=== PATIENT | female | born 1935 | race Caucasian/White ===

== ENCOUNTER → 2016-09-25 | Outpatient (CLI) | payer BC ==
[~2016-09-25] MED LIST: ACET-1256 PO; ACIDOPHILUS PO; ACP20 PO; ARM1 PO; ARTIDRO2 OPB; ASCO500T16 PO; ASPI-428 PO; ASPI81TA28 PO; ATEN-173 PO; B-CO1CAP3 PO; CALC600T9 PO; CEFU1TAB36 PO; CLON1TAB3 PO; CLRD24 PO; COEN100C11 PO; CRFL PO; CRS/10 PO; CRS10 PO; DYZC25/50 PO; FEXO1TAB49 PO; GABA-113 PO; GARLTAB3 PO; GLUCPOW41 PO; HYDR25SU20 PR; LACT10CA3 PO; LISI5TAB PO; MISCCAP80 PO; MULT-190 PO; MULT-506 PO; NXM/40 PO; OMEG10007 PO; OSCAL ULTRA PO; REFRESH EYE DROPS; REGADENOSON 0.4 MG/5 ML SYR ONE; RIVA1TAB4 PO; TRAM37.52 PO; TRAMTAB5 PO; TRIA1SPR4 NAE; TRIATAB3 PO; [UNRECOGNIZED DRUG - CODE] VAGRING; [UNRECOGNIZED DRUG - OTHER] PO; [UNRECOGNIZED DRUG - OTHER] PV
--- NOTE | 2016-09-25 18:17 | MYOCARDIAL PERFUSION SCAN ---
[facility] CARDIOLITE STRESS TEST IMAGING TECHNIQUE: For the rest portion of the study 32.4 mCi of technetium- 99m Cardiolite IV was injected at 1:10 p.m. on 09/25/2016. Thirty minutes following the injection, imaging of the heart as performed in multiple projections. For the rest portion of the study, 10.8 mCi of technetium-99m Cardiolite was injected IV at 11:15 a.m. One hour following the injection, imaging of the heart was performed in the same projections. FINDINGS: The short axis, vertical long axis, and horizontal long axis images were reviewed in detail. There was a small to moderate size reversible defect noted on the stress images which may represent a small to moderate area of ischemia or breast attenuation. Review of gated images suggested the defect was primarily due to breast attenuation, however, a small area of ischemia could not be definitively excluded. Gated images showed normal left ventricular systolic function with estimated ejection fraction of 84%. No definite wall motion abnormality is seen. IMPRESSION: 1. No definite scintigraphic evidence of myocardial ischemia. A small to moderate apical defect was felt to be predominantly breast attenuation but a small area of anterior myocardial ischemia could not be excluded. 2. Normal left ventricular systolic function with no wall motion abnormalities ( EF=84%). 3. No ECG changes during pharmacologic stress. 4. No symptoms. [facility]
== END | disposition home or self-care (01) ==
LOC: C.NUCL 10:51
PROVIDERS: ATTEND Family Medicine
DX: I65.29 Occlusion and stenosis of unspecified carotid artery (principal); R94.31 Abnormal electrocardiogram [ECG] [EKG]; Z01.810 Encounter for preprocedural cardiovascular examination

== ENCOUNTER → 2016-10-30 | Outpatient (CLI) | payer BC ==
[~2016-10-30] MED LIST changes: -REGADENOSON 0.4 MG/5 ML SYR ONE
[2016-10-30 18:27] LABS: HEMATOCRIT 40.3 % (37-47); MEAN CELL VOLUME 95.7 fL (80-100); MEAN CORPUSCULAR HEMOGLOBIN 32.1 pg (25-34); MEAN CORPUSCULAR HGB CONC 33.5 g/dl (32-36); MEAN PLATELET VOLUME 11.3 fL (7.4-10.4); PLATELET COUNT 210 K/uL (130-400); RED BLOOD COUNT 4.21 M/uL (4.2-5.4)
[2016-10-30 18:31] LABS: INR 1.1 (0.9-1.1); PROTHROMBIN TIME (PATIENT) 11.6 SECONDS (9.0-12.0)
[2016-10-30 18:52] LABS: BLOOD UREA NITROGEN 23 mg/dl (7-18); BUN/CREATININE RATIO 20.7 (10-20); CALCIUM 9.5 mg/dl (8.5-10.1); CARBON DIOXIDE 31 mmol/L (21-32); CHLORIDE 104 mmol/L (98-107); GLUCOSE 90 mg/dl (70-99); POTASSIUM 4.2 mmol/L (3.5-5.1); SODIUM 144 mmol/L (136-145)
== END | disposition home or self-care (01) ==
LOC: C.LABMFLN 13:52
PROVIDERS: ATTEND Internal Medicine Cardiovascular Disease
DX: I10 Essential (primary) hypertension (principal); E78.00 Pure hypercholesterolemia, unspecified; R06.09 Other forms of dyspnea; I35.0 Nonrheumatic aortic (valve) stenosis; R94.39 Abnormal result of other cardiovascular function study

== ENCOUNTER → 2016-11-11 | Day surgery (SDC) | payer BC ==
[~2016-11-11] VITALS: Ht 162.6 cm; Wt 77.0 kg
[~2016-11-11] MED LIST changes: +ACETAMINOPHEN 325 MG TAB PO PRN; +ASPIRIN 81 MG CHEW ONE; +FENTANYL CITRATE INJ 50 MCG/1 ML 2 ML VIAL ONE; +HEPARIN SOD (PORCINE) 1000 UNIT/ML 10 ML VIAL ONE; +MIDAZOLAM HCL 1 MG/ML 2ML VIAL ONE; +NITROGLYCERIN/D5W 100MCG/ML 20ML SYR ONE; +NiCARDipine HCL INJ 2.5 MG/ML 10 ML AMP ONE; +ONDANSETRON INJ 2 MG/ML 2 ML VIAL IV PRN; +SODIUM CHLORIDE 0.9% 1000ML 1,000 ML IV SCH; +SODIUM CHLORIDE 0.9% 1000ML 250 ML IV PRN
[2016-11-11 07:05] VITALS: BP 151/97; PULSE 63; TEMP 36.6; O2SAT 99; Ht 162.6 cm; Wt 77.0 kg
--- NOTE | 2016-11-11 08:06 | Procedure Note ---
Pre-Mod Sedation Assessment General Date of Moderate Sedation: Nov 11, 2016. Vital Signs: Vital Signs Past 12 Hours Date Time Temp Pulse Resp B/P Pulse Ox O2 Delivery O2 Flow Rate FiO2 11/11/16 07:05 36.6 63 18 151/97 99 Room Air Review Cardiovascular: regular rate, rhythm, + systolic murmur Abdomen: non tender, soft Lungs: lungs clear Pre-Sedation Airway Assessment Oral Cavity: Dentures Short Thick Neck: No Hx of Sleep Apnea: No Smoking Status: Never Smoker Procedure Planning Contraindications-for Mod Sed: None Yes Notes The planned sedation has been discussed with the patient and consent obtained. I have identified the patient, determined the appropriateness of sedation and have assessed the patient immediately prior to the procedure. All medicine(s) and interventions are by my order.
--- NOTE | 2016-11-11 08:06 | History & Physical Bridge Note ---
H&P Re-Evaluation Bridge Note: I have examined the patient, reviewed the History & Physical and in the interval since the performance of the History & Physical I have noted the following changes of clinical significance: No changes noted
--- NOTE | 2016-11-11 09:08 | Procedure Note ---
Post-Mod Sedation Assessment General Date of Moderate Sedation Nov 11, 2016. Vital Signs: Vital Signs Past 12 Hours Date Time Temp Pulse Resp B/P Pulse Ox O2 Delivery O2 Flow Rate FiO2 11/11/16 07:05 36.6 63 18 151/97 99 Room Air Review - Discharge Criteria Vital Signs Stable: Yes Alert/Oriented/Conversant: Yes Returned to Baseline Mental St: Yes Nausea Absent/Minimal: Yes Pain/Discomfort/Absent/Minimal: Yes Normal/Baseline Respirations: Yes Active Bleeding?: No
--- NOTE | 2016-11-11 09:16 | Cardiac Catheterization ---
Procedure Note Procedure Date Nov 11, 2016. Pre-Procedure Diagnosis Positive Stress Test AUC Score 9 Post-Procedure Diagnosis Mild CAD Procedure(s) Performed Coronary Angiography Payroll Accounting Clerk Dr. Foley Insulation Supervisor(s) Mckenna Estimated Blood Loss < 20 ml Medication(s) Fentanyl, Heparin, Nicardipine, Versed, Lidocaine 1% Summary of Findings Coronary angiography: 1. Left main coronary artery: No significant CAD noted within the LM CA. 2. Left anterior descending: The LAD is a medium caliber vessel that extends toward the apex. Proximal LAD 10%. Small D1, without angiographic evidence of CAD. Remainder of LAD without significant CAD. 3. Circumflex: The circumflex is a large caliber vessel. It gives rise to a small caliber high OM 1, very small OM2, and then tapers to a small caliber AV groove circumflex. There is a large OM3 with proximal 40% and mid 30% stenosis. 4. Right coronary artery: The RCA is dominant. Proximal RCA 20%. Small posterior lateral vessel and medium caliber PDA. No angiographic evidence of CAD within the PL or PDA. Procedural notes: 1. There were no attempt to cross the aortic valve as she has documented moderate aortic stenosis on echocardiogram. Impression: 1. 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 2. Dominant RCA. 3. Previously documented moderate aortic stenosis. Plan: 1. Medical therapy for nonobstructive CAD. Hemodynamics Rest Ao: 159/62 Final Ao: 144/55 LV: n/a Recommendations Medical therapy and/or Counseling Specimens None Radiation Exposure (mGy) 950 mGy. Fluoro time 3.3 min. Contrast (mls) 50 ml Procedural Complication(s) None Disposition Tomographic Tech Holding/Recovery [facility] Data Cardiac Status Clinical evaluation leading to the procedure CAD Presntation: Positive Stress Test Anginal Classification: No symptoms Heart Failure: No Cardiogenic Shock w/in 24Hrs: No Cardiac Arrest w/in 24Hrs: No Imaging studies past 6 months: Yes (echo - moderate aortic stenosis) Stress studies past 6 months: No Standard Exercise Stress Test: No Stress Echocardiogram: No Stress Testing w/SPECT MPI: Yes - Positive, Risk/Extent of Ischemia (High) Cardiac CTA: No Coronary Anatomy Dominant: Right Left Main (% Stenosis): Normal LAD (% Stenosis): Proximal (10%) D1 (% Stenosis): Normal Circumflex (% Stenosis): Normal OM1 (% Stenosis): Normal OM2 (% Stenosis): Normal OM3 (% Stenosis): Proximal (40%), Mid (30%) RCA (% Stenosis): Proximal (20%) R PDA (% Stenosis): Normal R PL1 (% Stenosis): Normal Left Ventricular Angiography EF (%): n/a Diagnostic Physician's Name: Collin Foley MD Status: Elective Closure Device Percutaneous Entry Location: Radial Closure Device: Radial Band Recommendations: Medical therapy and/or Counseling
--- NOTE | 2016-11-11 09:20 | Discharge Instructions ---
Discharge Instructions Visit Reason for Visit: Cardiac catheterization for abnormal nuclear stress test. Discharge Discharge Diagnosis / Problem: Mild non-obstructive coronary artery disease. Discharge Goals Goal(s): Diagnostic testing Medications Restart Stopped Medication(s): Resume your usual medications. No changes were made today. Activity Recommendations Activity Limitations: per Instructions/Follow-up section Anesthesia . Post Anesthesia Instructions: If you have had General Anesthesia or IV Sedation: * Do not drive today. * Resume driving when surgeon permits. * Do not make important decisions or sign legal documents today. * Call surgeon for: 1. Temperature elevations greater than 101 degrees F. 2. Uncontrollable pain. 3. Excessive bleeding. 4. Persistent nausea and vomiting. 5. Medication intolerance (nausea, vomiting or rash). * For nausea and vomiting use only clear liquids such as: tea, soda, bouillon until nausea subsides, then gradually increase diet as tolerated. * If you have any concerns or questions, call your surgeon's office. If physician is unavailable and it is an emergency, call 911 or go to the nearest emergency room. . Instructions / Follow-Up Instructions / Follow-Up Follow up with Dr. Foley as scheduled. ACTIVITY RECOMMENDATIONS: Excess manipulation of the wrist should be avoided for the next 24-48 hours. * No lifting over 2 pounds (approximately a 1/2 gallon of milk) with the utilized arm for 24 hours. * No strenuous activity such as bowling or tennis for 3 days. * Keep the site of the procedure covered with a bandage for 24 hours. *You may shower the day after the procedure. Do not take a tub bath or submerge the puncture site in water for the next 3 days. *Do not operate any motorized equipment for 3 days. SPECIAL CARE INSTRUCTIONS: The site may be slightly bruised and sore following your procedure. Should any of the following occur, contact the Dr. who performed your procedure. 1. Redness/inflammation, swelling, chills, or fever, or colored drainage at procedure site within 3-7 days after your procedure. 2. Coldness, discoloration, ongoing numbness, severe pain, or swelling. Expect mild tingling of hand and tenderness at the puncture site for up to three days. If this persists beyond three days, or other symptoms develop, notify the DrHarini who performed your procedure. BLEEDING: If the procedure site on your wrist begins to bleed, do not panic 1. Place 1 or 2 fingers firmly just slightly above the insertion site to stop the bleeding. You may be able to feel your pulse as you hold pressure. 2. Lift your finger after 5 minutes to see if the bleeding has stopped. 3. Once the bleeding has stopped, gently wipe the wrist area clean with a bandage. * If the bleeding from your wrist does not stop after 10 minutes, or if there is a large amount of bleeding or spurting, call 911 (do not drive yourself to the hospital). SKIN IRRITATION: * You may experience some redness and/or swelling in the area where radiation was administered. If any skin irritation occurs, please contact your family physician. FOLLOW UP VISIT: Keep any scheduled doctor appointments. Diet Recommendations Recommended Home Diet: low cholesterol Procedures Procedures Performed: 1. Cardiac catheterization (coronary angiography) Pending Studies Studies pending at discharge: yes List of pending studies: Lab/blood work to be done as instructed by research laboratory manager staff. Medical Emergencies . Who to Call and When: Medical Emergencies: If at any time you feel your situation is an emergency, please call 911 immediately. . Non-Emergent Contact Non-Emergency issues call your: Primary Care Provider, Rural Mail Contractor . . "Provider Documentation" section prepared by Collin Gonzáles.
[2016-11-11 11:54] VITALS: BP 164/72; PULSE 78; O2SAT 98
== END | disposition home or self-care (01) ==
LOC: C.CATH 06:28
PROVIDERS: ATTEND Internal Medicine Cardiovascular Disease
DX: I25.10 Atherosclerotic heart disease of native coronary artery without angina pectoris (principal)

== ENCOUNTER → 2016-11-25 | Outpatient (CLI) | payer BC, OTHER ==
[~2016-11-25] VITALS: Ht 162.6 cm; Wt 81.2 kg
[~2016-11-25] MED LIST changes: +ACET-24 PO; -ACETAMINOPHEN 325 MG TAB PO PRN; -ACIDOPHILUS PO; -ACP20 PO; -ARM1 PO; -ASPIRIN 81 MG CHEW ONE; -CLON1TAB3 PO; -CLRD24 PO; -CRS10 PO; -DYZC25/50 PO; -FENTANYL CITRATE INJ 50 MCG/1 ML 2 ML VIAL ONE; +FRRG PO; -GARLTAB3 PO; -HEPARIN SOD (PORCINE) 1000 UNIT/ML 10 ML VIAL ONE; -MIDAZOLAM HCL 1 MG/ML 2ML VIAL ONE; -NITROGLYCERIN/D5W 100MCG/ML 20ML SYR ONE; -NiCARDipine HCL INJ 2.5 MG/ML 10 ML AMP ONE; -ONDANSETRON INJ 2 MG/ML 2 ML VIAL IV PRN; -OSCAL ULTRA PO; -REFRESH EYE DROPS; -SODIUM CHLORIDE 0.9% 1000ML 1,000 ML IV SCH; -SODIUM CHLORIDE 0.9% 1000ML 250 ML IV PRN; +ULT50X PO; -[UNRECOGNIZED DRUG - OTHER] PO; -[UNRECOGNIZED DRUG - OTHER] PV
[2016-11-25 12:59] VITALS: Ht 162.6 cm; Wt 81.2 kg
--- NOTE | 2016-11-25 13:43 | PAT Medication Instructions ---
Service Date Nov 25, 2016. Current Home Medication List Acetaminophen (Tylenol), 1,000 MG PO BID Ascorbic Acid (Ascorbic Acid), 500 MG PO QAM Aspirin (Aspirin Ec), 81 MG PO QAM Atenolol (Tenormin), 25 MG PO QAM B-Complex Vitamins (B Complex), 1 TAB PO QAM Calcium Carbonate-Vitamin D (Calcium + D), 1 TAB PO BID Coenzyme Q10 (Ubidecarenone) (Coq-10), 100 MG PO QAM Esomeprazole Magnesium (Nexium), 40 MG PO QAM Fexofenadine Hcl (Roberta Allergy), 180 MG PO QAM Fish Oil (Asher-3), 1 CAP PO QPM Gabapentin (Neurontin), 300 MG PO TID Itthlheirdy-Kwcdazcjsgp-Rkvutc (Glucosamine & Chrondroiti), 1 TAB PO BID Hydrocortisone Acetate (Rectal (Anusol-Hc), 25 MG PA BID Multivitamin (Multivitamin), 1 TAB PO QAM Ocuvite Preservision (Ocuvite Preservision), 1 TAB PO BID Probiotic Product (Probiotic), 1 CAP PO QPM Rosuvastatin Calcium (Crestor), 10 MG PO QPM Sucralfate (Carafate), 10 ML PO QID PRN for prn Tramadol-Acetaminophen (Ultracet), 1 TAB PO Q4H PRN for Pain Triamcinolone Acetonide (Nasal (Nasacort Allergy 24Hr), 2 SPRAYS MANASA QAM Triamterene/Hctz (Triamterene/Hctz 37.5-25MG), 1 TAB PO QAM Medication Instructions For Your Scheduled Surgery - Hold the following medications 2 weeks prior to surgery: Zizmztgddij-Ytejpfkagwj-Hetcsi (Glucosamine & Chrondroiti), 1 TAB PO BID Fish Oil (Asher-3), 1 CAP PO QPM Coenzyme Q10 (Ubidecarenone) (Coq-10), 100 MG PO QAM - Hold the following medications the morning of surgery: Triamterene/Hctz (Triamterene/Hctz 37.5-25MG), 1 TAB PO QAM Sucralfate (Carafate), 10 ML PO QID PRN for prn Ocuvite Preservision (Ocuvite Preservision), 1 TAB PO BID Multivitamin (Multivitamin), 1 TAB PO QAM Hydrocortisone Acetate (Rectal (Anusol-Hc), 25 MG PA BID Fexofenadine Hcl (Roberta Allergy), 180 MG PO QAM Calcium Carbonate-Vitamin D (Calcium + D), 1 TAB PO BID B-Complex Vitamins (B Complex), 1 TAB PO QAM Ascorbic Acid (Ascorbic Acid), 500 MG PO QAM - Take the following medications the morning of surgery with a sip of water: Triamcinolone Acetonide (Nasal (Nasacort Allergy 24Hr), 2 SPRAYS MANASA QAM Tramadol-Acetaminophen (Ultracet), 1 TAB PO Q4H PRN for Pain (okay to take up to 4 hours prior to surgery if needed) Gabapentin (Neurontin), 300 MG PO TID Esomeprazole Magnesium (Nexium), 40 MG PO QAM Atenolol (Tenormin), 25 MG PO QAM Acetaminophen (Tylenol), 1,000 MG PO BID Aspirin (Aspirin Ec), 81 MG PO QAM (okay to continue per surgeon) - Take the following medications as scheduled the night before surgery: Tramadol-Acetaminophen (Ultracet), 1 TAB PO Q4H PRN for Pain Sucralfate (Carafate), 10 ML PO QID PRN for prn Rosuvastatin Calcium (Crestor), 10 MG PO QPM Probiotic Product (Probiotic), 1 CAP PO QPM Ocuvite Preservision (Ocuvite Preservision), 1 TAB PO BID Hydrocortisone Acetate (Rectal (Anusol-Hc), 25 MG PA BID Gabapentin (Neurontin), 300 MG PO TID Calcium Carbonate-Vitamin D (Calcium + D), 1 TAB PO BID Acetaminophen (Tylenol), 1,000 MG PO BID If you have any questions please call us at [phone] (Izzy Saenz PA-C) or [phone] or [phone]
[2016-11-25 14:40] LABS: BASO % 0.8 %; BASO ABS # 0.05 K/uL (0-0.2); COMPLETE YES; EOS % 1.3 %; HEMATOCRIT 39.7 % (37-47); IG% 0.2 %; LYMPH % 24.3 %; LYMPH ABS # 1.47 K/uL (1.2-3.4); MEAN CELL VOLUME 93.9 fL (80-100); MEAN PLATELET VOLUME 11.1 fL (7.4-10.4); MONO % 11.4 %; PLATELET COUNT 236 K/uL (130-400); RED BLOOD COUNT 4.23 M/uL (4.2-5.4); WHITE BLOOD COUNT 6.06 K/uL (4.8-10.8)
[2016-11-25 14:47] LABS: PARTIAL THROMBOPLASTIN RATIO 1.1; PROTHROMBIN TIME (PATIENT) 11.1 SECONDS (9.0-12.0)
== END | disposition home or self-care (01) ==
LOC: C.LAB 08:00 → EDSTATUS 12-22 12:15
PROVIDERS: ATTEND Orthopaedic Surgery Sports Medicine
DX: Z01.818 Encounter for other preprocedural examination (principal); M17.9 Osteoarthritis of knee, unspecified

== ENCOUNTER 2016-12-11 14:13 | Inpatient (IN) | payer BC ==
[~2016-12-11] VITALS: Ht 162.6 cm; Wt 79.0 kg
[~2016-12-11 14:13] MED LIST changes: -ACET-24 PO; -ARTIDRO2 OPB; -ASPI-428 PO; -CEFU1TAB36 PO; -FRRG PO; -LACT10CA3 PO; -LISI5TAB PO; -RIVA1TAB4 PO; -TRAMTAB5 PO; -ULT50X PO; -[UNRECOGNIZED DRUG - CODE] VAGRING
[2016-12-11] MEDS ORDERED: SODIUM CHLORIDE 0.9% 1000ML 1,000 ML IV STA (14:51)
[2016-12-11] MEDS ORDERED: DILTIAZEM HCL 5 MG/ML 5 ML VIAL IV STA (14:51)
--- NOTE | 2016-12-11 14:53 | DIAGNOSTIC IMAGING REPORT ---
CHEST ONE VIEW PORTABLE CLINICAL HISTORY: Palpitations COMPARISON STUDY: No previous studies for comparison. FINDINGS: The heart is at the upper limits of normal in size. There is no failure. There is no focal pulmonary consolidation. There are no pleural effusions. There is minimal left basilar atelectasis.[ IMPRESSION: No active disease in the chest. Electronically signed by: Wood Geiger M.D. 12/11/2016 2:51 PM Dictated Date/Time: 12/11/2016 2:51 PM
[2016-12-11 15:08] LABS: BASO % 0.6 %; BASO ABS # 0.04 K/uL (0-0.2); COMPLETE YES; HEMATOCRIT 44.8 % (37-47); IG% 0.1 %; LYMPH % 27.1 %; LYMPH ABS # 1.89 K/uL (1.2-3.4); MEAN CELL VOLUME 92.9 fL (80-100); MEAN CORPUSCULAR HEMOGLOBIN 31.3 pg (25-34); MEAN CORPUSCULAR HGB CONC 33.7 g/dl (32-36); MEAN PLATELET VOLUME 10.5 fL (7.4-10.4); NEUT % 64.2 %; PLATELET COUNT 267 K/uL (130-400); RED BLOOD COUNT 4.82 M/uL (4.2-5.4); WHITE BLOOD COUNT 6.98 K/uL (4.8-10.8)
[2016-12-11 15:25] LABS: INR 1.1 (0.9-1.1); PARTIAL THROMBOPLASTIN RATIO 1.1; PROTHROMBIN TIME (PATIENT) 11.6 SECONDS (9.0-12.0)
[2016-12-11 15:28] LABS: CALCIUM 10.2 mg/dl (8.5-10.1); CREATININE 1.1 mg/dl (0.60-1.20); MAGNESIUM 2.2 mg/dl (1.8-2.4); POTASSIUM 4.2 mmol/L (3.5-5.1)
[2016-12-11 15:51] LABS: CKMB/CK RATIO 1.5 (0-3.0); THYROID STIMULATING HORMONE 3.24 uIu/ml (0.300-4.500)
[2016-12-11] MEDS ORDERED: CEFU1TAB36 PO (15:59)
--- NOTE | 2016-12-11 16:24 | DIAGNOSTIC IMAGING REPORT ---
CT SCAN OF THE BRAIN WITHOUT IV CONTRAST CLINICAL HISTORY: Headache. COMPARISON STUDY: MRI of the brain dated 04/23/2016. TECHNIQUE: Unenhanced axial CT scan of the brain is performed from the vertex to the skull base. FINDINGS: Brain parenchyma: There are age-related involutional changes noting mild subcortical and periventricular microangiopathic change. There is no hemorrhage, mass effect, or evidence of acute territorial ischemia by CT criteria. Amaya-white matter is preserved. No extra-axial fluid collection is seen. Ventricles, sulci, cisterns: Prominent secondary to involutional change. Intracranial vasculature: There is atherosclerotic calcification of the cavernous carotid and vertebral arteries. Calvarium: Unremarkable. Sinuses and mastoids: The visualized paranasal sinuses are clear. The mastoid air cells are well pneumatized. Orbits: The bony orbits are grossly intact. IMPRESSION: There is no hemorrhage, mass effect, or evidence of acute territorial ischemia by CT criteria. Electronically signed by: Francisco Cervantes M.D. 12/11/2016 4:22 PM Dictated Date/Time: 12/11/2016 4:21 PM
[2016-12-11 16:36] LABS: URINE APPEARANCE CLEAR (CLEAR); URINE BILIRUBIN NEG (NEG); URINE COLOR YELLOW; URINE NITRITE NEG (NEG); URINE SPECIFIC GRAVITY 1.007 (1.000-1.030); UROBILINOGEN NEG (NEG)
--- NOTE | 2016-12-11 16:38 | DIAGNOSTIC IMAGING REPORT ---
MAXILLOFACIAL CT CT DOSE: 850.01 mGy.cm HISTORY: Pain. Sinusitis. RIVERO and sinus pain, requested by PCP TECHNIQUE: Multiaxial CT images of the maxillofacial region were performed and reformatted in the coronal plane without the use of contrast. COMPARISON: None. FINDINGS: All major sinuses are clear. Ostiomeatal units are patent bilaterally. Moderate hypertrophic change nasal turbinates. Osseous structures are intact. Prior partial ethmoidectomy. IMPRESSION: All major sinuses are clear. 2. Ostiomeatal units are patent. 3. Hypertrophic change nasal turbinates. Electronically signed by: Darien Posada M.D. 12/11/2016 4:36 PM Dictated Date/Time: 12/11/2016 4:35 PM
[2016-12-11 16:44] LABS: MANUAL MICROSCOPIC REQUIRED? NO; REVIEW REQ? NO
[2016-12-11] MEDS ORDERED: TRAMADOL/ACETAMINOPHEN 37.5/325MG TAB PO PRN (17:45)
[2016-12-11] MEDS ORDERED: MAGNESIUM HYDROXIDE SUSP 30 ML UDC PO PRN (17:45)
[2016-12-11] MEDS ORDERED: SUCRALFATE 1 GM/10 ML UDC PO PRN (17:45)
[2016-12-11] MEDS ORDERED: ACETAMINOPHEN 325 MG TAB PO PRN (17:45)
[2016-12-11] MEDS ORDERED: ALUMINUM/MAGNESIUM/SIMETH (MAALOX MAX) 30 ML UDC PO PRN (17:45)
[2016-12-11] MEDS ORDERED: POLYETHYLENE (MIRALAX) 17 GM PACK PO PRN (17:45)
[2016-12-11] MEDS ORDERED: ONDANSETRON INJ 2 MG/ML 2 ML VIAL IV PRN (17:45)
[2016-12-11 19:22] VITALS: BP 160/82; PULSE 68; TEMP 37; O2SAT 96; Ht 162.6 cm; Wt 79.0 kg
--- NOTE | 2016-12-11 19:25 | History and Physical ---
History & Physical Date & Time of Service: Dec 11, 2016 at 19:02 Chief Complaint: New On Set A-Fib Primary Care Physician: Cassidy Hernandez M.D. History of Present Illness Source: patient, clinic records, hospital records This is an 81 y/o female with a history of breast cancer s/p lumpectomy and radiation, carotid stenosis s/p carotid endarterectomy, hypertension, hyperlipidemia, h/o TIA in April 2016, lumbar stenosis, and GERD who presented to the ED on 12/11 with palpitations, dizziness, nausea and new onset A. fib. The patient presented to her PCP office following up on sinusitis. She had been complaining of palpitations and dizziness for the last week. An EKG was done in the office and she was found to have new onset of A. fib. She was then sent to the ED for further evaluation. The patient states that her palpitations are intermittent and are accompanied by dizziness and nausea. She denies any chest pain or shortness of breath. The patient has a history of a TIA in April 2016 and was then found to have carotid stenosis, which was followed by carotid endarterectomy. The patient recently had an echocardiogram in September 2016 which showed moderate aortic stenosis. She also had a nuclear stress test at that time that showed an apical defect that was possibly due to anterior myocardial ischemia. The patient therefore had a cardiac catheterization in October 2016, but this only showed mild, nonobstructive CAD. The patient denies fevers, chills, sweats, chest pain, claudication, cough , wheezing, shortness of breath, vomiting, abdominal pain, dysuria, hematuria, urinary retention, paralysis, weakness, numbness and tingling. Past Medical/Surgical History Medical Problems: (1) TIA (transient ischemic attack) April 2016 Status: Resolved H/o breast cancer status post lumpectomy and radiation Carotid stenosis Hypertension Hyperlipidemia GERD Surgical Problems: (1) S/P carotid endarterectomy April 2016 at [facility] Status: Resolved Family History Diabetes mellitus Hypertension Pancreatic cancer Stroke Social History Smoking Status: Never Smoker Smokeless Tobacco Use: No Alcohol Use: none Drug Use: none Marital Status: Housing status: lives alone Occupational Status: retired Immunizations History of Influenza Vaccine: Yes History of Tetanus Vaccine?: Yes History of Pneumococcal: Yes History of Hepatitis B Vaccine: Yes Allergies Coded Allergies: Levofloxacin (Unverified Allergy, Unknown, muscle and joint pain, 11/25/16) Tetanus Toxoid (Verified Allergy, Unknown, CHEST PAIN, RESTLESSNESS, ) Atorvastatin (Verified Adverse Reaction, Intermediate, ELEVATED OPK LEVEL PER FAMILY PRACTICE NOTES ON CHART, 11/25/16) Tetracycline (Verified Adverse Reaction, Unknown, ESOPHAGEAL EROSION, ) Home Medications Scheduled Acetaminophen (Tylenol), 1,000 MG PO BID Ascorbic Acid (Ascorbic Acid), 500 MG PO QAM Aspirin (Aspirin Ec), 81 MG PO QAM Atenolol (Tenormin), 25 MG PO QPM B-Complex Vitamins (B Complex), 1 TAB PO QAM Calcium Carbonate-Vitamin D (Calcium + D), 1 TAB PO BID Cefuroxime Axetil (Cefuroxime Axetil), 1 TAB PO Q12 Coenzyme Q10 (Ubidecarenone) (Coq-10), 100 MG PO QAM Esomeprazole Magnesium (Nexium), 40 MG PO QAM Fexofenadine Hcl (Roberta Allergy), 180 MG PO QAM Fish Oil ([place]-3), 1 CAP PO QPM Gabapentin (Neurontin), 300 MG PO TID Mrkyfkycoae-Ohimssssxwi-Qjnmdj (Glucosamine & Chrondroiti), 1 TAB PO BID Multivitamin (Multivitamin), 1 TAB PO QAM Ocuvite Preservision (Ocuvite Preservision), 1 TAB PO BID Probiotic Product (Probiotic), 1 CAP PO QPM Rosuvastatin Calcium (Crestor), 10 MG PO QPM Triamcinolone Acetonide (Nasal (Nasacort Allergy 24Hr), 2 SPRAYS MANASA QAM Triamterene/Hctz (Triamterene/Hctz 37.5-25MG), 1 TAB PO QAM Scheduled PRN Hydrocortisone Acetate (Rectal (Anusol-Hc), 25 MG [place] BID PRN for Hemorrhoids Sucralfate (Carafate), 10 ML PO QID PRN for prn Tramadol-Acetaminophen (Ultracet), 1 TAB PO Q4H PRN for Pain Review of Systems Constitutional: No chills, No fever, No sweats Eyes: No diplopia, No eye pain, No worsening of vision ENT: No hearing loss, No sore throat, No trouble swallowing Respiratory: No cough, No shortness of breath, No wheezing Cardiovascular: + palpitations (associated lightheadedness and nausea), No chest pain, No claudication Abdomen: + nausea, No pain, No vomiting Musculoskeletal: No calf pain, No joint pain, No muscle pain Genitourinary - Female: No dysuria, No hematuria, No urinary retention Neurologic: No numbness/tingling, No paralysis, No weakness Integumentary: No color change, No itch, No rash Physical Exam Vital Signs Date Time Temp Pulse Resp B/P Pulse Ox O2 Delivery O2 Flow Rate FiO2 12/11/16 16:30 98 20 112/68 96 Room Air 12/11/16 15:17 59 16 131/61 94 Room Air 12/11/16 15:10 68 16 124/54 97 Room Air 12/11/16 15:06 67 16 154/89 95 12/11/16 15:00 147 18 139/102 95 Room Air 12/11/16 14:59 133 20 139/102 97 Room Air 12/11/16 14:25 134 12/11/16 14:15 36.7 134 18 138/65 97 Room Air 12/11/16 14:15 97 Room Air 12/11/16 14:15 97 Room Air General Appearance: WD/WN, no apparent distress Head: normocephalic, atraumatic Eyes: normal inspection, PERRL, EOMI ENT: normal ENT inspection, hearing grossly normal, pharynx normal Neck: supple, no JVD, trachea midline Respiratory/Chest: lungs clear, normal breath sounds, no respiratory distress Cardiovascular: regular rate, rhythm (patient normal sinus rhythm during my examination. did have 1 episode afib on monitor briefly, then returned to NSR) , no gallop, no murmur Abdomen/GI: normal bowel sounds, non tender, soft Extremities/Musculoskelatal: normal inspection, no calf tenderness, no pedal edema Neurologic/Psych: alert, normal mood/affect, oriented x 3 Skin: normal color, warm/dry, no rash Diagnostics Laboratory Results Results Past 24 Hours Test 12/11/16 14:58 12/11/16 16:01 Range/Units White Blood Count 6.98 4.8-10.8 K/uL Red Blood Count 4.82 4.2-5.4 M/uL Hemoglobin 15.1 12.0-16.0 g/dL Hematocrit 44.8 37-47 % Mean Corpuscular Volume 92.9 80-100 fL Mean Corpuscular Hemoglobin 31.3 25-34 pg Mean Corpuscular Hemoglobin Concent 33.7 32-36 g/dl Platelet Count 267 130-400 K/uL Mean Platelet Volume 10.5 7.4-10.4 fL Neutrophils (%) (Auto) 64.2 % Lymphocytes (%) (Auto) 27.1 % Monocytes (%) (Auto) 7.0 % Eosinophils (%) (Auto) 1.0 % Basophils (%) (Auto) 0.6 % Neutrophils # (Auto) 4.48 1.4-6.5 K/uL Lymphocytes # (Auto) 1.89 1.2-3.4 K/uL Monocytes # (Auto) 0.49 0.11-0.59 K/uL Eosinophils # (Auto) 0.07 0-0.5 K/uL Basophils # (Auto) 0.04 0-0.2 K/uL RDW Standard Deviation 41.6 36.4-46.3 fL RDW Coefficient of Variation 12.2 11.5-14.5 % Immature Granulocyte % (Auto) 0.1 % Immature Granulocyte # (Auto) 0.01 0.00-0.02 K/uL Prothrombin Time 11.6 9.0-12.0 SECONDS Prothromb Time International Ratio 1.1 0.9-1.1 Activated Partial Thromboplast Time 29.5 21.0-31.0 SECONDS Partial Thromboplastin Ratio 1.1 Sodium Level 142 136-145 mmol/L Potassium Level 4.2 3.5-5.1 mmol/L Chloride Level 103 98-107 mmol/L Carbon Dioxide Level 29 21-32 mmol/L Anion Gap 10.0 3-11 mmol/L Blood Urea Nitrogen 25 7-18 mg/dl Creatinine 1.10 0.60-1.20 mg/dl Est Creatinine Clear Calc Drug Dose 42.1 ml/min Estimated GFR () 54.5 Estimated GFR (Non- 47.0 BUN/Creatinine Ratio 23.0 10-20 Random Glucose 91 70-99 mg/dl Calcium Level 10.2 8.5-10.1 mg/dl Magnesium Level 2.2 1.8-2.4 mg/dl Total Bilirubin 0.4 0.2-1 mg/dl Direct Bilirubin 0.1 0-0.2 mg/dl Aspartate Amino Transf (AST/SGOT) 34 15-37 U/L Alanine Aminotransferase (ALT/SGPT) 20 12-78 U/L Alkaline Phosphatase 81 45-117 U/L Total Creatine Kinase 168 26-192 U/L Creatine Kinase MB 2.5 0.5-3.6 ng/ml Creatine Kinase MB Ratio 1.5 0-3.0 Troponin I 0.097 0-0.045 ng/ml Total Protein 8.8 6.4-8.2 gm/dl Albumin 4.3 3.4-5.0 gm/dl Lipase 160 73-393 U/L Thyroid Stimulating Hormone (TSH) 3.240 0.300-4.500 uIu/ml Free Thyroxine 1.11 0.80-1.60 ng/dl Urine Color YELLOW Urine Appearance CLEAR CLEAR Urine pH 8.0 4.5-7.5 Urine Specific Mason 1.007 1.000-1.030 Urine Protein NEG NEG Urine Glucose (UA) NEG NEG Urine Ketones NEG NEG Urine Occult Blood NEG NEG Urine Nitrite NEG NEG Urine Bilirubin NEG NEG Urine Urobilinogen NEG NEG Urine Leukocyte Esterase NEG NEG Diagnostic Radiology Reviewed the following studies and agree with interpretation as follows: Patient Name: BARBRA GIBBONS Unit Number: [id number] Dictated: 12/11/161450 Transcribed: 12/11/161450 ARG Printed Date/Time: [~ rep prt dt]/[~ rep prt tm] [~ rep ct labl] - [~ rep ct ivnm] [facility] [place] [address] Dictated: 12/11/161450 Transcribed: 12/11/161450 ARG Printed Date/Time: [~ rep prt dt]/[~ rep prt tm] [~ rep ct labl] - [~ rep ct ivnm] Patient: BARBRA GIBBONS Address1: [address] [place] [address] Rec: [id number] Address2: Acct ID: [id number] [facility] Zip: [place] [address] Date: 1935 Sex: F Room/Bed: Ref Phy: No Doctor, Assigned SC: IVELISSE Att Phy: Report #: [id number] Amy Phy: No Doctor, Assigned Test: CXR1P Admit Phy: Ore Trimmer: ADRIENNE Interpreting Phy: Wood Geiger M.D. Diagnosis: NEW ON SET A-FIB Ordering Phy: Ildefonso Jarvis D.O. Service Date: 12/11/16 Admit Date: 12/11/16 MNE: [id number] CONF: DICTATED BY: Wood Geiger M.D.]] CC: Ildefonso Jarvis, DO No Doctor, Assigned Endcc: [~ rep ct add3]] CHEST ONE VIEW PORTABLE CLINICAL HISTORY: Palpitations COMPARISON STUDY: No previous studies for comparison. FINDINGS: The heart is at the upper limits of normal in size. There is no failure. There is no focal pulmonary consolidation. There are no pleural effusions. There is minimal left basilar atelectasis.[ IMPRESSION: No active disease in the chest. Electronically signed by: Wood Geiger M.D. 12/11/2016 2:51 PM Dictated Date/Time: 12/11/2016 2:51 PM The status of this report is Signed. Draft = Not yet reviewed or approved by Radiologist. Signed = Reviewed and approved by Radiologist. <AttendingPhy></AttendingPhy> <FamilyPhy>No Doctor, Assigned</FamilyPhy> < PrimaryPhy>No Doctor, Assigned</PrimaryPhy> <UnitNumber>[id number]</UnitNumber> <VisitNumber>[id number]</VisitNumber> <PatientName>BARBRA GIBBONS</PatientName> <DateOfBirth>1935</DateOfBirth> <Location>C[facility]C</Location> <ServiceDate></ServiceDate> <MNE>ESINDI</MNE> <OrderingPhy>Ildefonso Jarvis D.O.</ OrderingPhy> <OrderingPhyMNE>f rep ord dr abad</OrderingPhyMNE> <DictatingPhyMNE> f rep dict dr abad</DictatingPhyMNE> <CCListMNE>f rep ct mne</CCListMNE> < AdmittingPhyMNE>f pt admit dr abad</AdmittingPhyMNE> <AttendingPhyMNE>f pt attend dr abad</AttendingPhyMNE> <ConsultingPhyMNE>f pt consult dr abad</ConsultingPhyMNE> <FamilyPhyMNE>f pt fam dr abad</FamilyPhyMNE> <OtherPhyMNE>f pt other dr abad</OtherPhyMNE> < PrimaryPhyMNE>f pt prim care dr abad</PrimaryPhyMNE> <ReferringPhyMNE>f pt referring dr abad</ReferringPhyMNE> Patient Name: BARBRA GIBBONS Unit Number: [id number] Dictated: 12/11/161634 Transcribed: 12/11/161634 MS Printed Date/Time: [~ rep prt dt]/[~ rep prt tm] [~ rep ct labl] - [~ rep ct ivnm] [facility] [place] [address] Dictated: 12/11/161634 Transcribed: 12/11/16 163 MS Printed Date/Time: [~ rep prt dt]/[~ rep prt tm] [~ rep ct labl] - [~ rep ct ivnm] Patient: BARBRA GIBBONS Address1: [address] [place] [address] Rec: [id number] Address2: Acct ID: [id number] [facility] Zip: [place] [address] Date: 1935 Sex: F Room/Bed: Ref Phy: Cassidy Hernandez M.D. SC: IVELISSE Att Phy: Report #: [id number] Amy Phy: Cassidy Hernandez M.D. Test: FBWO Admit Phy: Ore Trimmer: CHEPE Interpreting Phy: Darien Posada M.D. Diagnosis: NEW ON SET A-FIB Ordering Phy: Ildefonso Jarvis D.O. Service Date: 12/11/16 Admit Date: 12/11/16 MNE: PWRSCRIBE CONF: DICTATED BY: Darien Posada M.D.]] CC: Ildefonso Jarvis, Cassidy Gan M.D. Endcc: [~ rep ct add3]] MAXILLOFACIAL CT CT DOSE: 850.01 mGy.cm HISTORY: Pain. Sinusitis. RIVERO and sinus pain, requested by PCP TECHNIQUE: Multiaxial CT images of the maxillofacial region were performed and reformatted in the coronal plane without the use of contrast. COMPARISON: None. FINDINGS: All major sinuses are clear. Ostiomeatal units are patent bilaterally. Moderate hypertrophic change nasal turbinates. Osseous structures are intact. Prior partial ethmoidectomy. IMPRESSION: All major sinuses are clear. 2. Ostiomeatal units are patent. 3. Hypertrophic change nasal turbinates. Electronically signed by: Darien Posada M.D. 12/11/2016 4:36 PM Dictated Date/Time: 12/11/2016 4:35 PM The status of this report is Signed. Draft = Not yet reviewed or approved by Radiologist. Signed = Reviewed and approved by Radiologist. <AttendingPhy></AttendingPhy> <FamilyPhy>Cassidy Hernandez M.D.</FamilyPhy> < PrimaryPhy>Cassidy Hernandez M.D.</PrimaryPhy> <UnitNumber>[id number]</ UnitNumber> <VisitNumber>[id number]</VisitNumber> <PatientName>EDWIGEBARBRA Sondra</ PatientName> <DateOfBirth>1935</DateOfBirth> <Location>C.EDC</Location> < ServiceDate>12/11/16</ServiceDate> <MNE>ESINDI</MNE> <OrderingPhy>Ildefonso Jarvis D.O.</OrderingPhy> <OrderingPhyMNE>f rep ord dr abad</OrderingPhyMNE> <DictatingPhyMNE>f rep dict dr abad</DictatingPhyMNE> <CCListMNE>f rep ct pollo</ CCListMNE> <AdmittingPhyMNE>f pt admit dr abad</AdmittingPhyMNE> <AttendingPhyMNE >f pt attend dr abad</AttendingPhyMNE> <ConsultingPhyMNE>f pt consult dr abad</ConsultingPhyMNE> <FamilyPhyMNE>f pt fam dr abad</FamilyPhyMNE> <OtherPhyMNE>f pt other dr abad</OtherPhyMNE> < PrimaryPhyMNE>f pt prim care dr abad</PrimaryPhyMNE> <ReferringPhyMNE>f pt referring dr abad</ReferringPhyMNE> Patient Name: BARBRA GIBBONS Unit Number: [id number] Dictated: 12/11/161620 Transcribed: 12/11/161620 EV Printed Date/Time: [~ rep prt dt]/[~ rep prt tm] [~ rep ct labl] - [~ rep ct ivnm] [facility] Radiology Department [place], [place] [id number] Dictated: 12/11/161620 Transcribed: 12/11/161620 EV Printed Date/Time: [~ rep prt dt]/[~ rep prt tm] [~ rep ct labl] - [~ rep ct ivnm] Patient: BARBRA GIBBONS Address1: [address] [place] [address] Rec: [id number] Address2: Acct ID: [id number] [facility] Zip: [place] [address] Date: 1935 Sex: F Room/Bed: Ref Phy: Cassidy Hernandez M.D. SC: IVELISSE Att Phy: Report #: [id number] Amy Phy: Cassidy Hernandez M.D. Test: HWO Admit Phy: Ore Trimmer: CHEPE Interpreting Phy: Francisco Cervantes M.D. Diagnosis: NEW ON SET A-FIB Ordering Phy: Ildefonso Jarvis D.O. Service Date: 12/11/16 Admit Date: 12/11/16 MNE: PWRSCRIBE CONF: DICTATED BY: Francisco Cervantes M.D.]] CC: Ildefonso Jarvis, Cassidy Gan M.D. Endcc: [~ rep ct add3]] CT SCAN OF THE BRAIN WITHOUT IV CONTRAST CLINICAL HISTORY: Headache. COMPARISON STUDY: MRI of the brain dated 04/23/2016. TECHNIQUE: Unenhanced axial CT scan of the brain is performed from the vertex to the skull base. FINDINGS: Brain parenchyma: There are age-related involutional changes noting mild subcortical and periventricular microangiopathic change. There is no hemorrhage, mass effect, or evidence of acute territorial ischemia by CT criteria. Amaya-white matter is preserved. No extra-axial fluid collection is seen. Ventricles, sulci, cisterns: Prominent secondary to involutional change. Intracranial vasculature: There is atherosclerotic calcification of the cavernous carotid and vertebral arteries. Calvarium: Unremarkable. Sinuses and mastoids: The visualized paranasal sinuses are clear. The mastoid air cells are well pneumatized. Orbits: The bony orbits are grossly intact. IMPRESSION: There is no hemorrhage, mass effect, or evidence of acute territorial ischemia by CT criteria. Electronically signed by: Francisco Cervantes M.D. 12/11/2016 4:22 PM Dictated Date/Time: 12/11/2016 4:21 PM The status of this report is Signed. Draft = Not yet reviewed or approved by Radiologist. Signed = Reviewed and approved by Radiologist. <AttendingPhy></AttendingPhy> <FamilyPhy>Cassidy Hernandez M.D.</FamilyPhy> < PrimaryPhy>Cassidy Hernandez M.D.</PrimaryPhy> <UnitNumber>[id number]</ UnitNumber> <VisitNumber>[id number]</VisitNumber> <PatientName>EDWIGEBARBRA</ PatientName> <DateOfBirth>1935</DateOfBirth> <Location>C.EDC</Location> < ServiceDate>12/11/16</ServiceDate> <MNE>ESINDI</MNE> <OrderingPhy>Ildefonso Jarvis D.O.</OrderingPhy> <OrderingPhyMNE>f rep ord dr abad</OrderingPhyMNE> <DictatingPhyMNE>f rep dict dr abad</DictatingPhyMNE> <CCListMNE>f rep ct pollo</ CCListMNE> <AdmittingPhyMNE>f pt admit dr abad</AdmittingPhyMNE> <AttendingPhyMNE >f pt attend dr abad</AttendingPhyMNE> <ConsultingPhyMNE>f pt consult dr abad</ConsultingPhyMNE> <FamilyPhyMNE>f pt fam dr abad</FamilyPhyMNE> <OtherPhyMNE>f pt other dr abad</OtherPhyMNE> < PrimaryPhyMNE>f pt prim care dr abad</PrimaryPhyMNE> <ReferringPhyMNE>f pt referring dr abad</ReferringPhyMNE> EKG Reviewed EKG and agree with interpretation as follows: 14:39--62 bpm, NSR, incomplete RBBB 14:50--124 bpm, a-fib with RVR, RBBB Impression Assessment and Plan 81 y/o female with a history of breast cancer s/p lumpectomy and radiation, carotid stenosis s/p carotid endarterectomy, hypertension, hyperlipidemia, h/o TIA in April 2016, lumbar stenosis and GERD who presented to the ED on 12/11 with palpitations, dizziness, nausea and new onset A. fib. Patient first started noticing intermittent palpitations about 1 week ago when her sinusitis symptoms first began. She associates her palpitations with lightheadedness and nausea. Patient denies syncope, chest pain, shortness of breath. Patient A. fib with RVR upon arrival with a heart rate of 133, vital signs otherwise stable. Chest x-ray, head CT, and sinus CT showed no acute disease. EKG showed no ischemic changes. Initial labs significant for an elevated troponin of 0.097. New onset A. fib--patient is very labile. She was mostly in normal sinus rhythm with heart rate in the high 60s during my examination. However, when I sat her up to listen to her lungs, she then went into A. fib with heart rate in the high 90s, low 100s. After laying back down for a few minutes, she returned to normal sinus rhythm with heart rate again in the 60s -Admit to telemetry for cardiac monitoring -Consult cardiology. Patient's recent cardiac cath done by Dr. Foley -Start heparin drip. Patient will need long-term anticoagulation due to age, history of hypertension and history of TIA -Trend cardiac enzymes 3. Elevated troponin may be secondary to demand ischemia HTN--stable -Continue atenolol 25 mg PO qd and Maxzide 37.5/25 mg PO qd HLD -Continue rosuvastatin 10 mg PO qd Lumbar spinal stenosis -Continue gabapentin 300 mg PO TID GERD -Continue Nexium 40 mg PO qd DVT prophylaxis -Heparin drip -LINCOLN abrams and SCDs Code Status -Level I, FULL RESUSCITATION STATUS This chart was completed in part utilizing [employer] Speech Voice Recognition software. Attempts were made to minimize the grammatical errors, random word insertions, pronoun errors and incomplete sentences. Any formal questions or concerns about the content, text or information contained within the body of this dictation should be directly addressed to the provider for clarification. I agree with PA assessment and plan and have seen and examined pt myself Pulse very labile New onset afib Likely will need AC Cardiology consulted Trops mildly elevated/NSTEMI likely from elev pulse Cont rate control, heparin and admit to tele Pt asymptomatic at this time Level of Care Telemetry Resuscitation Status FULL RESUSCITATION VTE Prophylaxis VTE Risk Assessment Done? Y/N: Yes Risk Level: High Given or contraindicated: Other Anticoagulation (heparin drip), T.E.D. Stockings, SCD's
[2016-12-11] MEDS: GABAPENTIN 300 MG CAP PO SCH (20:06)
[2016-12-11] MEDS: CEROVITE ADV FORMULA TAB PO SCH (20:06)
[2016-12-11] MEDS: CALCIUM 600MG + VIT D 400 IU TAB PO SCH (20:06)
[2016-12-11] MEDS: HEPARIN 25,000 UNIT/500ML D5W 500 ML IV PRN (20:14)
[2016-12-11] MEDS ORDERED: NON-FORMULARY MEDICATION (Probiotic Product (Probiotic) 1 CAP) PO SCH (21:00)
[2016-12-11] MEDS ORDERED: [UNRECOGNIZED DRUG - OTHER] PO SCH (21:00)
[2016-12-11] MEDS ORDERED: ROSUVASTATIN CALCIUM 10 MG TAB PO SCH (21:00)
[2016-12-11] MEDS ORDERED: HYDROCORTISONE ACETATE 25 MG SUPP PR PRN (21:00)
--- NOTE | 2016-12-11 22:03 | EMERGENCY ROOM VISIT NOTE ---
History Report prepared by Ernesto: Sophia Shipman Under the Supervision of: Dr. Ildefonso Jarvis D.O. First contact with patient: 14:38 Chief Complaint: CARDIAC ASSESSMENT Stated Complaint: NEW ON SET A-FIB Nursing Triage Summary: patient presents to er via bls. patient went to pcp appointment today for a recheck of sinus infection. patient taken antibiotics for infection. for the past 3-5 days "I have felt my heart racing, off and on." patient found to be new onset afib. patient denies chest pains or sob. patient states as soon as I sit down these episodes leave. hx: heart cath nov 11. stroke april 2016, left partial masecotomy. History of Present Illness The patient is a 81 year old female who presents to the Emergency Room with complaints of persistent dizziness starting this morning. She states that the room is spinning and she is experiencing nausea. She has had a sinus infection which is causing a headache and pain in her jaw. She initially thought the dizziness was due to her sinus infection. She has weakness in her legs which is not new and due to her spinal stenosis. She denies any chest pain or heaviness. She has a history of TIA. She had a carotid endarterectomy. She was never found to have A fib before. Source of History: patient Onset: this morning Position: other (global) Quality: other (dizziness) Timing: other (persistent) Associated Symptoms: + headache, + nausea, + weakness (in legs), No chest pain Review of Systems See HPI for pertinent positives & negatives. A total of 10 systems reviewed and were otherwise negative. Past Medical & Surgical Medical Problems: (1) New onset a-fib (2) TIA (transient ischemic attack) Surgical Problems: (1) S/P carotid endarterectomy Family History Non contributory secondary to age. Social History Smoking Status: Never Smoker Marital Status: Occupation Status: retired Current/Historical Medications Scheduled Acetaminophen (Tylenol), 1,000 MG PO BID Ascorbic Acid (Ascorbic Acid), 500 MG PO QAM Aspirin (Aspirin Ec), 81 MG PO QAM Atenolol (Tenormin), 25 MG PO QPM B-Complex Vitamins (B Complex), 1 TAB PO QAM Calcium Carbonate-Vitamin D (Calcium + D), 1 TAB PO BID Cefuroxime Axetil (Cefuroxime Axetil), 1 TAB PO Q12 Coenzyme Q10 (Ubidecarenone) (Coq-10), 100 MG PO QAM Esomeprazole Magnesium (Nexium), 40 MG PO QAM Fexofenadine Hcl (Roberta Allergy), 180 MG PO QAM Fish Oil ([place]-3), 1 CAP PO QPM Gabapentin (Neurontin), 300 MG PO TID Ultchxyxgdi-Xdrhpqisclh-Dwxwha (Glucosamine & Chrondroiti), 1 TAB PO BID Multivitamin (Multivitamin), 1 TAB PO QAM Ocuvite Preservision (Ocuvite Preservision), 1 TAB PO BID Probiotic Product (Probiotic), 1 CAP PO QPM Rosuvastatin Calcium (Crestor), 10 MG PO QPM Triamcinolone Acetonide (Nasal (Nasacort Allergy 24Hr), 2 SPRAYS MANASA QAM Triamterene/Hctz (Triamterene/Hctz 37.5-25MG), 1 TAB PO QAM Scheduled PRN Hydrocortisone Acetate (Rectal (Anusol-Hc), 25 MG NM BID PRN for Hemorrhoids Sucralfate (Carafate), 10 ML PO QID PRN for prn Tramadol-Acetaminophen (Ultracet), 1 TAB PO Q4H PRN for Pain Allergies Coded Allergies: Levofloxacin (Unverified Allergy, Unknown, muscle and joint pain, 11/25/16) Tetanus Toxoid (Verified Allergy, Unknown, CHEST PAIN, RESTLESSNESS, ) Atorvastatin (Verified Adverse Reaction, Intermediate, ELEVATED OPK LEVEL PER FAMILY PRACTICE NOTES ON CHART, 11/25/16) Tetracycline (Verified Adverse Reaction, Unknown, ESOPHAGEAL EROSION, ) Physical Exam Vital Signs Date Time Temp Pulse Resp B/P Pulse Ox O2 Delivery O2 Flow Rate FiO2 12/11/16 16:30 98 20 112/68 96 Room Air 12/11/16 15:17 59 16 131/61 94 Room Air 12/11/16 15:10 68 16 124/54 97 Room Air 12/11/16 15:06 67 16 154/89 95 12/11/16 15:00 147 18 139/102 95 Room Air 12/11/16 14:59 133 20 139/102 97 Room Air 12/11/16 14:25 134 12/11/16 14:15 36.7 134 18 138/65 97 Room Air 12/11/16 14:15 97 Room Air 12/11/16 14:15 97 Room Air Physical Exam GENERAL: Patient is awake, alert, and in no acute distress. Patient is resting comfortably and showing no signs of anxiety EYES: The conjunctivae are clear. The pupils are round and reactive. EARS, NOSE, MOUTH AND THROAT: The nose is without any evidence of any deformity. Mucous membranes are moist tongue is midline NECK: The neck is nontender and supple. RESPIRATORY: Normal respiratory effort is noted there is no evidence of wheezing rhonchi or rales CARDIOVASCULAR: Tachycardic rate and irregular rhythm. No definite murmurs noted to auscultation. GASTROINTESTINAL: The abdomen is soft. Bowel sounds are present in all quadrants. Abdomen is nontender MUSCULOSKELETAL/EXTREMITIES: There is no evidence of gross deformity full range of motion is noted in the hips and shoulders SKIN: There is no obvious evidence of any rash. There are no petechiae, pallor or cyanosis noted. NEUROLOGIC: Patient is awake alert and oriented x3 strength is symmetric patellar reflexes are 2+ bilaterally Medical Decision & Procedures ER Provider Diagnostic Interpretation: X-ray results as stated below per interpretation by me and the radiologist. Radiology results as stated below per my review and radiologist interpretation: CHEST ONE VIEW PORTABLE CLINICAL HISTORY: Palpitations COMPARISON STUDY: No previous studies for comparison. FINDINGS: The heart is at the upper limits of normal in size. There is no failure. There is no focal pulmonary consolidation. There are no pleural effusions. There is minimal left basilar atelectasis.[ IMPRESSION: No active disease in the chest. Electronically signed by: Wood Geiger M.D. 12/11/2016 2:51 PM Dictated Date/Time: 12/11/2016 2:[address] DOSE: 850.01 mGy.cm HISTORY: Pain. Sinusitis. RIVERO and sinus pain, requested by PCP TECHNIQUE: Multiaxial CT images of the maxillofacial region were performed and reformatted in the coronal plane without the use of contrast. COMPARISON: None. FINDINGS: All major sinuses are clear. Ostiomeatal units are patent bilaterally. Moderate hypertrophic change nasal turbinates. Osseous structures are intact. Prior partial ethmoidectomy. IMPRESSION: All major sinuses are clear. 2. Ostiomeatal units are patent. 3. Hypertrophic change nasal turbinates. Electronically signed by: Darien Posada M.D. 12/11/2016 4:[address] SCAN OF THE BRAIN WITHOUT IV CONTRAST CLINICAL HISTORY: Headache. COMPARISON STUDY: MRI of the brain dated 04/23/2016. TECHNIQUE: Unenhanced axial CT scan of the brain is performed from the vertex to the skull base. FINDINGS: Brain parenchyma: There are age-related involutional changes noting mild subcortical and periventricular microangiopathic change. There is no hemorrhage, mass effect, or evidence of acute territorial ischemia by CT criteria. Amaya-white matter is preserved. No extra-axial fluid collection is seen. Ventricles, sulci, cisterns: Prominent secondary to involutional change. Intracranial vasculature: There is atherosclerotic calcification of the cavernous carotid and vertebral arteries. Calvarium: Unremarkable. Sinuses and mastoids: The visualized paranasal sinuses are clear. The mastoid air cells are well pneumatized. Orbits: The bony orbits are grossly intact. IMPRESSION: There is no hemorrhage, mass effect, or evidence of acute territorial ischemia by CT criteria. Electronically signed by: Francisco Cervantes M.D. 12/11/2016 4:22 PM Dictated Date/Time: 12/11/2016 4:21 PM Laboratory Results 12/11/16 14:58 Red Blood Count 4.82, Mean Corpuscular Volume 92.9, Mean Corpuscular Hemoglobin 31.3, Mean Corpuscular Hemoglobin Concent 33.7, Mean Platelet Volume 10.5, Neutrophils (%) (Auto) 64.2, Lymphocytes (%) (Auto) 27.1, Monocytes (%) (Auto) 7.0, Eosinophils (%) (Auto) 1.0, Basophils (%) (Auto) 0.6, Neutrophils # (Auto) 4.48, Lymphocytes # (Auto) 1.89, Monocytes # (Auto) 0.49, Eosinophils # (Auto) 0.07, Basophils # (Auto) 0.04 12/11/16 14:58 Test 12/11/16 14:58 12/11/16 16:01 White Blood Count 6.98 K/uL (4.8-10.8) Red Blood Count 4.82 M/uL (4.2-5.4) Hemoglobin 15.1 g/dL (12.0-16.0) Hematocrit 44.8 % (37-47) Mean Corpuscular Volume 92.9 fL (80-100) Mean Corpuscular Hemoglobin 31.3 pg (25-34) Mean Corpuscular Hemoglobin Concent 33.7 g/dl (32-36) Platelet Count 267 K/uL (130-400) Mean Platelet Volume 10.5 fL (7.4-10.4) Neutrophils (%) (Auto) 64.2 % Lymphocytes (%) (Auto) 27.1 % Monocytes (%) (Auto) 7.0 % Eosinophils (%) (Auto) 1.0 % Basophils (%) (Auto) 0.6 % Neutrophils # (Auto) 4.48 K/uL (1.4-6.5) Lymphocytes # (Auto) 1.89 K/uL (1.2-3.4) Monocytes # (Auto) 0.49 K/uL (0.11-0.59) Eosinophils # (Auto) 0.07 K/uL (0-0.5) Basophils # (Auto) 0.04 K/uL (0-0.2) RDW Standard Deviation 41.6 fL (36.4-46.3) RDW Coefficient of Variation 12.2 % (11.5-14.5) Immature Granulocyte % (Auto) 0.1 % Immature Granulocyte # (Auto) 0.01 K/uL (0.00-0.02) Prothrombin Time 11.6 SECONDS (9.0-12.0) Prothromb Time International Ratio 1.1 (0.9-1.1) Activated Partial Thromboplast Time 29.5 SECONDS (21.0-31.0) Partial Thromboplastin Ratio 1.1 Anion Gap 10.0 mmol/L (3-11) Est Creatinine Clear Calc Drug Dose 42.1 ml/min Estimated GFR () 54.5 Estimated GFR (Non- 47.0 BUN/Creatinine Ratio 23.0 (10-20) Calcium Level 10.2 mg/dl (8.5-10.1) Magnesium Level 2.2 mg/dl (1.8-2.4) Total Bilirubin 0.4 mg/dl (0.2-1) Direct Bilirubin 0.1 mg/dl (0-0.2) Aspartate Amino Transf (AST/SGOT) 34 U/L (15-37) Alanine Aminotransferase (ALT/SGPT) 20 U/L (12-78) Alkaline Phosphatase 81 U/L (45-117) Total Creatine Kinase 168 U/L (26-192) Creatine Kinase MB 2.5 ng/ml (0.5-3.6) Creatine Kinase MB Ratio 1.5 (0-3.0) Troponin I 0.097 ng/ml (0-0.045) Total Protein 8.8 gm/dl (6.4-8.2) Albumin 4.3 gm/dl (3.4-5.0) Lipase 160 U/L (73-393) Thyroid Stimulating Hormone (TSH) 3.240 uIu/ml (0.300-4.500) Free Thyroxine 1.11 ng/dl (0.80-1.60) Urine Color YELLOW Urine Appearance CLEAR (CLEAR) Urine pH 8.0 (4.5-7.5) Urine Specific [place] 1.007 (1.000-1.030) Urine Protein NEG (NEG) Urine Glucose (UA) NEG (NEG) Urine Ketones NEG (NEG) Urine Occult Blood NEG (NEG) Urine Nitrite NEG (NEG) Urine Bilirubin NEG (NEG) Urine Urobilinogen NEG (NEG) Urine Leukocyte Esterase NEG (NEG) Laboratory results per my review. Medications Administered Medications (Trade) Dose Ordered Sig/Tanner Route Start Time Stop Time Status Last Admin Dose Admin Sodium Chloride (Nss 1000ml) 1,000 ml @ 999 mls/hr Q1H1M STAT IV 12/11/16 14:51 12/11/16 15:51 DC 12/11/16 14:51 999 MLS/HR Diltiazem HCl (Cardizem Inj) 20 mg NOW STAT IV 12/11/16 14:51 12/11/16 14:52 DC 12/11/16 15:01 20 MG ECG Indication: palpitations Rate (beats per minute): 62 Rhythm: normal sinus Findings: RBBB (RBBB pattern noted), no ectopy Comparison ECG Date: 09/25/2009 Change: RBBB is new. Repeat EKG - AFib with RVR, inferior and lateral ST depression now noted. New compared to earlier tracing. ED Course 1444: The patient was evaluated in room C8. A complete history and physical examination were performed. 1451: Cardizem Inj 20 mg IV, NSS 1000 ml @ 999 mls/hr IV. 1638: I discussed the patient's case with Dr. Bowman, Kavita - cardiology. The patient will be evaluated for further management. 1654: Upon reevaluation, the patient is resting comfortably. I discussed results and treatment plan with her. She verbalizes agreement and understanding. The patient will be evaluated for further management and care. Medical Decision Prior records/ancillary studies reviewed. Triage Nursing notes reviewed. The patient's history was concerning for palpitations. Differential diagnosis: Etiologies such as premature contractions, electrolyte abnormality, cardiac dysrhythmia, thyroid dysfunction, pulmonary embolism, infection, gastrointestinal, as well as others were entertained. The patient is an 81-year-old female who presented to the emergency department for an evaluation palpitations. The patient had a cryptogenic stroke last fall. She had a follow-up which included cardiovascular monitoring was not found have atrial fibrillation. The patient presented to her primary care physician today because of palpitations and discomfort in her face which she thought was consistent with sinus infection. She was found to be in atrial fibrillation. The patient is treated with Cardizem and IV fluids in the emergency department. On subsequent reevaluation she was significantly improved. I discussed the patient's laboratory and radiographic studies with her. I also discussed her case with the on-call [facility] hospitalist group. They've agreed to evaluate the patient in the emergency department for further management and disposition. Consults Time Called: 1630 Consulting Physician: Dr Aguila Returned Call: 1638 I discussed the patient's case with him. The patient will be evaluated for further management. Impression Primary Impression: Atrial fibrillation with RVR Additional Impressions: Elevated troponin Palpitations Scribe Attestation The scribe's documentation has been prepared under my direction and personally reviewed by me in its entirety. I confirm that the note above accurately reflects all work, treatment, procedures, and medical decision making performed by me. Departure Information Dispostion Being Evaluated By Hospitalist Referrals No Doctor, Assigned (PCP) Patient Instructions My [facility] Health Problem Qualifiers
[2016-12-11 23:44] VITALS: BP 103/53; PULSE 57; TEMP 36.8; O2SAT 95
[2016-12-11 23:50] LABS: CKMB/CK RATIO 1.7 (0-3.0)
[2016-12-12] VITALS (8 sets, daily range): BP systolic 109–123; BP diastolic 47–64; PULSE 52–64; TEMP 36.9–37; O2SAT 94–96
[2016-12-12 03:03] LABS: PARTIAL THROMBOPLASTIN RATIO 2.4
[2016-12-12] MEDS: HEPARIN 25,000 UNIT/500ML D5W 500 ML IV PRN (03:49)
[2016-12-12 07:17] LABS: HEMATOCRIT 39.8 % (37-47); MEAN CELL VOLUME 94.5 fL (80-100); MEAN CORPUSCULAR HEMOGLOBIN 31.6 pg (25-34); MEAN CORPUSCULAR HGB CONC 33.4 g/dl (32-36); MEAN PLATELET VOLUME 10.6 fL (7.4-10.4); PLATELET COUNT 236 K/uL (130-400); RED BLOOD COUNT 4.21 M/uL (4.2-5.4); WHITE BLOOD COUNT 4.62 K/uL (4.8-10.8)
[2016-12-12] MEDS: CALCIUM 600MG + VIT D 400 IU TAB PO SCH (07:44)
[2016-12-12] MEDS: GABAPENTIN 300 MG CAP PO SCH ×2 (07:46→13:44)
[2016-12-12] MEDS: CEROVITE ADV FORMULA TAB PO SCH (07:46)
[2016-12-12 07:51] LABS: BUN/CREATININE RATIO 23.3 (10-20); CALCIUM 9.6 mg/dl (8.5-10.1); CREATININE 0.99 mg/dl (0.60-1.20)
[2016-12-12 07:59] LABS: CKMB/CK RATIO 1.6 (0-3.0)
[2016-12-12 08:51] LABS: PARTIAL THROMBOPLASTIN RATIO 3.6
[2016-12-12] MEDS ORDERED: ASPIRIN 81 MG ECTAB PO SCH (09:00)
[2016-12-12] MEDS ORDERED: VITAMIN B COMPLEX TAB PO SCH (09:00)
[2016-12-12] MEDS ORDERED: ASCORBIC ACID 500 MG TAB PO SCH (09:00)
[2016-12-12] MEDS ORDERED: TRIAMTERENE/HCTZ 37.5/25MG TAB PO SCH (09:00)
[2016-12-12] MEDS ORDERED: FEXOFENADINE HCL 180 MG TAB PO SCH (09:00)
[2016-12-12] MEDS ORDERED: MULTIVITAMIN TAB PO SCH (09:00)
[2016-12-12] MEDS ORDERED: PANTOprazole SOD 40 MG TAB PO SCH (09:00)
[2016-12-12] MEDS ORDERED: NON-FORMULARY MEDICATION (Coenzyme Q10 (Ubidecarenone) (Coq-10) 100 MG) PO SCH (09:00)
[2016-12-12] MEDS ORDERED: TRIAMCINOLONE ACET NASAL SPRAY 10.8ML BTL NAE SCH (09:00)
--- NOTE | 2016-12-12 11:10 | CARDIOLOGY CONSULTATION ---
DATE OF CONSULTATION: 12/12/2016 REQUESTING: Do Cuenca PA-C. TRACK SUPERVISOR: Osorio Small DO, [facility] for Dr. Bharath Foley who is the patient's primary passenger flagman. Dear Ms. Cuenca, Thank you for requesting cardiology consultation on Samira with regard to her symptomatic atrial fibrillation. As you know, she is a very pleasant 81-year-old female who has been sick with a sinus infection over the last week to 10 days. She was placed on antibiotics earlier this past week. She has been using the Neti Pot. She has not used any Sudafed or Afrin nasal spray or other stimulants. She was using antihistamines without the decongestant. On Wednesday, she had palpitations, and with those palpitations, she had some nauseousness and some dizziness. They then abated yesterday. She had additional palpitations and felt her heart racing up into her neck. She had a friend drive her to her family provider where she was found to be in atrial fibrillation with a rapid ventricular response. 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 She feels well now and she feels back to her baseline. I did question her as to whether she has had palpitations in the past or anything like this and she did have a TIA in 04/2016. She denies feeling palpitations or fluttering or feeling her heart racing in the past at all. She notes she has never had anything like she felt on Wednesday and Wednesday. Currently, she denies any chest pain, chest pressure, chest heaviness. She has a fullness in her head and some very mild lightheadedness. She denies any presyncope, syncope, lower extremity edema, PND, orthopnea. Her appetite and weight are stable. She denies any bleeding, bruising, dark stools, black stools. She does have some postnasal drip. The rest of review of systems otherwise negative. PAST MEDICAL HISTORY: 1. TIA 04/2016. 2. History of cardiac catheterization 10/2016 with mild nonobstructive coronary disease involving the LAD, OM3, and the RCA. 3. Moderate aortic stenosis. 4. Preserved left ventricular systolic function. 5. Hypertension. 6. Hyperlipidemia. 7. Carotid stenosis, status post right carotid endarterectomy 04/[address] [facility]. 8. GERD. FAMILY HISTORY: Positive for diabetes, hypertension, pancreatic cancer, and stroke. SOCIAL HISTORY: Lifetime nonsmoker. She is . 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 ALLERGIES: TO LEVOFLOXACIN, TETANUS, ATORVASTATIN, AND TETRACYCLINE. PHYSICAL EXAMINATION: GENERAL: She is awake, alert and oriented x3. She looks younger than her stated age. VITAL SIGNS: Her heart rate is 57, her respirations are 18, her blood pressure 109/56, her pulse ox is 95% on room air. HEENNT: 2+ carotid upstrokes. No evidence of carotid bruits. Her jugular venous pressure appeared normal. Her sclerae are anicteric. Her hearing is normal. LUNGS: Clear to auscultation bilaterally. No rales, rhonchi or wheezing. HEART: Regular rate and rhythm. There is a crescendo-decrescendo murmur at the right sternal border, which is mid peaking. ABDOMEN: Soft, nontender, nondistended. Positive bowel sounds. EXTREMITIES: No clubbing, cyanosis or edema. PSYCHIATRIC: Affect appeared appropriate. NEUROLOGIC: Grossly nonfocal. DIAGNOSTIC STUDIES: Echo 09/25/2016, normal LV size and function, EF 65-70%, mild left ventricular hypertrophy, moderate aortic stenosis, moderate pulmonary hypertension. EKG this morning, sinus bradycardia, biatrial enlargement, incomplete right bundle-branch block, left posterior fascicular block. EKG upon admission, atrial fibrillation with a rapid ventricular response, right bundle-branch block, ST-T changes, consider anterolateral ischemia, the rate is [address] of her head is negative for hemorrhage or mass effect or acute stroke. LABORATORY STUDIES: Hemoglobin of 13.3, platelet count of 236, BUN 23, creatinine 0.99. Troponin is 0.091. Sodium 141, potassium 4.0, chloride 105, CO2 of 28. Her PTT is 93.8 on heparin. IMPRESSION: 1. Symptomatic paroxysmal atrial fibrillation with spontaneous conversion back to sinus rhythm. 2. Relative bradycardia on low-dose beta blockers when in sinus rhythm. 3. Elevated CHADS2-VASc score of 5, that being her age, her gender, hypertension and vascular disease. 4. Moderate aortic stenosis. 5. Mild epicardial coronary artery disease as discussed above based on a catheterization of 10/2016. 6. Preserved left ventricular size and function. 7. TIA 04/2017, status post right carotid endarterectomy with unaware of prior palpitations in the past. The challenge is that in sinus rhythm, her heart rate is relatively slow and only 25 mg of atenolol and there is not a lot of room to increase her AV dm blockers. This may just be related to her acute illness, although given her elevated CHADS2-VASc score, she should be on anticoagulation and I recommended apixaban 5 mg b.i.d. Her heparin can be held now and apixaban can be started in about 3 hours as she will be therapeutic 2 hours after taking it. The long-term question is going to be whether she can maintain sinus rhythm outside of her illness, and if cannot, she may need antiarrhythmic therapy. Given the fact she has coronary artery disease, flecainide is contraindicated. Multaq would be an option, although it is quite expensive, and that combination with apixaban might be too expensive for her. The other option would be amiodarone or sotalol. At this point, I will continue her current medical therapy. She can follow up with Dr. Foley as an outpatient. I did discuss with her that with apixaban, there is a 31% reduction in bleeding, 21% reduction in all caused stroke, and 11% reduction in all caused compared to Coumadin. Thank you for allowing us to participate in her care. Addendum: Xarelto was a lower cost and she was d/c ed on this instead of apixaban. JAYDEN
[2016-12-12] MEDS ORDERED: APIXABAN 2.5 MG TAB PO SCH (13:00)
--- NOTE | 2016-12-12 16:37 | Discharge Instructions ---
Discharge Instructions Date of Service Dec 12, 2016. Admission Reason for Admission: New Onset A-Fib Discharge Discharge Diagnosis / Problem: New on set A-fib ( iregular heart rate) Discharge Goals Goal(s): Improve function Activity Recommendations Activity Limitations: per Instructions/Follow-up section (advance as tolerated) Lifting Limitations: none Exercise/Sports Limitations: as tolerated May Resume Sexual Activity: when tolerated Shower/Bathe: no limitations Driving or Machine Use: resume 1 day after discharge none . Instructions / Follow-Up Instructions / Follow-Up Follow with PCP in 1 week, Pt was started on Xarelto for anticoagulation for non valvular A-fib. Pt need to repeat BMP in 1 week. Current Hospital Diet Patient's current hospital diet: AHA Diet (Heart Healthy) Discharge Diet Recommended Diet: AHA Diet (Heart Healthy), Low Sodium Diet (2gm Na) Fluid Restriction: None Pending Studies Studies pending at discharge: no Laboratory Results Last Resulted CBC 12/12/16 07:00 Last Resulted BMP 12/12/16 07:00 Medical Emergencies . Who to Call and When: Medical Emergencies: If at any time you feel your situation is an emergency, please call 911 immediately. . Non-Emergent Contact Non-Emergency issues call your: Primary Care Provider Call Non-Emergent contact if: you have a fever, temperature is above 100.5, you have any medication questions . . "Provider Documentation" section prepared by Jan Vega. VTE Core Measure Inpt VTE Proph given/why not?: Other Anticoagulation (heparin drip), T.E.D. Stockings, SCD's [place] Drug Monitoring Program Drug Monitoring Findings: did not performed.
--- NOTE | 2016-12-12 20:14 | Discharge Summary ---
Discharge Summary Date of Service Dec 12, 2016. Discharge Summary Admission Date: Dec 11, 2016 at 17:47 Discharge Date: Dec 12, 2016 Discharge Disposition: Home Principal Diagnosis: Non valvular A-fib Problems/Secondary Diagnoses: 1) HTN 2) DLP 3) TIA 4) Lumbar spinal stenosis 5) GERD Immunizations: Have You Had Influenza Vaccine: Yes History of Tetanus Vaccine?: Yes History of Pneumococcal: Yes History of Hepatitis B Vaccine: Yes Procedures: none. Consultations: Cardiology Consult. Medication Reconciliation Continued Medications: Acetaminophen (Tylenol) 500 Mg Tab 1000 MG PO BID, TAB Ascorbic Acid (Ascorbic Acid) 500 Mg Tab 500 MG PO QAM, TAB Aspirin (Aspirin Ec) 81 Mg Tab 81 MG PO QAM Atenolol (Tenormin) 25 Mg Tab 25 MG PO QPM, TAB B-Complex Vitamins (B Complex) 1 Cap Cap 1 TAB PO QAM Calcium Carbonate-Vitamin D (Calcium + D) 1 Tab Tab 1 TAB PO BID Coenzyme Q10 (Ubidecarenone) (Coq-10) 100 Mg Cap 100 MG PO QAM Esomeprazole Magnesium (Nexium) 40 Mg Capcr 40 MG PO QAM, CAP Fexofenadine Hcl (Roberta Allergy) 180 Mg Tab 180 MG PO QAM for 30 Days, #30 TAB 2 Refills Fish Oil ([place]-3) 1 Ea Cap 1 CAP PO QPM, CAP Gabapentin (Neurontin) 300 Mg Cap 300 MG PO TID, CAP Qaxwxhcnpib-Sfpvoytpnam-Qvphch (Glucosamine & Chrondroiti) 1 Pow Pow 1 TAB PO BID Hydrocortisone Acetate (Rectal (Anusol-Hc) 25 Mg Sup 25 MG MT BID PRN for Hemorrhoids, #7 SUP Multivitamin (Multivitamin) Tab 1 TAB PO QAM, TAB Ocuvite Preservision (Ocuvite Preservision) 1 Tab Tab 1 TAB PO BID, TAB Probiotic Product (Probiotic) 1 Cap Cap 1 CAP PO QPM Rosuvastatin Calcium (Crestor) 10 Mg Tab 10 MG PO QPM, TAB Sucralfate (Carafate) 1 Gm/10 Ml Monica 10 ML PO QID PRN for prn for 30 Days, #1200 ML Tramadol-Acetaminophen (Ultracet) 1 Tab Tab 1 TAB PO Q4H PRN for Pain for 10 Days, #60 TAB Triamcinolone Acetonide (Nasal (Nasacort Allergy 24Hr) 55 Mcg/Act Spr 2 SPRAYS MANASA QAM Triamterene/Hctz (Triamterene/Hctz 37.5-25MG) 1 Tab Tab 1 TAB PO QAM, TAB Discontinued Medications: Cefuroxime Axetil (Cefuroxime Axetil) 500 Mg Tab 1 TAB PO Q12 for 7 Days, #14 TAB Discharge Exam Review of Systems: Constitutional: No chills, No fever, No sweats Respiratory: No cough, No dyspnea at rest, No dyspnea on exertion, No shortness of breath, No sputum, No wheezing Cardiovascular: No chest pain, No edema, No palpitations Abdomen: No constipation, No diarrhea, No nausea, No pain, No vomiting Musculoskeletal: No calf pain, No joint pain, No muscle pain, No swelling Genitourinary - Female: No urinary frequency, No urinary incontinence Neurologic: No memory loss, No numbness/tingling Psychiatric: No depression symptoms Endocrine: No fatigue Hematologic / Lymphatic: No abnormal bleeding/bruising Integumentary: No rash Physical Exam: General Appearance: WD/WN, no apparent distress Eyes: normal inspection, EOMI Neck: supple, no adenopathy, thyroid normal, no JVD Respiratory/Chest: chest non-tender, lungs clear, normal breath sounds, no respiratory distress Cardiovascular: regular rate, rhythm, no edema, no JVD, no murmur Abdomen / GI: normal bowel sounds, soft Neurologic/Psychiatric: 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 fib. Patient first started noticing intermittent palpitations about 1 week ago when her sinusitis symptoms first began. She associates her palpitations with lightheadedness and nausea. Patient denies syncope, chest pain, shortness of breath. Patient A. fib with RVR upon arrival with a heart rate of 133, vital signs otherwise stable. Chest x-ray, head CT, and sinus CT showed no acute disease. EKG showed no ischemic changes. Initial labs significant for an elevated troponin of 0.097. 1) New onset A. fib nonvalvular--Patient is stable.She was mostly in normal sinus rhythm with heart rate in the high 60s during hospitalization. Pt was seen by a cardiology and pt ASAEL vasc 2 score of 5, decision was made to start a anticoagulation, pt was prescribed by cardiology reji , however because of no insurance coverage , we switch to Xarelto 15mg po daily, when I sat her up to listen to her lungs, she then went into A. fib with heart rate in the high 90s, low 100s. After laying back down for a few minutes, she returned to normal sinus rhythm with heart rate again in the 60s. Patient's recent cardiac cath done by Dr. Foley. Elevated troponin may be secondary to demand ischemia. However troponin trended down.Pt IV heparin D/C, and sent home on Xarelto to follow up with the PCP with in week as well as written Rx of BMP after a week. Pt has a history of stage 3 kidney disease with a GFR of 53, Pt dose was adjusted based on renal function. HTN--stable -Continue atenolol 25 mg PO qd and Maxzide 37.5/25 mg PO qd HLD -Continue rosuvastatin 10 mg PO qd Lumbar spinal stenosis -Continue gabapentin 300 mg PO TID GERD -Continue Nexium 40 mg PO qd DVT prophylaxis -Heparin drip -LINCOLN hose and SCDs Total Time Spent: Greater than 30 minutes Total of more than 40 min spend in patient discharge. This includes examination of the patient, discharge planning, medication reconciliation, and communication with other providers, case management.along with pharmacy. Discharge Instructions Discharge Instructions Date of Service Dec 12, 2016. Admission Reason for Admission: New Onset A-Fib Discharge Discharge Diagnosis / Problem: New on set A-fib ( iregular heart rate) Discharge Goals Goal(s): Improve function Activity Recommendations Activity Limitations: per Instructions/Follow-up section (advance as tolerated) Lifting Limitations: none Exercise/Sports Limitations: as tolerated May Resume Sexual Activity: when tolerated Shower/Bathe: no limitations Driving or Machine Use: resume 1 day after discharge none . Instructions / Follow-Up Instructions / Follow-Up Follow with PCP in 1 week, Pt was started on Xarelto for anticoagulation for non valvular A-fib. Pt need to repeat BMP in 1 week. Current Hospital Diet Patient's current hospital diet: AHA Diet (Heart Healthy) Discharge Diet Recommended Diet: AHA Diet (Heart Healthy), Low Sodium Diet (2gm Na) Fluid Restriction: None Medical Emergencies . Who to Call and When: Medical Emergencies: If at any time you feel your situation is an emergency, please call 911 immediately. . Non-Emergent Contact Non-Emergency issues call your: Primary Care Provider Call Non-Emergent contact if: you have a fever, temperature is above 100.5, you have any medication questions . . "Provider Documentation" section prepared by Jan Vega. Follow-Up Follow with PCP in 1 week.
[2017-04-21] MEDS ORDERED: RIVA1TAB4 PO (09:06)
[2017-04-21] MEDS ORDERED: LACT10CA3 PO (09:06)
[2017-04-21] MEDS ORDERED: TRAMTAB5 PO (09:06)
[2017-04-21] MEDS ORDERED: LISI5TAB PO (09:06)
[2017-04-21] MEDS ORDERED: ARTIDRO2 OPB (09:21)
[2017-06-09] MEDS ORDERED: ASPI-428 PO (11:56)
[2017-06-09] MEDS ORDERED: [UNRECOGNIZED DRUG - CODE] VAGRING (11:56)
== END 2016-12-12 17:39 | disposition home or self-care (01) | DRG 310 ==
LOC: ENRESERVTM → ENRESERVDT → EDBD 14:13 → C.EDC 14:14 → C.2E 17:47
PROVIDERS: ADMIT Hospitalist; ATTEND Hospitalist
DX: I48.0 Paroxysmal atrial fibrillation (principal); M48.06 Spinal stenosis, lumbar region; I10 Essential (primary) hypertension; K21.9 Gastro-esophageal reflux disease without esophagitis; Z86.73 Personal history of transient ischemic attack (TIA), and cerebral infarction without residual deficits; I25.10 Atherosclerotic heart disease of native coronary artery without angina pectoris; Z85.3 Personal history of malignant neoplasm of breast; Z82.49 Family history of ischemic heart disease and other diseases of the circulatory system; Z82.3 Family history of stroke; Z83.3 Family history of diabetes mellitus; Z80.0 Family history of malignant neoplasm of digestive organs; E78.5 Hyperlipidemia, unspecified; I35.0 Nonrheumatic aortic (valve) stenosis

== ENCOUNTER → 2016-12-15 | Outpatient (CLI) | payer BC ==
[~2016-12-15] MED LIST changes: +ACET-24 PO; +ARTIDRO2 OPB; +ASPI-428 PO; +FRRG PO; +LACT10CA3 PO; +LISI5TAB PO; +RIVA1TAB4 PO; +TRAMTAB5 PO; +ULT50X PO; +[UNRECOGNIZED DRUG - CODE] VAGRING
== END | disposition home or self-care (01) ==
LOC: C.LABSPEC 12:55
PROVIDERS: ATTEND Family Medicine
DX: K92.1 Melena (principal)

== ENCOUNTER → 2016-12-22 | Outpatient (CLI) | payer BC ==
[2016-12-22 18:01] LABS: BASO % 0.8 %; BASO ABS # 0.04 K/uL (0-0.2); BLOOD UREA NITROGEN 22 mg/dl (7-18); BUN/CREATININE RATIO 21.8 (10-20); CALCIUM 9.5 mg/dl (8.5-10.1); CARBON DIOXIDE 32 mmol/L (21-32); CHLORIDE 108 mmol/L (98-107); COMPLETE YES; EOS % 2.1 %; GLUCOSE 96 mg/dl (70-99); HEMATOCRIT 39.4 % (37-47); IG% 0.2 %; LYMPH % 28.6 %; LYMPH ABS # 1.39 K/uL (1.2-3.4); MEAN CELL VOLUME 95.6 fL (80-100); MEAN CORPUSCULAR HEMOGLOBIN 31.8 pg (25-34); MEAN CORPUSCULAR HGB CONC 33.2 g/dl (32-36); MEAN PLATELET VOLUME 11.8 fL (7.4-10.4); MONO % 11.5 %; NEUT % 56.8 %; PLATELET COUNT 185 K/uL (130-400); POTASSIUM 4.2 mmol/L (3.5-5.1); RED BLOOD COUNT 4.12 M/uL (4.2-5.4); SODIUM 145 mmol/L (136-145); WHITE BLOOD COUNT 4.86 K/uL (4.8-10.8)
[2016-12-22 18:02] LABS: PHOSPHORUS 3.5 mg/dl (2.5-4.9)
== END | disposition home or self-care (01) ==
LOC: C.LABMFLN 11:11
PROVIDERS: ATTEND Family Medicine
DX: I48.91 Unspecified atrial fibrillation (principal)

== ENCOUNTER → 2017-02-23 | Outpatient (CLI) | payer BC ==
[2017-02-23 18:09] LABS: BASO % 0.8 %; BASO ABS # 0.04 K/uL (0-0.2); COMPLETE YES; HEMATOCRIT 41.8 % (37-47); IG% 0.2 %; LYMPH % 27.1 %; MEAN CELL VOLUME 97.7 fL (80-100); MEAN CORPUSCULAR HEMOGLOBIN 31.1 pg (25-34); MEAN CORPUSCULAR HGB CONC 31.8 g/dl (32-36); MEAN PLATELET VOLUME 11.2 fL (7.4-10.4); NEUT % 59.9 %; PLATELET COUNT 215 K/uL (130-400); RED BLOOD COUNT 4.28 M/uL (4.2-5.4)
[2017-02-23 18:15] LABS: ALT/SGPT 20 U/L (12-78); AST/SGOT 25 U/L (15-37); BLOOD UREA NITROGEN 21 mg/dl (7-18); BUN/CREATININE RATIO 18.8 (10-20); CALCIUM 9.5 mg/dl (8.5-10.1); CARBON DIOXIDE 32 mmol/L (21-32); CHLORIDE 105 mmol/L (98-107); GLUCOSE 95 mg/dl (70-99); MAGNESIUM 2.3 mg/dl (1.8-2.4); POTASSIUM 4.3 mmol/L (3.5-5.1); SODIUM 143 mmol/L (136-145)
[2017-02-23 18:21] LABS: ALB/GLOB RATIO 1.1 (0.9-2); ALKALINE PHOSPHATASE 67 U/L (45-117); CHOLESTEROL 199 mg/dl (0-200); HDL CHOLESTEROL 66 mg/dl; LDL CHOLESTEROL CALCULATED 106 mg/dl; TRIGLYCERIDES 137 mg/dl (0-150); VERY LOW DENSITY LIPOPROT CALC 27 mg/dl
== END | disposition home or self-care (01) ==
LOC: C.LABMFLN 13:48
PROVIDERS: ATTEND Family Medicine
DX: I10 Essential (primary) hypertension (principal); E78.00 Pure hypercholesterolemia, unspecified; R25.2 Cramp and spasm

== ENCOUNTER → 2017-04-30 | Day surgery (SDC) | payer BC ==
[2017-04-21 09:11] VITALS: Ht 165.1 cm; Wt 77.3 kg
[~2017-04-30] VITALS: Ht 165.1 cm; Wt 77.3 kg
[~2017-04-30] MED LIST changes: -ACET-24 PO; -ASCO500T16 PO; -FRRG PO; +LIDOCAINE HCL 2% 2 ML VIAL (20MG/ML) ONE; -MISCCAP80 PO; +PROPOFOL IV EMULSION 10 MG/ML 20 ML VIAL IV ONE; -TRAM37.52 PO; -ULT50X PO
--- NOTE | 2017-04-30 14:13 | Endo History and Physical ---
History & Physical Date of Service: Apr 30, 2017. Chief Complaint: DYSPHAGIA, DIARRHE/ LEFT QUAD ABD PAIN Referring Physician: DR. WATSON History of Present Illness For EGD and colonoscopy Past Surgical History Hx Cardiac Surgery: Yes (HEART CATH X2, NO STENTS; CARDIOVERSION (MEDICATION)) Hx Internal Defibrillator: No Hx Pacemaker: No Hx Abdominal Surgery: Yes (QUINTIN BSO, APPY, ALFRED) Hx of Implantable Prosthesis: No Hx Post-Op Nausea and Vomiting: No Hx Cancer Surgery: Yes (LT BREAST LUMPECTOMY) Hx Thoracic Surgery: No Hx Orthopedic: Yes (LT TKA) Hx Urinary Tract Surgery: No Family History None Social History Smoking Status: Never Smoker Hx Substance Use: No Hx Alcohol Use: No Allergies Coded Allergies: Levofloxacin (Verified Allergy, Unknown, muscle and joint pain, 04/30/17) Tetanus Toxoid (Verified Allergy, Unknown, CHEST PAIN, RESTLESSNESS, ) Atorvastatin (Verified Adverse Reaction, Intermediate, ELEVATED OPK LEVEL PER FAMILY PRACTICE NOTES ON CHART, 04/30/17) Tetracycline (Verified Adverse Reaction, Unknown, ESOPHAGEAL EROSION, 04/30) Current Medications Reported Home Medications Medications Dose Route/Sig Max Daily Dose Days Date Category Soothe Xp (Artificial Tear Solution) 1 Wily Wily 1 Drop OPB UD PRN 04/21/17 Reported Ultracet (Tramadol/Acetaminophen) 37.5 Mg/325 Mg Tab 1 Tab PO TID PRN 04/21/17 Reported Culturelle (Lactobacillus-Inulin) 1 Cap Cap 1 Cap PO QPM 04/21/17 Reported Xarelto (Rivaroxaban) 20 Mg Tab 20 Mg PO QPM 04/21/17 Reported Prinivil (Lisinopril) 5 Mg Tab 5 Mg PO QAM 04/21/17 Reported Triamterene/Hctz 37.5-25MG (Triamterene/HCTZ) 1 Tab Tab 1 Tab PO QAM 11/25/16 Reported Calcium + D (Calcium Carbonate-Vitamin D) 1 Tab Tab 1 Tab PO QAM 11/25/16 Reported Carafate (Sucralfate) 1 Gm/10 Ml Monica 10 Ml PO QID 11/25/16 Reported Anusol-Hc (Hydrocortisone Acetate (Rectal) 25 Mg Sup 25 Mg MT BID PRN 11/25/16 Reported Neurontin (Gabapentin) 300 Mg Cap 300 Mg PO TID 11/11/16 Reported Tenormin (Atenolol) 25 Mg Tab 25 Mg PO QPM 11/11/16 Reported Crestor (Rosuvastatin Calcium) 10 Mg Tab 10 Mg PO QAM 11/11/16 Reported Nexium (Esomeprazole Magnesium) 40 Mg Capcr 40 Mg PO QAM 11/11/16 Reported Aspirin Ec (Aspirin) 81 Mg Tab 81 Mg PO QAM 11/11/16 Reported Nasacort Allergy 24Hr (Triamcinolone Acetonide (Nasal) 55 Mcg/Act Spr 2 Sprays MANASA QAM PRN 11/11/16 Reported Roberta Allergy (Fexofenadine Hcl) 180 Mg Tab 180 Mg PO QAM 11/11/16 Reported Tylenol (Acetaminophen) 500 Mg Tab 1,000 Mg PO BID PRN 11/11/16 Reported Ocuvite Preservision (Multivitamins/Minerals) 1 Tab Tab 1 Tab PO QAM 11/11/16 Reported Multivitamin (Multivitamins) Tab 1 Tab PO BID 11/11/16 Reported Glucosamine & Chrondroiti (Tcapkxunpkh-Cudvgphmvpg-Roehhg) 1 Pow Pow 1 Tab PO BID 11/11/16 Reported [place]-3 (Fish Oil) 1 Ea Cap 1 Cap PO QPM 11/11/16 Reported Coq-10 (Coenzyme Q10 (Ubidecarenone)) 100 Mg Cap 100 Mg PO QAM 11/11/16 Reported B Complex (B-Complex Vitamins) 1 Cap Cap 1 Tab PO QAM 11/11/16 Reported Vital Signs Weight (Kilograms): 77.27 Height (Feet): 5 Height (Inches): 5 Date Time Temp Pulse Resp B/P (MAP) Pulse Ox O2 Delivery O2 Flow Rate FiO2 04/30/17 13:53 36.7 72 18 151/62 (91) 96 Room Air Physical Exam General Appearance: WD/WN Respiratory/Chest: Respiratory effort: no dyspnea Cardiovascular: Heart Auscultation: RRR Abdomen: Inspection & Palpation: soft (Dysphagia, diarrhea for EGD and colonoscopy) Assessment and Plan Dysphagia, diarrhea for EGD and colonoscopy
--- NOTE | 2017-04-30 14:49 | Discharge Instructions ---
Endoscopy Patient Instructions Date / Procedure(s) Performed Apr 30, 2017. Colonoscopy, EGD Allergy Information Coded Allergies: Levofloxacin (Verified Allergy, Unknown, muscle and joint pain, 04/30/17) Tetanus Toxoid (Verified Allergy, Unknown, CHEST PAIN, RESTLESSNESS, ) Atorvastatin (Verified Adverse Reaction, Intermediate, ELEVATED OPK LEVEL PER FAMILY PRACTICE NOTES ON CHART, 04/30/17) Tetracycline (Verified Adverse Reaction, Unknown, ESOPHAGEAL EROSION, 04/30) Discharge Date / Findings Apr 30, 2017. Esophageal compression, diverticulosis, hemorrhoids Medication Instructions Stopped Medication(s): ASPIRIN LAST DOSE 04/26/17 XARELTO LAST DOSE 04/27/17 Restart Stopped Medication(s): resume meds Reported Home Medications Medications Dose Route/Sig Max Daily Dose Days Date Category Soothe Xp (Artificial Tear Solution) 1 Wily Wily 1 Drop OPB UD PRN 04/21/17 Reported Ultracet (Tramadol/Acetaminophen) 37.5 Mg/325 Mg Tab 1 Tab PO TID PRN 04/21/17 Reported Culturelle (Lactobacillus-Inulin) 1 Cap Cap 1 Cap PO QPM 04/21/17 Reported Xarelto (Rivaroxaban) 20 Mg Tab 20 Mg PO QPM 04/21/17 Reported Prinivil (Lisinopril) 5 Mg Tab 5 Mg PO QAM 04/21/17 Reported Triamterene/Hctz 37.5-25MG (Triamterene/HCTZ) 1 Tab Tab 1 Tab PO QAM 11/25/16 Reported Calcium + D (Calcium Carbonate-Vitamin D) 1 Tab Tab 1 Tab PO QAM 11/25/16 Reported Carafate (Sucralfate) 1 Gm/10 Ml Monica 10 Ml PO QID 11/25/16 Reported Anusol-Hc (Hydrocortisone Acetate (Rectal) 25 Mg Sup 25 Mg ID BID PRN 11/25/16 Reported Neurontin (Gabapentin) 300 Mg Cap 300 Mg PO TID 11/11/16 Reported Tenormin (Atenolol) 25 Mg Tab 25 Mg PO QPM 11/11/16 Reported Crestor (Rosuvastatin Calcium) 10 Mg Tab 10 Mg PO QAM 11/11/16 Reported Nexium (Esomeprazole Magnesium) 40 Mg Capcr 40 Mg PO QAM 11/11/16 Reported Aspirin Ec (Aspirin) 81 Mg Tab 81 Mg PO QAM 11/11/16 Reported Nasacort Allergy 24Hr (Triamcinolone Acetonide (Nasal) 55 Mcg/Act Spr 2 Sprays MANASA QAM PRN 11/11/16 Reported Roberta Allergy (Fexofenadine Hcl) 180 Mg Tab 180 Mg PO QAM 11/11/16 Reported Tylenol (Acetaminophen) 500 Mg Tab 1,000 Mg PO BID PRN 11/11/16 Reported Ocuvite Preservision (Multivitamins/Minerals) 1 Tab Tab 1 Tab PO QAM 11/11/16 Reported Multivitamin (Multivitamins) Tab 1 Tab PO BID 11/11/16 Reported Glucosamine & Chrondroiti (Abixgbbewzv-Hbqeizfloqs-Rdqnpt) 1 Pow Pow 1 Tab PO BID 11/11/16 Reported [place]-3 (Fish Oil) 1 Ea Cap 1 Cap PO QPM 11/11/16 Reported Coq-10 (Coenzyme Q10 (Ubidecarenone)) 100 Mg Cap 100 Mg PO QAM 11/11/16 Reported B Complex (B-Complex Vitamins) 1 Cap Cap 1 Tab PO QAM 11/11/16 Reported Provider Instructions Activity Restrictions - No exercising or heavy lifting for 24 hours. - Do not drink alcohol the day of the procedure. - Do not drive a car or operate machinery until the day after the procedure. - Do not make any important decisions or sign important papers in 24 hours after the procedure. Following Day: - Return to full activity which may include returning to work/school. Diet Start your diet with liquids and light foods (jello, soup, juice, toast). Then eat your usual diet if not nauseated. Treatment For Common After Affects For mild abdominal pain, bloating, or excessive gas: - Rest - Eat lightly - Lie on right side Follow-Up Information Follow-up with DR. WATSON as scheduled Anesthesia Information What You Should Know You have had a procedure that required some medicine to reduce anxiety and discomfort. This treatment is called moderate sedation. After receiving the treatment, you may be sleepy, but you will be able to breathe on your own. The effects of the treatment may last for several hours. Follow these instructions along with Activity/Diet recommendations noted above: * Do NOT do anything where dizziness or clumsiness would be dangerous. * Rest quietly at home today, then you can be up and about tomorrow. * Have a responsible person stay with you the rest of today. * You may have had an I.V. today. If so, you may take the dressing off later today. Recommendations Call your doctor if: * Trouble breathing * Continuous vomiting for more than 24 hours * Temperature above 101 degrees * Severe abdominal pain or bloating * Pain not relieved by pain medicine ordered * There is increased drainage or redness from any incision * A large amount of rectal bleeding greater than 2-3 tablespoons. (If you had a polyp/s removed or have hemorrhoids, a small amount of blood - from the rectum is to be expected.) * You have any unanswered questions or concerns. IN THE EVENT OF A SERIOUS EMERGENCY, GO TO THE NEAREST EMERGENCY ROOM Your discharge instructions were prepared by provider Kenrick Leslie. Patient Instructions Signature Page Samira Juan Patient (or Guardian) Signature/Date: I have read and understand the instructions given to me by my caregivers. Caregiver/RN/Doctor Signature/Date: The above-named patient and/or guardian has received patient instructions on this date. + Original Patient Signature Page (only) stays with chart. Please make copy for patient.
--- NOTE | 2017-04-30 14:53 | GI REPORT ---
Procedure Date: 04/30/2017 2:13 PM Procedure: Upper GI endoscopy Indications: Dysphagia Medicines: Propofol total dose 250 mg IV, Lidocaine 80 mg IV Complications: No immediate complications. Estimated Blood Loss: Estimated blood loss: none. Procedure: Pre-Anesthesia Assessment: - Prior to the procedure, a History and Physical was performed, and patient medications, allergies and sensitivities were reviewed. The patient's tolerance of previous anesthesia was reviewed. - The risks and benefits of the procedure and the sedation options and risks were discussed with the patient. All questions were answered and informed consent was obtained. After obtaining informed consent, the endoscope was passed under direct vision. Throughout the procedure, the patient's blood pressure, pulse, and oxygen saturations were monitored continuously. The scope was introduced through the mouth, and advanced to the second part of duodenum. The upper GI endoscopy was accomplished without difficulty. The patient tolerated the procedure well. Findings: One moderate extrinsic stenosis in the upper third was found. And was pulsitile and traversed. The entire examined stomach was normal. The examined duodenum was normal. Impression: - Extrinsic narrowing of the esophagus. - Normal stomach. - Normal examined duodenum. - No specimens collected. Recommendation: - Discharge patient to home (ambulatory). - Continue present medications. - Return to primary care physician PRN. Kenrick Leslie M.D. Kenrick Leslie MD 04/30/2017 2:52:52 PM This report has been signed electronically. Note Initiated On: 04/30/2017 2:13 PM I attest to the content of the Intraoperative Record and orders documented therein, exceptions below
--- NOTE | 2017-04-30 14:56 | GI REPORT ---
Procedure Date: 04/30/2017 2:31 PM Procedure: Colonoscopy Indications: Abdominal pain in the left lower quadrant, Clinically significant diarrhea of unexplained origin Medicines: Propofol total dose 250 mg IV, Lidocaine 80 mg IV Complications: No immediate complications. Estimated Blood Loss: Estimated blood loss was minimal. Procedure: Pre-Anesthesia Assessment: - Prior to the procedure, a History and Physical was performed, and patient medications, allergies and sensitivities were reviewed. The patient's tolerance of previous anesthesia was reviewed. - The risks and benefits of the procedure and the sedation options and risks were discussed with the patient. All questions were answered and informed consent was obtained. After I obtained informed consent, the scope was passed under direct vision. Throughout the procedure, the patient's blood pressure, pulse, and oxygen saturations were monitored continuously. The scope was introduced through the anus and advanced to the terminal ileum. The colonoscopy was performed without difficulty. The patient tolerated the procedure well. The quality of the bowel preparation was excellent. Findings: Non-bleeding internal hemorrhoids were found during endoscopy. The hemorrhoids were mild. A few diverticula were found in the sigmoid colon, in the transverse colon and in the ascending colon. The terminal ileum appeared normal. Normal mucosa was found in the entire colon. Biopsies for histology were taken with a cold forceps from the ascending colon, transverse colon, descending colon and sigmoid colon for evaluation of microscopic colitis. Impression: - Non-bleeding internal hemorrhoids. - Diverticulosis in the sigmoid colon, in the transverse colon and in the ascending colon. - The examined portion of the ileum was normal. - Normal mucosa in the entire examined colon. Biopsied. Recommendation: - Discharge patient to home (ambulatory). - Continue present medications. - Await pathology results. - Return to primary care physician JERSEYN. Kenrick Leslie M.D. Kenrick Leslie MD 04/30/2017 2:55:37 PM This report has been signed electronically. Note Initiated On: 04/30/2017 2:31 PM I attest to the content of the Intraoperative Record and orders documented therein, exceptions below
--- NOTE | 2017-04-30 15:08 | Anesthesiology Progress Note ---
Anesthesia Post Op Note Date & Time Apr 30, 2017 at 15:08 Vital Signs Pain Intensity: 5 Vital Signs Past 12 Hours Date Time Temp Pulse Resp B/P (MAP) Pulse Ox O2 Delivery O2 Flow Rate FiO2 04/30/17 14:55 71 20 134/57 (82) 96 Room Air 04/30/17 13:53 36.7 72 18 151/62 (91) 96 Room Air Notes Mental Status: alert / awake / arousable, participated in evaluation Pt Amnestic to Procedure: Yes Nausea / Vomiting: adequately controlled Pain: adequately controlled Airway Patency, RR, SpO2: stable & adequate BP & HR: stable & adequate Hydration State: stable & adequate Anesthetic Complications: no major complications apparent
[2017-04-30 15:21] VITALS: BP 142/72; PULSE 68; O2SAT 97
== END | disposition home or self-care (01) ==
LOC: C.GI 12:38
PROVIDERS: ATTEND Internal Medicine Gastroenterology
DX: R10.32 Left lower quadrant pain (principal); R19.7 Diarrhea, unspecified; K57.30 Diverticulosis of large intestine without perforation or abscess without bleeding; K64.8 Other hemorrhoids; K22.2 Esophageal obstruction; Z79.01 Long term (current) use of anticoagulants; Z79.82 Long term (current) use of aspirin; Z79.899 Other long term (current) drug therapy

== ENCOUNTER → 2017-06-09 | Outpatient (CLI) | payer BC ==
[~2017-06-09] MED LIST changes: -LIDOCAINE HCL 2% 2 ML VIAL (20MG/ML) ONE; +OPTIRAY 320 IV PRN; -PROPOFOL IV EMULSION 10 MG/ML 20 ML VIAL IV ONE
--- NOTE | 2017-06-09 11:32 | DIAGNOSTIC IMAGING REPORT ---
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 TECHNIQUE: Multidetector CT angiography of the chest was performed after administration of intravenous contrast. 3-D volumetric and/or maximum intensity projection (MIP) images were subsequently reconstructed for review. IV contrast: 94 mL of Optiray 320. A dose lowering technique was used consistent with the principles of ALARA (as low as reasonably achievable). COMPARISON: None. CT DOSE (mGy.cm): The estimated cumulative dose is 215.00 mGy.cm. 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 Pulmonary vasculature: The study is adequate for assessment of the pulmonary vascular tree. No filling defect within the pulmonary arteries to suggest embolus. Main pulmonary artery is not enlarged. No flattening of the interventricular septum. No intracardiac intracardiac filling defect. No reflux of contrast into the hepatic veins. Remaining chest: On soft tissue windows, normal thyroid and thoracic inlet. Postsurgical change or dystrophic calcification noted in the medial left breast. Additional biopsy clips or atherosclerotic calcification suggested in the lower outer quadrant of the left breast. Calcification or biopsy clip noted in the lower outer quadrant of the right breast. Mildly prominent prevascular lymph node measuring 5 mm in the short axis. No pathologic enlarged lymph nodes. Normal aorta. Mild enlargement of the heart. Normal three-vessel aortic arch. No evidence of an aberrant vessel coursing posterior to the esophagus. Aortic valve calcification. Linear calcification in the left paramediastinal region may represent a calcified pleural plaque. No pericardial or pleural effusion. Upper abdomen normal. On lung windows, bandlike opacities in the lingula and right middle lobe likely scarring or atelectasis. No other focal infiltrate. Airways patent. On bone windows, degenerative changes of the thoracic spine. IMPRESSION: 1. No evidence of an aberrant vessel. Normal three-vessel aortic arch. 2. No evidence of pulmonary embolus. 3. Scarring or atelectasis in the lingula and right middle lobe. No other focal infiltrate. Electronically signed by: Evaristo Gamboa M.D. 06/09/2017 11:31 AM Dictated Date/Time: 06/09/2017 11:23 AM
== END | disposition home or self-care (01) ==
LOC: C.CTS 09:27
PROVIDERS: ATTEND Internal Medicine Cardiovascular Disease
DX: Q39.9 Congenital malformation of esophagus, unspecified (principal); R91.8 Other nonspecific abnormal finding of lung field

== ENCOUNTER → 2017-11-11 | Outpatient (CLI) | payer BC ==
[~2017-11-11] MED LIST changes: -ACET-1256 PO; +ACET-24 PO; -ASPI81TA28 PO; +FRRG PO; -MULT-506 PO; -OPTIRAY 320 IV PRN; -TRAMTAB5 PO; +ULT50X PO
--- NOTE | 2017-11-11 10:56 | DIAGNOSTIC IMAGING REPORT ---
L RIBS UNILATERAL MIN 2 VIEWS CLINICAL HISTORY: Left rib pain. Breast carcinoma. COMPARISON STUDY: No previous studies for comparison. FINDINGS: No pneumothorax is visualized. No left-sided rib fractures are visualized. No destructive lesions are visualized on conventional radiographic imaging. Subtle deformities of the left fourth and fifth ribs are felt to be old. IMPRESSION: 1. Subtle old fractures of left fourth and fifth ribs 2. No acute fractures. No destructive lesions are visualized on conventional radiographic imaging Electronically signed by: Wood Geiger M.D. 11/11/2017 10:54 AM Dictated Date/Time: 11/11/2017 10:53 AM
--- NOTE | 2017-11-11 10:57 | DIAGNOSTIC IMAGING REPORT ---
TWO VIEW CHEST CLINICAL HISTORY: Breast cancer. FINDINGS: PA and lateral chest radiographs are compared to study dated 12/11/2016. Correlation is made with chest CT dated 06/09/2017. The heart is enlarged and there is atherosclerotic calcification of the thoracic aorta. The pulmonary vasculature is noncongested. Chronic interstitial thickening is similar to previous. The lungs and pleural spaces are clear. There is no pneumothorax. The skeletal structures are osteopenic. Degenerative change and scoliosis are noted in the thoracic spine. Cholecystectomy clips are identified in the right upper quadrant. Surgical clips are present in the right lower neck. IMPRESSION: Cardiomegaly with no active disease in the chest. Electronically signed by: Francisco Cervantes M.D. 11/11/2017 10:56 AM Dictated Date/Time: 11/11/2017 10:55 AM
== END | disposition home or self-care (01) ==
LOC: C.RAD 09:56
PROVIDERS: ATTEND Internal Medicine Hematology & Oncology
DX: C50.112 Malignant neoplasm of central portion of left female breast (principal); I51.7 Cardiomegaly; R07.81 Pleurodynia; S22.42XS Multiple fractures of ribs, left side, sequela; X58.XXXS Exposure to other specified factors, sequela

== ENCOUNTER → 2018-01-13 | Outpatient (CLI) | payer BC | END | disposition home or self-care (01) | LOC: C.MAMM 15:12 | PROVIDERS: ATTEND Family Medicine | DX: S22.49XA Multiple fractures of ribs, unspecified side, initial encounter for closed fracture (principal); X58.XXXA Exposure to other specified factors, initial encounter; Z78.0 Asymptomatic menopausal state ==

== ENCOUNTER 2020-06-03 19:42 | Observation (INO) ==
[2020-06-03] MEDS ORDERED: SODIUM CHLORIDE 0.9% 500 ML IV SCH (20:15)
--- NOTE | 2020-06-03 20:26 | Emergency Department Note ---
Impression & Plan Headache, Hypertension, Unsteady ED Provider Note Provider: Ronaldo Kumar MD DATE OF SERVICE: 06/03/2020 CHIEF COMPLAINT: Headache, unsteady HISTORY OF PRESENT ILLNESS: Patient is a 85-year-old female with a past medical history including TIA, paroxysmal atrial fibrillation maintained on Xarelto, and hypertension presenting here today complaining that since she awoke this morning all day she has had some unsteadiness and some headache in the left posterior aspect of her head. Denies any trauma or syncope. Denies visual change or nausea or abdominal upset. Denies fever. Was little bit of sinus congestion. Denies any significant recent change in her hearing although she is hard of hearing. Patient denies any numbness or weakness in her extremities. Patient states several years ago she does have a history of a TIA with some left-sided weakness but that resolved and has not returned today. Patient states compliance with home Xarelto and aspirin. REVIEW OF SYSTEMS: A total of 10 review of systems was obtained and negative except as stated above in the HPI. 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 EYES: No injection, discharge or icterus. PERRL NECK: Trachea midline. Supple. ENT: Mucous membranes pink and moist. TMs clear bilaterally LUNGS: Airway patent. No retractions. Breath sounds clear HEART: Regular rate and rhythm. No chest wall tenderness ABDOMEN: Soft and non-tender, without guarding or rebound. SKIN: Acyanotic, warm, dry, without rashes EXTREMITIES: Without swelling, tenderness or deformity NEUROLOGICAL: No focal deficits. No aphasia. No facial droop or slurred speech. Normal strength and tone in the extremities. Sensation to gross touch normal. EKG: Normal sinus rhythm 75 bpm. No PVCs. No acute ST segment elevation or depression with an incomplete right bundle branch block present. Normal axis. CONTINUOUS CARDIAC MONITORING: was ordered and showed a heart rate of 81 bpm in normal sinus rhythm Patient's hypertension was referred to the hospitalist Patient's laboratory studies and imaging reviewed. Differential includes Infection, dehydration, metabolic abnormality, hypo/hyp erglycemia, electrolyte disturbance, anemia, hypoxia, cardiac sources, intracerebral event, toxicologic, neurologic, as well as other pathologies. IMPRESSION/MEDICAL DECISION MAKING: Patient presents complaining of some left posterior headache and feeling a bit unsteady on her feet today more than normal. Basic labs were completed. Patient noted to be hypertensive here. No facial droop, slurred, or focal deficits in the extremities noted. Some concern for possible stroke or to cranial bleed but she is outside the window for TPA. Patient denies other infectious symptomatologies but does states she is low bit of sinus congestion. I doubt coronavirus but could be related to possible URI. Given her anticoagulation status: No trauma is reported CT the head is complete as well as CTA of the head and neck vessels. She does have a history of a CVA on the right side previously so she is certainly at risk for possible vascular issue or posterior stroke. Patient does not appear grossly meningitic. No significant leukocytosis is noted again lower suspicion for acute bacterial infection. No significant anemia is noted. Creatinine at baseline and no significant electrolyte abnormality. Urine without signs of infection. Troponin is elevated at 0.118 does appear to have prior chronic elevations although this is a little bit higher than that. Not having active chest pain EKG without significant changes. This is likely related to her hypertension underlying chronic disease. CT the head likely without evidence of acute intracranial hemorrhage although small vessel disease changes are noted as well as some thickening of the left sphenoid sinus. Not convinced is truly represents a sinus infection. CT angiograms without acute occlusive disease noted per the pulmonary reports. Patient's blood pressure still significantly elevated and given this given a small dose of labetalol here. Ordered dose of Tylenol to help with headache as well. Discussed the patient further inpatient evaluation as she still feeling somewhat unsteady without clear explanation. Discussed that she may need further work-up including MRI to exclude occult stroke. Patient also appears to need improved blood pressure control given her hypertension here. She was in agreement with this. The hospitalist was contacted. DIAGNOSIS: Headache, unsteady, hypertension DISPOSITION: Hospitalist will evaluate Patient was agreeable with this plan. Preliminary Findings Only See Final Report For Complete Findings CT HEAD: Comparison: MRI brain/01/03. Involutional and chronic small vessel ischemic changes. No ICH, mass effect, or edema. No skull fracture. Mucosal thickening left sphenoid sinus. Radiologist: Demetria Jiménez M.D. Study ready at 22:06 and initial results transmitted at 22:19 Preliminary Findings Only See Final Report For Complete Findings CTA HEAD: Comparison: CT head 06/03/20. Intracranial atherosclerosis. Patent intracranial circulation. No large vessel occlusion. No aneurysm. Radiologist: Demetria Jiménez M.D. Study ready at 23:03 and initial results transmitted at 23:14 Preliminary Findings Only See Final Report For Complete Findings CTA NECK: Surgical clips adjacent to the right carotid bifurcation. Bilateral common carotid arteries are normal in caliber. Right ICA is normal in caliber. Mild atherosclerotic stenosis of the proximal left ICA. Bilateral vertebral arteries are normal in caliber. Bovine aortic arch anatomy. Radiologist: Demetria Jiménez M.D. Study ready at 23:03 and initial results transmitted at 23:14 Past Med/Surg History Medical History (Updated 06/03/20 @ 22:39 by Ronaldo Kumar M.D.) Acid reflux disease AF (paroxysmal atrial fibrillation) Allergic rhinitis Aortic stenosis CAD (coronary artery disease) Carotid artery stenosis Cystocele, midline Degenerative lumbar spinal stenosis EKG, abnormal Generalized osteoarthritis of multiple sites Glaucoma H/O TIA (transient ischemic attack) and stroke History of breast cancer Hypercholesterolemia Hypertension Jerking movements of extremities Mitral regurgitation Pessary maintenance Piriformis syndrome Postinflammatory pulmonary fibrosis Restless legs syndrome Right tennis elbow Trochanteric bursitis, right hip Surgical History H/O dilation and curettage H/O eye surgery History of bilateral knee replacement History of esophagogastroduodenoscopy (EGD) S/P appendectomy S/P breast lumpectomy S/P cardiac cath S/P carotid endarterectomy S/P cataract extraction S/P cholecystectomy S/P colonoscopy S/P hysterectomy S/P knee replacement S/P sinus surgery S/P tubal ligation Family History Other Heart disease Hypertension Pancreatic cancer Prostate cancer Social History Smoking Status: Never smoker Hx Alcohol Use: No Hx Substance Use: No Preferred Language: German Communication Ability: Effective Visual Impairment: Limited Hearing Ability: Normal Beliefs That Will Affect Care: None marital status: / Current Living Situation: Alone current occupational status: retired Feels Safe at Home: Yes Seatbelt Use: always Allergies Allergies Allergy/AdvReac Type Severity Reaction Status Date / Time levofloxacin Allergy Unknown muscle and Verified 06/03/20 21:33 joint pain tetanus toxoid, adsorbed Allergy Unknown CHEST Verified 06/03/20 21:33 PAIN, RESTLESSNESS atorvastatin AdvReac Intermediate ELEVATED Verified 06/03/20 21:33 OPK LEVEL PER FAMILY PRACTICE NOTES ON CHART tetracycline AdvReac Unknown ESOPHAGEAL Verified 06/03/20 21:33 EROSION Home Meds Home Medications Medication Instructions Recorded Confirmed calcium carbonate 600 mg calcium 600 mg PO QPM tab 04/24/19 06/03/20 (1,500 mg) tablet vitamin B complex 1 tab PO QAM 04/24/19 06/03/20 aspirin 81 mg tablet,delayed 81 mg PO QAM tab 04/27/19 06/03/20 release coenzyme Q10 100 mg capsule 100 mg PO DAILY cap 04/27/19 06/03/20 fluticasone propionate 50 2 sprays INTNAS DAILY PRN ml 10/05/19 06/03/20 mcg/actuation nasal spray,suspension gabapentin 100 mg capsule See Rx Instructions PO DAILY cap 03/19/20 06/03/20 Lactobacillus rhamnosus GG 1 cap PO QPM 06/03/20 06/03/20 [Culturelle] atenolol 25 mg PO QPM 06/03/20 06/03/20 cetirizine [Zyrtec] 10 mg PO QAM 06/03/20 06/03/20 esomeprazole magnesium [Nexium] 40 mg PO QAM 06/03/20 06/03/20 glucos sul [id number] 1 cap PO BID 06/03/20 06/03/20 [Glucosamine Chondroitin] light mineral oil-mineral oil 1 drp OPHTHALMIC (EYE) UD 06/03/20 06/03/20 [Soothe XP] losartan 100 mg PO QAM 06/03/20 06/03/20 magnesium 250 mg PO QAM 06/03/20 06/03/20 omega-3 fatty acids [Grottoes 3 Fish 500 mg PO QPM 06/03/20 06/03/20 Oil] rivaroxaban 20 mg PO QPM 06/03/20 06/03/20 rosuvastatin 10 mg PO QPM 06/03/20 06/03/20 triamterene-hydrochlorothiazid 1 tab PO DAILY 06/03/20 06/03/20 [Maxzide-25mg] turmeric root extract 500 mg PO QAM 06/03/20 06/03/20 vit C-vit O-flczcs-sqiy-lutein 1 cap PO BID 06/03/20 06/03/20 [PreserVision Lutein] Previous Rx's Medication Instructions Recorded sucralfate 100 mg/mL oral 10 ml PO QID PRN #420 ml 11/08/19 suspension albuterol sulfate 90 mcg/actuation 2 puffs INH Q6H PRN #18 gm 01/01/20 aerosol inhaler tramadol 37.5 mg-acetaminophen 325 1 tab PO Q6H PRN #100 tab 03/19/20 mg tablet Results & Data (ED) Vital Signs Vital Signs - 24 hr 06/03/20 19:49 06/03/20 20:40 06/03/20 21:00 Temperature 37.1 C Temperature Source Oral Pulse Rate 86 Pulse Rate [Apical] 76 Respiratory Rate 20 24 Respiratory Effort / Characteristics Non-Labored Spontaneous Non-Labored Spontaneous Respiratory Depth Normal Normal Blood Pressure 199/94 H Blood Pressure [Right Arm] 197/89 H Blood Pressure Mean 129 Blood Pressure Mean [Right Arm] 125 Pulse Oximetry 97 93 Oxygen Delivery Method Room Air Room Air Room Air Sepsis New/Unexplained Change in Mental Status N/A Sepsis Action Taken by Nursing No Action Required 06/03/20 23:01 Temperature Temperature Source Pulse Rate Pulse Rate [Apical] 73 Respiratory Rate 16 Respiratory Effort / Characteristics Non-Labored Spontaneous Respiratory Depth Normal Blood Pressure Blood Pressure [Right Arm] 197/86 H Blood Pressure Mean Blood Pressure Mean [Right Arm] 123 Pulse Oximetry 94 Oxygen Delivery Method Room Air Sepsis New/Unexplained Change in Mental Status Sepsis Action Taken by Nursing Laboratory Data Result diagrams: 06/03/20 21:09 06/03/20 21:09 Lab Results 06/03/20 06/03/20 06/03/20 Range/Units 21:09 21:09 21:09 WBC 6.56 (4.8-10.8) K/uL RBC 4.76 (4.2-5.4) M/uL Hgb 14.5 (12.0-16.0) g/dL POC Hgb (12.0-16.0) g/dl Hct 45.1 (37-47) % POC Hct (37-47) % MCV 94.7 (80-100) fL MCH 30.5 (25-34) pg MCHC 32.2 (32-36) g/dL RDW Std Deviation 43.6 (36.4-46.3) fL RDW Coeff of Zion 12.5 (11.5-14.5) % Plt Count 218 (130-400) K/uL MPV 10.5 H (7.4-10.4) fL Immature Gran % (Auto) 0.3 % Neut % (Auto) 65.7 % Lymph % (Auto) 22.6 % Geary % (Auto) 9.9 % Eos % (Auto) 0.6 % Baso % (Auto) 0.9 % Neut # (Auto) 4.31 (1.4-6.5) K/uL Lymph # (Auto) 1.48 (1.2-3.4) K/uL Geary # (Auto) 0.65 H (0.11-0.59) K/uL Eos # (Auto) 0.04 (0-0.5) K/uL Baso # (Auto) 0.06 (0-0.2) K/uL Immature Gran # (Auto) 0.02 (0.00-0.02) K/uL PT 11.0 (9.0-12.0) Seconds INR 1.0 (0.9-1.1) POC Sodium (135-144) mmol/L Sodium 141 (136-145) mmol/L POC Potassium (3.3-5.0) mmol/L Potassium 3.9 (3.5-5.1) mmol/L POC Chloride (101-112) mmol/L Chloride 103 (98-107) mmol/L Carbon Dioxide 29 (21-32) mmol/L POC Total CO2 (24-31) mmol/L Anion Gap 8.0 (3-11) POC Anion Gap (16-25) mmol/L POC BUN (7-18) mg/dl BUN 20 H (7-18) mg/dl Creatinine 1.19 (0.6-1.2) mg/dl POC Creatinine (0.6-1.3) mg/dl Est Cr Clr Drug Dosing 36.0 ml/min Est GFR ( Amer) 48.2 Est GFR (Non-Af Amer) 41.6 BUN/Creatinine Ratio 16.6 (10-20) Glucose 83 (70-99) mg/dl POC Glucose (other) (70-99) mg/dl Calcium 9.8 (8.5-10.1) mg/dl POC Ioniz Calcium Dejon (1.12-1.32) mmol/l Magnesium 2.0 (1.8-2.4) mg/dl Total Bilirubin 0.8 (0.2-1) mg/dl AST 25 (15-37) U/L ALT 18 (12-78) U/L Alkaline Phosphatase 83 (45-117) U/L Troponin I 0.118 H* (0-0.045) ng/ml Total Protein 8.9 H (6.4-8.2) gm/dl Albumin 4.1 (3.4-5.0) gm/dl Globulin 4.8 H (2.5-4.0) gm/dl Albumin/Globulin Ratio 0.9 (0.9-2) TSH 4.220 (0.300-4.500) uIu/ml Urine Color Urine Appearance (Clear) Urine pH (4.5-7.5) Ur Specific Cameron (1.000-1.030) Urine Protein (Negative) Urine Glucose (UA) (Negative) Urine Ketones (Negative) Urine Blood (Negative) Urine Nitrite (Negative) Urine Bilirubin (Negative) Urine Urobilinogen (Negative) Ur Leukocyte Esterase (Negative) 06/03/20 06/03/20 Range/Units 21:25 21:33 WBC (4.8-10.8) K/uL RBC (4.2-5.4) M/uL Hgb (12.0-16.0) g/dL POC Hgb 15.3 (12.0-16.0) g/dl Hct (37-47) % POC Hct 45 (37-47) % MCV (80-100) fL MCH (25-34) pg MCHC (32-36) g/dL RDW Std Deviation (36.4-46.3) fL RDW Coeff of Zion (11.5-14.5) % Plt Count (130-400) K/uL MPV (7.4-10.4) fL Immature Gran % (Auto) % Neut % (Auto) % Lymph % (Auto) % Geary % (Auto) % Eos % (Auto) % Baso % (Auto) % Neut # (Auto) (1.4-6.5) K/uL Lymph # (Auto) (1.2-3.4) K/uL Geary # (Auto) (0.11-0.59) K/uL Eos # (Auto) (0-0.5) K/uL Baso # (Auto) (0-0.2) K/uL Immature Gran # (Auto) (0.00-0.02) K/uL PT (9.0-12.0) Seconds INR (0.9-1.1) POC Sodium 141 (135-144) mmol/L Sodium (136-145) mmol/L POC Potassium 3.9 (3.3-5.0) mmol/L Potassium (3.5-5.1) mmol/L POC Chloride 105 (101-112) mmol/L Chloride (98-107) mmol/L Carbon Dioxide (21-32) mmol/L POC Total CO2 27 (24-31) mmol/L Anion Gap (3-11) POC Anion Gap 15.0 L (16-25) mmol/L POC BUN 21 H (7-18) mg/dl BUN (7-18) mg/dl Creatinine (0.6-1.2) mg/dl POC Creatinine 1.1 (0.6-1.3) mg/dl Est Cr Clr Drug Dosing ml/min Est GFR ( Amer) Est GFR (Non-Af Amer) BUN/Creatinine Ratio (10-20) Glucose (70-99) mg/dl POC Glucose (other) 86 (70-99) mg/dl Calcium (8.5-10.1) mg/dl POC Ioniz Calcium Dejon 1.13 (1.12-1.32) mmol/l Magnesium (1.8-2.4) mg/dl Total Bilirubin (0.2-1) mg/dl AST (15-37) U/L ALT (12-78) U/L Alkaline Phosphatase (45-117) U/L Troponin I (0-0.045) ng/ml Total Protein (6.4-8.2) gm/dl Albumin (3.4-5.0) gm/dl Globulin (2.5-4.0) gm/dl Albumin/Globulin Ratio (0.9-2) TSH (0.300-4.500) uIu/ml Urine Color Yellow Urine Appearance Clear (Clear) Urine pH 8.0 H (4.5-7.5) Ur Specific Cameron 1.008 (1.000-1.030) Urine Protein Negative (Negative) Urine Glucose (UA) Negative (Negative) Urine Ketones Negative (Negative) Urine Blood Negative (Negative) Urine Nitrite Negative (Negative) Urine Bilirubin Negative (Negative) Urine Urobilinogen Negative (Negative) Ur Leukocyte Esterase Negative (Negative) Administered Medications Discontinued Medications Acetaminophen (Acetaminophen 500 Mg Tab) 1,000 mg PO NOW STA Stop: 06/03/20 22:40 Last Admin: 06/03/20 23:03 Dose: 1,000 mg Documented by: [id number] Sodium Chloride (Nss) 500 mls @ 999 mls/hr IV .Q31M LOREN Stop: 06/03/20 20:45 Last Admin: 06/03/20 23:03 Dose: 999 mls/hr Documented by: [id number] Ioversol (Optiray 320 125ml) 119 ml IV ONCE ONE Stop: 06/03/20 21:39 Last Admin: 06/03/20 21:38 Dose: 119 ml Documented by: [id number] Labetalol HCl (Labetalol Hcl Iv 5 Mg/Ml 20ml) 10 mg IV NOW STA Stop: 06/03/20 22:38 Last Admin: 06/03/20 23:04 Dose: 10 mg Documented by: [id number] Cosigned by: [id number] Discharge Plan Visit Data Chief Complaint: Headache Stated Complaint: HEADACHE ED Provider: Ronaldo Kumar Discharge Problem: Headache, Hypertension, Unsteady Patient Disposition: Being Evaluated by Hospitalist Prescriptions Prescriptions: No Action fluticasone propionate [Flonase Allergy Relief] 50 mcg/actuation spray,colindres spension 2 sprays INTNAS DAILY PRN (Reason: allergy symptoms) RF: 0 sucralfate [Carafate] 100 mg/mL suspension 10 ml PO QID PRN (Reason: nausea) Qty: 420 RF: 0 gabapentin 100 mg capsule See Rx Instructions PO DAILY RF: 0 tramadol-acetaminophen 37.5-325 mg tablet 1 tab PO Q6H PRN (Reason: pain) Qty: 100 RF: 0 vitamin B complex [B Complex 1] tablet 1 tab PO QAM RF: 0 calcium carbonate [Calcium 600] 600 mg calcium (1,500 mg) tablet 600 mg PO QPM RF: 0 aspirin 81 mg tablet,delayed release (DR/EC) 81 mg PO QAM RF: 0 coenzyme Q10 100 mg capsule 100 mg PO DAILY RF: 0 albuterol sulfate 90 mcg/actuation HFA aerosol inhaler 2 puffs INH Q6H PRN (Reason: shortness of breath or wheezing) Qty: 18 RF: 1 cetirizine [Zyrtec] 10 mg Tablet 10 mg PO QAM RF: 0 esomeprazole magnesium [Nexium] 40 mg Capsule,Delayed Release(Dr/Ec) 40 mg PO QAM RF: 0 magnesium 250 mg Tablet 250 mg PO QAM RF: 0 Culturelle 10 billion cell Capsule 1 cap PO QPM RF: 0 Grottoes 3 Fish Oil Capsule 500 mg PO QPM RF: 0 PreserVision Lutein 226 mg-200 unit -5 mg-0.8 mg Capsule 1 cap PO BID RF: 0 Glucosamine Chondroitin 550-30-1 mg Capsule 1 cap PO BID RF: 0 atenolol 25 mg tablet 25 mg PO QPM RF: 0 losartan 100 mg tablet 100 mg PO QAM RF: 0 rosuvastatin 10 mg tablet 10 mg PO QPM RF: 0 rivaroxaban 20 mg tablet 20 mg PO QPM RF: 0 Soothe XP 1-4.5 % Drops 1 drp OPHTHALMIC (EYE) UD RF: 0 turmeric root extract 500 mg Capsule 500 mg PO QAM RF: 0 triamterene-hydrochlorothiazid [Maxzide-25mg] 37.5-25 mg tablet 1 tab PO DAILY RF: 0 Referrals Referrals: Cassidy Hernandez MD [Primary Care Provider] - Discharge Problem: Headache Qualifiers: Headache type: unspecified Headache chronicity pattern: acute headache Intractability: not intractable Qualified Code(s): R51 - Headache Hypertension Qualifiers: Hypertension type: unspecified Qualified Code(s): I10 - Essential (primary) hypertension
--- NOTE | 2020-06-03 21:04 | XRay Report ---
XR chest 1V portable HISTORY: weakness COMPARISON: Chest 11/11/2017. FINDINGS: The heart remains mildly enlarged. No pneumothorax. No pleural effusions. A few linear dens ities within the left lower lung zone which likely represents scarring. Otherwise, lungs are clear. S urgical clips again noted within the right neck. IMPRESSION: Stable mild cardiomegaly. No acute process within the chest. ACT 112: Negative or not required by law. Electronically signed by: Jerod Sommer M.D. 06/03/2020 9:02 PM
[2020-06-03 21:36] LABS: Basophils # (auto) 0.06 K/uL (0-0.2); Basophils % (auto) 0.9 %; Eosinophils # (auto) 0.04 K/uL (0-0.5); Eosinophils % (auto) 0.6 %; Hematocrit (blood only) 45.1 % (37-47); Hemoglobin 14.5 g/dL (12.0-16.0); Immature Granulocytes # (auto) 0.02 K/uL (0.00-0.02); Immature Granulocytes % (auto) 0.3 %; Lymphocytes # (auto) 1.48 K/uL (1.2-3.4); Lymphocytes % (auto) 22.6 %; Mean Corpuscular Hemoglobin 30.5 pg (25-34); Mean Corpuscular Hgb Conc 32.2 g/dL (32-36); Mean Corpuscular Volume 94.7 fL (80-100); Mean Platelet Volume 10.5 fL (7.4-10.4); Monocytes # (auto) 0.65 K/uL (0.11-0.59); Monocytes % (auto) 9.9 %; Neutrophils # (auto) 4.31 K/uL (1.4-6.5); Neutrophils % (auto) 65.7 %; Platelet Count 218 K/uL (130-400); RDW Coefficient of Variation 12.5 % (11.5-14.5); RDW Standard Deviation 43.6 fL (36.4-46.3); Red Blood Count 4.76 M/uL (4.2-5.4); White Blood Count 6.56 K/uL (4.8-10.8)
[2020-06-03] MEDS ORDERED: OPTIRAY 320 125ml IV ONE (21:38)
[2020-06-03 21:45] LABS: iSTAT Creatinine 1.1 mg/dl (0.6-1.3); iSTAT Hemoglobin 15.3 g/dl (12.0-16.0); iSTAT Ionized Calcium 1.13 mmol/l (1.12-1.32); iSTAT Potassium 3.9 mmol/L (3.3-5.0)
[2020-06-03 21:56] LABS: Albumin Level 4.1 gm/dl (3.4-5.0); BUN Creatinine Ratio 16.6 (10-20); Calcium 9.8 mg/dl (8.5-10.1); Est GFR (African American) 48.2; Est GFR (Non-African American) 41.6; Potassium 3.9 mmol/L (3.5-5.1)
[2020-06-03 22:10] LABS: Appearance Urine Clear (Clear); Bilirubin Urine Negative (Negative); Blood Urine Negative (Negative); Color Urine Yellow; Glucose Urine UA Negative (Negative); Ketones Urine Negative (Negative); Leukocyte Esterase Urine Negative (Negative); Nitrite Urine Negative (Negative); Protein Urine Negative (Negative); Specific Gravity Urine 1.008 (1.000-1.030); Urobilinogen Urine Negative (Negative)
[2020-06-03 22:30] LABS: Albumin Globulin Ratio 0.9 (0.9-2); Bilirubin,Total 0.8 mg/dl (0.2-1); Globulin 4.8 gm/dl (2.5-4.0); Thyroid Stimulating Hormone 4.22 uIu/ml (0.300-4.500); Total Protein 8.9 gm/dl (6.4-8.2); Troponin I 0.118 ng/ml (0-0.045)
[2020-06-03] MEDS ORDERED: LABETALOL HCL IV 5 MG/ML 20ML IV STA (22:37)
[2020-06-03] MEDS ORDERED: ACETAMINOPHEN 500 MG TAB PO STA (22:39)
--- NOTE | 2020-06-03 23:59 | History & Physical Report ---
Date of Service June 03, 2020 Assessment & Plan (1) TIA (transient ischemic attack): TIA/carotid stenosis- Status post right CEA by Dr. Perez at [facility]. Left carotid bruit on examination, with known 50 to 60% stenosis on recent study at [facility] Admit to monitored bed with stroke without TPA protocol. Continue aspirin and Xarelto. Consult PT/OT/speech/manager social/neurology MRI of brain on hold, until further clarification of surgical clips noted at right carotid on CT Present on Admission?: Yes (2) CAD (coronary artery disease): CAD/hypertension/paroxysmal atrial fibrillation- Continue aspirin 81 mg daily, atenolol 25 mg daily. Hold losartan 100 mg daily and triamterene/HCTZ 37.5/25 daily Continue Xarelto 20 mg daily Present on Admission?: Yes (3) Hypertension: See above Present on Admission?: Yes (4) AF (paroxysmal atrial fibrillation): See above Present on Admission?: Yes (5) Carotid artery stenosis: See above Present on Admission?: Yes (6) Headache: Relieved by Tylenol in the ED Present on Admission?: Yes (7) Hypercholesterolemia: Continue rosuvastatin 10 mg daily Check a fasting lipid panel Present on Admission?: Yes (8) Acid reflux disease: Continue Nexium or substitute daily Present on Admission?: Yes History of Present Illness Chief Complaint: The patient presents to the emergency department with complaint of unsteadiness on her feet over the past few weeks, which worsened significantly today, and had the development of left occipital/cervical headache today, which was relieved by Tylenol in the ED Primary Care Provider: Cassidy Hernandez MD The patient is an 85-year-old female with a past medical history including piriformis syndrome, lumbar degenerative disc disease/stenosis, lumbar radiculopathy with neurogenic claudication, history of TIA and stroke, RLS, postinflammatory pulmonary fibrosis, mild regurgitation, hypertension, hypercholesterolemia, history of breast cancer, carotid artery stenosis status post right CEA at [facility], aortic stenosis, CAD and paroxysmal atrial fibrillation. She presents as noted above. Work-up in the emergency department included a CT of the head without contrast, CTA of head which was negative, and CTA of neck which showed right carotid surgical clips. Allergies Allergy/AdvReac Type Severity Reaction Status Date / Time levofloxacin Allergy Unknown muscle and Verified 06/03/20 21:33 joint pain tetanus toxoid, adsorbed Allergy Unknown CHEST Verified 06/03/20 21:33 PAIN, RESTLESSNESS atorvastatin AdvReac Intermediate ELEVATED Verified 06/03/20 21:33 OPK LEVEL PER FAMILY PRACTICE NOTES ON CHART tetracycline AdvReac Unknown ESOPHAGEAL Verified 06/03/20 21:33 EROSION Home Medications Home Medications Medication Instructions Recorded Confirmed Type calcium carbonate 600 mg calcium 600 mg PO QPM tab 04/24/19 06/03/20 History (1,500 mg) tablet vitamin B complex 1 tab PO QAM 04/24/19 06/03/20 History aspirin 81 mg tablet,delayed 81 mg PO QAM tab 04/27/19 06/03/20 History release coenzyme Q10 100 mg capsule 100 mg PO DAILY cap 04/27/19 06/03/20 History fluticasone propionate 50 2 sprays INTNAS DAILY PRN ml 10/05/19 06/03/20 History mcg/actuation nasal spray,suspension sucralfate 100 mg/mL oral 10 ml PO QID PRN #420 ml 11/08/19 06/03/20 Rx suspension albuterol sulfate 90 mcg/actuation 2 puffs INH Q6H PRN #18 gm 01/01/20 06/03/20 Rx aerosol inhaler gabapentin 100 mg capsule See Rx Instructions PO DAILY cap 03/19/20 06/03/20 History tramadol 37.5 mg-acetaminophen 325 1 tab PO Q6H PRN #100 tab 03/19/20 06/03/20 Rx mg tablet Lactobacillus rhamnosus GG 1 cap PO QPM 06/03/20 06/03/20 History [Culturelle] atenolol 25 mg PO QPM 06/03/20 06/03/20 History cetirizine [Zyrtec] 10 mg PO QAM 06/03/20 06/03/20 History esomeprazole magnesium [Nexium] 40 mg PO QAM 06/03/20 06/03/20 History glucos sul 1PYz-fos-taklw-C-Mn 1 cap PO BID 06/03/20 06/03/20 History [Glucosamine Chondroitin] light mineral oil-mineral oil 1 drp OPHTHALMIC (EYE) UD 06/03/20 06/03/20 History [Soothe XP] losartan 100 mg PO QAM 06/03/20 06/03/20 History magnesium 250 mg PO QAM 06/03/20 06/03/20 History omega-3 fatty acids [Dubois 3 Fish 500 mg PO QPM 06/03/20 06/03/20 History Oil] rivaroxaban 20 mg PO QPM 06/03/20 06/03/20 History rosuvastatin 10 mg PO QPM 06/03/20 06/03/20 History triamterene-hydrochlorothiazid 1 tab PO DAILY 06/03/20 06/03/20 History [Maxzide-25mg] turmeric root extract 500 mg PO QAM 06/03/20 06/03/20 History vit C-vit F-wwpicu-akie-lutein 1 cap PO BID 06/03/20 06/03/20 History [PreserVision Lutein] Past Med/Surg History Medical History (Updated 06/04/20 @ 03:39 by Daquan Golden MD) Acid reflux disease AF (paroxysmal atrial fibrillation) Allergic rhinitis Aortic stenosis CAD (coronary artery disease) Carotid artery stenosis Cystocele, midline Degenerative lumbar spinal stenosis EKG, abnormal Generalized osteoarthritis of multiple sites Glaucoma H/O TIA (transient ischemic attack) and stroke History of breast cancer Hypercholesterolemia Hypertension Jerking movements of extremities Mitral regurgitation Pessary maintenance Piriformis syndrome Postinflammatory pulmonary fibrosis Restless legs syndrome Right tennis elbow Trochanteric bursitis, right hip Surgical History H/O dilation and curettage H/O eye surgery History of bilateral knee replacement History of esophagogastroduodenoscopy (EGD) S/P appendectomy S/P breast lumpectomy S/P cardiac cath S/P carotid endarterectomy S/P cataract extraction S/P cholecystectomy S/P colonoscopy S/P hysterectomy S/P knee replacement S/P sinus surgery S/P tubal ligation Family History Other Heart disease Hypertension Pancreatic cancer Prostate cancer Social History Smoking Status: Never smoker Hx Alcohol Use: No Hx Substance Use: No Preferred Language: Belizean Communication Ability: Effective Visual Impairment: Limited Hearing Ability: Normal Wheel Press Operator Required: No Beliefs That Will Affect Care: None marital status: / Current Living Situation: Alone current occupational status: retired Other Information That Helps Us Care for You: No Feels Safe at Home: Yes Safety Concerns: Feels Safe At This Time Seatbelt Use: always Review of Systems Review of Systems: The patient denies chest pain, palpitations, shortness of breath, dyspnea on exertion, cough, lower extremity swelling, sore throat, fevers, chills, sweats, weight change, fatigue, nausea, vomiting, diarrhea , constipation, abdominal pain, pelvic pain, blood in urine or stool, dysuria, urinary frequency or urgency, memory loss, loss of consciousness, rash, abnormal bruising or bleeding, focal weakness, numbness or tingling in arms or legs, generalized arthralgias or myalgias, or night sweats. The review of systems is otherwise negative other than for that already noted above, and at least 10 systems have been reviewed. Physical Exam Physical Exam: The patient is awake, alert and oriented 3, well developed and well nourished, normocephalic and atraumatic, lying in bed and in no acute distress. HEENT--PERRL, EOMI, mucous membranes and oropharynx dry. Neck--supple. No JVD. Left carotid bruit. Heart--normal S1 and S2. No murmurs, rubs or gallops. Lungs--clear bilaterally, no respiratory distress, no accessory muscle use. Abdomen--normal bowel sounds and soft. Nontender. Nondistended. Extremities--no cyanosis or clubbing. No edema. Dermatologic--normal skin turgor, normal color, no abnormal lymph nodes, no rash. Neurologic--cranial nerves II through XII grossly intact. Rheumatologic--limited exam Psychiatric--normal affect. Results & Data Results & Data ([facility]) Vital Signs (Past 12 Hours) Vital Signs Temp Pulse Pulse Resp BP BP Pulse Ox 06/03/20 23:16 74 188/81 H 06/03/20 23:01 73 16 197/86 H 94 06/03/20 21:00 76 24 197/89 H 93 06/03/20 19:49 98.8 F 86 20 199/94 H 97 Laboratory Results Laboratory Results WBC 6.56 K/uL (4.8-10.8) 06/03/20 21:09 RBC 4.76 M/uL (4.2-5.4) 06/03/20 21:09 Hgb 14.5 g/dL (12.0-16.0) 06/03/20 21:09 POC Hgb 15.3 g/dl (12.0-16.0) 06/03/20 21:33 Hct 45.1 % (37-47) 06/03/20 21:09 POC Hct 45 % (37-47) 06/03/20 21:33 MCV 94.7 fL (80-100) 06/03/20 21:09 MCH 30.5 pg (25-34) 06/03/20 21: MCHC 32.2 g/dL (32-36) 06/03/20 21:09 RDW Std Deviation 43.6 fL (36.4-46.3) 06/03/20 21:09 RDW Coeff of Zion 12.5 % (11.5-14.5) 06/03/20 21:09 Plt Count 218 K/uL (130-400) 06/03/20 21:09 MPV 10.5 fL (7.4-10.4) H 06/03/20 21:09 Immature Gran % (Auto) 0.3 % 06/03/20 21:09 Neut % (Auto) 65.7 % 06/03/20 21:09 Lymph % (Auto) 22.6 % 06/03/20 21:09 Schoolcraft % (Auto) 9.9 % 06/03/20 21:09 Eos % (Auto) 0.6 % 06/03/20 21:09 Baso % (Auto) 0.9 % 06/03/20 21:09 Neut # (Auto) 4.31 K/uL (1.4-6.5) 06/03/20 21:09 Lymph # (Auto) 1.48 K/uL (1.2-3.4) 06/03/20 21:09 Schoolcraft # (Auto) 0.65 K/uL (0.11-0.59) H 06/03/20 21:09 Eos # (Auto) 0.04 K/uL (0-0.5) 06/03/20 21:09 Baso # (Auto) 0.06 K/uL (0-0.2) 06/03/20 21:09 Immature Gran # (Auto) 0.02 K/uL (0.00-0.02) 06/03/20 21:09 PT 11.0 Seconds (9.0-12.0) 06/03/20 21:09 INR 1.0 (0.9-1.1) 06/03/20 21:09 POC Sodium 141 mmol/L (135-144) 06/03/20 21:33 Sodium 141 mmol/L (136-145) 06/03/20 21:09 POC Potassium 3.9 mmol/L (3.3-5.0) 06/03/20 21:33 Potassium 3.9 mmol/L (3.5-5.1) 06/03/20 21:09 POC Chloride 105 mmol/L (101-112) 06/03/20 21: Chloride 103 mmol/L (98-107) 06/03/20 21:09 Carbon Dioxide 29 mmol/L (21-32) 06/03/20 21:09 POC Total CO2 27 mmol/L (24-31) 06/03/20 21:33 Anion Gap 8.0 (3-11) 06/03/20 21:09 POC Anion Gap 15.0 mmol/L (16-25) L 06/03/20 21:33 POC BUN 21 mg/dl (7-18) H 06/03/20 21:33 BUN 20 mg/dl (7-18) H 06/03/20 21:09 Creatinine 1.19 mg/dl (0.6-1.2) 06/03/20 21:09 POC Creatinine 1.1 mg/dl (0.6-1.3) 06/03/20 21:33 Est Cr Clr Drug Dosing 36.0 ml/min 06/03/20 21:09 Est GFR ( Amer) 48.2 06/03/20 21:09 Est GFR (Non-Af Amer) 41.6 06/03/20 21:09 BUN/Creatinine Ratio 16.6 (10-20) 06/03/20 21:09 Glucose 83 mg/dl (70-99) 06/03/20 21:09 POC Glucose (other) 86 mg/dl (70-99) 06/03/20 21:33 Calcium 9.8 mg/dl (8.5-10.1) 06/03/20 21:09 POC Ioniz Calcium Dejon 1.13 mmol/l (1.12-1.32) 06/03/20 21:33 Magnesium 2.0 mg/dl (1.8-2.4) 06/03/20 21:09 Total Bilirubin 0.8 mg/dl (0.2-1) 06/03/20 21:09 AST 25 U/L (15-37) 06/03/20 21:09 ALT 18 U/L (12-78) 06/03/20 21:09 Alkaline Phosphatase 83 U/L (45-117) 06/03/20 21:09 Troponin I 0.118 ng/ml (0-0.045) H* 06/03/20 21:09 Total Protein 8.9 gm/dl (6.4-8.2) H 06/03/20 21:09 Albumin 4.1 gm/dl (3.4-5.0) 06/03/20 21: Globulin 4.8 gm/dl (2.5-4.0) H 06/03/20 21:09 Albumin/Globulin Ratio 0.9 (0.9-2) 06/03/20 21:09 TSH 4.220 uIu/ml (0.300-4.500) 06/03/20 21:09 Urine Color Yellow 06/03/20 21:25 Urine Appearance Clear (Clear) 06/03/20 21:25 Urine pH 8.0 (4.5-7.5) H 06/03/20 21:25 Ur Specific Mckenna 1.008 (1.000-1.030) 06/03/20 21:25 Urine Protein Negative (Negative) 06/03/20 21:25 Urine Glucose (UA) Negative (Negative) 06/03/20 21:25 Urine Ketones Negative (Negative) 06/03/20 21: Urine Blood Negative (Negative) 06/03/20 21: Urine Nitrite Negative (Negative) 06/03/20 21:25 Urine Bilirubin Negative (Negative) 06/03/20 21:25 Urine Urobilinogen Negative (Negative) 06/03/20 21:25 Ur Leukocyte Esterase Negative (Negative) 06/03/20 21:25 Diagnostic Findings [facility] [phone] XRay Report Patient: BARBRA GIBBONS Date: 06/03/20 MR#: [id number]: [address] Acct ID:[id number]: [facility] Zip: [place] [address] Age: 85Location: ED Sex: FRoom/Bed: Att Phy:Diagnosis: HEADACHE Amy Phy: Cassidy Hernandez, MDService Date: 06/03/20 Fam Phy:Interpreting Phy: Jerod Sommer MD Admit Phy: Ordering Phy: Ronaldo Kumar M.D. cc: ~ XR chest 1V portable HISTORY: weakness COMPARISON: Chest 11/11/2017. FINDINGS: The heart remains mildly enlarged. No pneumothorax. No pleural effusions. A few linear densities within the left lower lung zone which likely represents scarring. Otherwise, lungs are clear. Surgical clips again noted within the right neck. IMPRESSION: Stable mild cardiomegaly. No acute process within the chest. ACT 112: Negative or not required by law. Electronically signed by: Jerod Sommer M.D. 06/03/2020 9:02 PM Dictated: 06/03/202100 Transcribed: 06/03/202100 [facility] Patient: BARBRA GIBBONS (Female) : 35 Status: ER Date: 06/03/20 22:03 Room #: History: DIZZY HEADACHE Slices: 58 Priors: Tech: Momo Carrington @ [phone] Exams: CT HEAD Contrast: Accession Numbers: [id number] Preliminary Findings Only See Final Report For Complete Findings CT HEAD: Comparison: MRI brain/01/03. Involutional and chronic small vessel ischemic changes. No ICH, mass effect, or edema. No skull fracture. Mucosal thickening left sphenoid sinus. Radiologist: Demetria Jiménez M.D. Study ready at 22:06 and initial results transmitted at 22:19 *This report constitutes a preliminary interpretation only. Non-acute findings f elt to be unrelated to the clinical presentation may not be discussed in this report. The study will be interpreted and a final report will be generated by the local Radiologist the following shift. To reach the hospital radiology department call [phone]. If a discrepancy is found between the preliminary and final interpretations of this study, please notify us via our Client Portal at [email or web address], under [email or web address] Exams.You can also fax this report with a description of the discrepancy, or include the final report, to our daytime fax number [phone].If faxing, please indicate the severity of discrepancy using one of the following categories: [ ] 1 - Agree/Informational [ ] 2 - Unlikely to Affect Management [ ] 3 - Possible Eventual Change of Management [ ] 4 - Probable Immediate Change of Management For all other patient related information, please fax us at [phone]. [id number] [facility] Patient: BARBRA GIBBONS (Female) : 35 Status: ER Date: 06/03/20 22:59 Room #: History: heache elev bp dizzyad Slices: 555 Priors: Tech: Chris Estrada @ [phone] Exams: CTA HEAD Contrast: IV Amt: 118 ml optiray Accession Numbers: [id number] Preliminary Findings Only See Final Report For Complete Findings CTA HEAD: Comparison: CT head 06/03/20. Intracranial atherosclerosis. Patent intracranial circulation. No large vessel occlusion. No aneurysm. Radiologist: Demetria Jiménez M.D. Study ready at 23:03 and initial results transmitted at 23:14 *This report constitutes a preliminary interpretation only. Non-acute findings felt to be unrelated to the clinical presentation may not be discussed in this report. The study will be interpreted and a final report will be generated by the local Radiologist the following shift. To reach the hospital radiology department call [phone]. If a discrepancy is found between the preliminary and final interpretations of this study, please notify us via our Client Portal at [email or web address] [email or web address].You can also fax this report with a description of the discrepancy, or include the final report, to our daytime fax number [phone].If faxing, please indicate the severity of discrepancy using one of the following categories: [ ] 1 - Agree/Informational [ ] 2 - Unlikely to Affect Management [ ] 3 - Possible Eventual Change of Management [ ] 4 - Probable Immediate Change of Management For all other patient related information, please fax us at [phone]. [id number] [facility] Patient: BARBRA GIBBONS (Female) : 35 Status: ER Date: 06/03/20 22:59 Room #: History: heache elev bp dizzyad Slices: 706 Priors: Tech: Chris Estrada @ [phone] Exams: CTA NECK Contrast: IV Amt: 118 ml optiray Accession Numbers: [id number] Preliminary Findings Only See Final Report For Complete Findings CTA NECK: Surgical clips adjacent to the right carotid bifurcation. Bilateral common carotid arteries are normal in caliber. Right ICA is normal in caliber. Mild atherosclerotic stenosis of the proximal left ICA. Bilateral vertebral arteries are normal in caliber. Bovine aortic arch anatomy. Radiologist: Demetria Jiménez M.D. Study ready at 23:03 and initial results transmitted at 23:14 *This report constitutes a preliminary interpretation only. Non-acute findings felt to be unrelated to the clinical presentation may not be discussed in this report. The study will be interpreted and a final report will be generated by the local Radiologist the following shift. To reach the hospital radiology department call [phone]. If a discrepancy is found between the preliminary and final interpretations of this study, please notify us via our Client Portal at [email or web address].You can also fax this report with a description of the discrepancy, or include the final report, to our daytime fax number [phone].If faxing, please indicate the severity of discrepancy using one of the following categories: [ ] 1 - Agree/Informational [ ] 2 - Unlikely to Affect Management [ ] 3 - Possible Eventual Change of Management [ ] 4 - Probable Immediate Change of Management For all other patient related information, please fax us at [phone]. [id number] Code Status & VTE Plan Code Status Full code VTE Prophylaxis Plan VTE Prophylaxis will be ordered: Yes PG Care Time/CCT Total # of Minutes Spent Total Time Spent with Patient: Total time spent is greater than 50% in coordination of care (as documented) at patient's floor/unit and/or counseling patient: Coding Level of Care Code 24874 OBS Care - Level 3 Diagnoses TIA (transient ischemic attack) G45.9 CAD (coronary artery disease) I25.10 Hypertension I10 Hypertension type: unspecified AF (paroxysmal atrial fibrillation) I48.0 Carotid artery stenosis I65.29 Headache R51 Headache chronicity pattern: acute headache Headache type: unspecified Intractability: not intractable Hypercholesterolemia E78.00 Acid reflux disease K21.9 (1) Hypertension Hypertension type: unspecified Qualified Code(s): I10 - Essential (primary) hypertension (2) Headache Headache chronicity pattern: acute headache Headache type: unspecified Intractability: not intractable Qualified Code(s): R51 - Headache
[2020-06-04] MEDS ORDERED: MAGNESIUM HYDROXIDE SUSP 30 ML UDC PO PRN (00:35)
[2020-06-04] MEDS ORDERED: ALUMINUM/MAGNESIUM SUSP 30 ML UDC PO PRN (00:35)
[2020-06-04] MEDS ORDERED: FLUTICASONE PROPIONATE NA SPR 16 GM BTL PRN (00:35)
[2020-06-04] MEDS ORDERED: LIGHT MINERAL OIL MINERAL OIL OP SCH (00:35)
[2020-06-04] MEDS ORDERED: NITROGLYCERIN SL 0.4 MG/TAB TAB SL PRN (00:35)
[2020-06-04] MEDS ORDERED: ACETAMINOPHEN 325 MG TAB PO PRN ×2 (00:35→01:27)
[2020-06-04] MEDS ORDERED: ONDANSETRON INJ 2 MG/ML 2 ML VIAL IV PRN (00:35)
[2020-06-04] MEDS ORDERED: PHARMACIST DISCHARGE MED REC CONSULT PRN (00:35)
[2020-06-04] MEDS ORDERED: SUCRALFATE 1 GM/10 ML UDC PO PRN (01:23)
[2020-06-04] MEDS ORDERED: TRAMADOL HCL 50 MG TABLET PO PRN (01:25)
[2020-06-04 06:35] LABS: Basophils # (auto) 0.04 K/uL (0-0.2); Basophils % (auto) 0.8 %; Eosinophils # (auto) 0.05 K/uL (0-0.5); Hematocrit (blood only) 35.7 % (37-47); Hemoglobin 11.9 g/dL (12.0-16.0); Mean Corpuscular Hemoglobin 31.6 pg (25-34); Mean Corpuscular Hgb Conc 33.3 g/dL (32-36); Mean Corpuscular Volume 94.7 fL (80-100); Mean Platelet Volume 10.5 fL (7.4-10.4); Monocytes # (auto) 0.76 K/uL (0.11-0.59); Monocytes % (auto) 14.7 %; Neutrophils # (auto) 2.82 K/uL (1.4-6.5); Neutrophils % (auto) 54.5 %; Platelet Count 195 K/uL (130-400); RDW Coefficient of Variation 12.7 % (11.5-14.5); RDW Standard Deviation 43.4 fL (36.4-46.3); Red Blood Count 3.77 M/uL (4.2-5.4); White Blood Count 5.17 K/uL (4.8-10.8)
[2020-06-04 06:49] LABS: INR 1.1 (0.9-1.1); Prothrombin Time 11.5 Seconds (9.0-12.0)
[2020-06-04 07:03] LABS: Estimated Average Glucose 140 mg/dl; Hemoglobin A1C 6.5 % (4.5-5.6)
--- NOTE | 2020-06-04 07:05 | CT Scan Report ---
CT head/brain wo con CLINICAL HISTORY: headache COMPARISON STUDY: 12/11/2016 TECHNIQUE: Axial CT of the brain is performed from the vertex to the skull base. IV contrast was not administered for this examination. A dose lowering technique was utilized adhering to the principles of ALARA. CT DOSE: 539.96 mGy.cm FINDINGS: No intra or extra-axial mass lesions are visualized. There is no CT evidence of acute cortical infarc tion. There is no evidence of midline shift. There is no acute hemorrhage. No calvarial fractures ar e visualized. There are patchy white matter hypodensities likely on a small vessel basis. There is no evidence of pathologic ventricular dilatation. There is moderate left sphenoid sinus mucosal thickening IMPRESSION: No acute intracranial findings ACT 112: Negative or not required by law. Electronically signed by: Wood Geiger M.D. 06/04/2020 7:03 AM
[2020-06-04 07:06] LABS: Albumin Level 3.1 gm/dl (3.4-5.0); BUN Creatinine Ratio 18.7 (10-20); Calcium 8.8 mg/dl (8.5-10.1); Creatinine Clr Calc Pharmacy 44.2 ml/min; Est GFR (African American) 61.7; Est GFR (Non-African American) 53.3; Magnesium 1.8 mg/dl (1.8-2.4); Potassium 3.9 mmol/L (3.5-5.1)
[2020-06-04 07:13] LABS: Albumin Globulin Ratio 0.8 (0.9-2); Bilirubin,Total 0.7 mg/dl (0.2-1); Globulin 3.8 gm/dl (2.5-4.0); Total Protein 6.9 gm/dl (6.4-8.2); Troponin I 0.125 ng/ml (0-0.045)
--- NOTE | 2020-06-04 07:25 | CT Scan Report ---
CT angio neck with con CLINICAL HISTORY: dizzy, Headache POSSIBLE STROKE COMPARISON STUDY: None TECHNIQUE: CT angiography was performed from the aortic arch to the skull base. MIP imaging was perfo rmed. The patient was scanned in a dynamic helical fashion during intravenous administration of 118 c c of Optiray 320. A dose lowering technique was utilized adhering to the principles of ALARA. CT DOSE: 574.27 mGy.cm Technique: CT angiogram of the carotid and vertebral arteries was obtained using intravenous contrast and 3-D reconstruction. NASCET criteria was utilized. Findings: The right carotid revealed no evidence of aneurysm and no evidence of dissection. There is no evidenc e of hemodynamic significant stenosis. There is mild to moderate intimal thickening of the common car otid artery. There is moderate calcific atheromatous plaque at the level of the left carotid bifurcation. This res ults in a nonhemodynamically significant 25% diameter narrowing of the internal carotid. There is no evidence of hemodynamically significant vertebral stenosis. There is no evidence of verte bral dissection. There is a common origin of the right innominate and left common carotid artery. IMPRESSION: No evidence of hemodynamically significant carotid or vertebral artery stenosis. No evidence of disse ction. ACT 112: Negative or not required by law. Electronically signed by: Wood Geiger M.D. 06/04/2020 7:24 AM
--- NOTE | 2020-06-04 07:59 | CT Scan Report ---
CT ANGIOGRAM OF THE BRAIN CLINICAL HISTORY: Headache. Dizziness. COMPARISON STUDY: Unenhanced CT of the brain performed the same day 06/03/2020. TECHNIQUE: Following the IV administration of 118 cc of Optiray 320, CT angiogram of the brain was pe rformed from the skull base to the vertex. Images are reviewed in the axial, sagittal, and coronal pl anes. 3-D MIPS images are created and assessed. IV contrast was administered without complication. A dose lowering technique was utilized adhering to the principles of ALARA. FINDINGS: Brain parenchyma: There is age-related involutional change noting moderate subcortical and periventri cular microangiopathic disease. There is no hemorrhage, mass effect, or evidence of acute territorial ischemia by CT criteria. There is no evidence of enhancing mass lesion on the angiogram phase images . No extra-axial fluid collection is seen. Amaya-white matter differentiation is preserved. Ventricles, sulci, and cisterns: Prominent secondary to involutional change. CT angiogram of the brain: There is atherosclerotic calcification of the cavernous carotid arteries. The internal carotid arteries are widely patent, as are the anterior and middle cerebral arteries. Th e vertebrobasilar system and posterior cerebral arteries are widely patent. The vertebral arteries ar e codominant. There is no aneurysm, high-grade stenosis, or focal vessel cutoff identified throughout the intracranial circulation. Dural sinuses: Clear as visualized. Orbits: The bony orbits are intact. The orbital contents are normal as visualized noting bilateral oc ular lens implants. Sinuses and mastoids: The visualized paranasal sinuses are clear. The mastoid air cells are well pneu matized. Calvarium: Unremarkable. IMPRESSION: 1. There is no hemorrhage, mass effect, or evidence of acute territorial ischemia by CT criteria noti ng angiographic phase technique. 2. Unremarkable CT angiogram of the brain. ACT 112: Negative or not required by law. Electronically signed by: Francisco Cervantes M.D. 06/04/2020 7:57 AM
[2020-06-04] MEDS: VITAMIN B COMPLEX TAB PO SCH (08:55)
[2020-06-04] MEDS: LOSARTAN POTASSIUM 50 MG TAB PO SCH (08:56)
[2020-06-04] MEDS: PANTOprazole 40 MG TAB PO SCH (08:56)
[2020-06-04] MEDS: ASPIRIN 81 MG ECTAB PO SCH (08:56)
[2020-06-04] MEDS: MAGNESIUM OXIDE 400 MG TAB PO SCH (08:56)
[2020-06-04] MEDS: GABAPENTIN 100 MG CAP PO SCH ×2 (08:56→14:13)
[2020-06-04] MEDS: CEROVITE ADV FORMULA TAB PO SCH ×2 (08:56→20:25)
[2020-06-04] MEDS: CETIRIZINE HCL 10 MG TABLET PO SCH (08:57)
[2020-06-04] MEDS ORDERED: NON-FORMULARY MEDICATION (Coenzyme Q10 100 MG) PO SCH (09:00)
[2020-06-04] MEDS ORDERED: NON-FORMULARY MEDICATION (Turmeric Root Extract 500 MG) PO SCH (09:00)
[2020-06-04] MEDS ORDERED: NON-FORMULARY MEDICATION (Glucos Sul 2kcl-Msm-Chond-C-Mn [Glucosamine Chondroitin] 1 CAP) PO SCH (09:00)
--- NOTE | 2020-06-04 11:41 | XCELERA ---
[id number] \\[id number]_[id number]
--- NOTE | 2020-06-04 14:30 | Neurology Consultation ---
Date of Consultation June 04, 2020 Assessment & Plan (1) Headache: (2) Hypertension: (3) Unsteady: (4) H/O TIA (transient ischemic attack) and stroke: Samira Juan is an 85 yo woman w/ PMH of pAfib on xarelto, HTN, HLD, h/o TIA and stroke without residual deficits, CAD, carotid artery stenosis s/p R CEA, aortic stenosis, GERD, arthritis, h/o breast cancer, RLS, and lumbar spinal stenosis who p/t [facility] with headache and unsteadiness. Symptom localization: posterior circulation Stroke mechanism: cardioembolic Stroke WorkUp: - CT head: no hemorrhage or hypodenisities noted - CTA head/neck: no LVO, high-grade stenosis or aneurysm, mild left ICA stenosis secondary to atherosclerotic plaque. - MRI brain: pending - TTE: EF 60-65%, moderate LVH, severe aortic stenosis - Telemetry: pending - A1c: 6.5 - FLP: 93 - Troponin, TSH: elevated, WNL Stroke Management: - Acute treatment: ASA - Continuous cardiac monitoring - Vitals, Neurochecks, NIHSS per unit routine - BP parameters: SBP CAP 180, restart home anti-hypertensives for goal normotension - Obtain MRI brain to evaluate stroke burden - Consult speech, PT, OT for supportive management - Will insurance counselor concerning stroke education, smoking cessation, healthy diet, physical activity, weight loss - Follow up with PCP for assistance with outpatient goals (BP <130/80, LDL <70, A1c <7) - Follow up in neurology clinic in 6-8 weeks with [facility] Secondary Stroke Prevention: - Antiplatelet: ASA 81mg po daily (given cardiac risk factors) - Anticoagulation: recommend transitioning to warfarin given valvular AFib - Statin: consider fenofibrate or other alternative to statins given h/o statin intolerance HTN: - BP parameters, as above - Restart home medications with goal of lowering BP to normotension over next 3- 4 days FEN/GI: - Diet: Cardiac HH diet and PO meds given absence of bulbar signs or symptoms - Monitor lytes and replete PRN Glucose Control: - Sliding scale insulin and accuchecks per primary team to avoid hyperglycemia # Headache: could have been 2/2 uncontrolled HTN. - continue home magnesium 250mg daily. Can increase coQ10 to 100mg tid for headache prevention - would given tylenol 1000mg IV/zofran 4mg IV/magnesium 500mg IV q12h to help with her current headache (though she is relatively close to her baseline in ter ms of severity) Thank you for this interesting consult. Plan of care was discussed with primary team. Please call with any questions. History of Present Illness Attending Physician: Samuel Olsen MD History of Present Illness Samira Juan is an 85 yo woman w/ PMH of pAfib on xarelto, HTN, HLD, h/o TIA and stroke without residual deficits, CAD, carotid artery stenosis s/p R CEA, aortic stenosis, GERD, arthritis, h/o breast cancer, RLS, and lumbar spinal stenosis who p/t [facility] with headache and unsteadiness. In the ED, patient was afebrile, blood pressure 199/94, heart rate 86, respiratory rate 20, satting 97% on room air. Labs show WBC 6.56, hemoglobin 14.5, platelets 218, sodium 141, potassium 3.9, BUN 20, creatinine 1.19, glucose 83, INR 1.0, GFR 41.6, calcium 9.8, magnesium 2.0, LFTs within normal, troponin mildly elevated 0.118, TSH within normal, UA no infection. Imaging independently reviewed. CT head shows no hemorrhage or hypodensity, mild generalized atrophy, mild to moderate small vessel disease. CTA head and neck shows no LVO, high-grade stenosis or aneurysm, mild left ICA stenosis secondary to atherosclerotic plaque. Chest x-ray shows stable mild cardiomegaly. TTE shows EF 60-65%, moderate LVH, severe aortic stenosis. A1c 6.5, LDL 93. On examination today, she reports that she has been having gait difficulties for the last year or so but that it subacutely worsened on the day of admission. She noted around the time that she also had pain in her neck and occiput, as well as pressure sensation around the eyes similar to prior "sinus headaches". She reports having a long history of migraines when she was younger and more recently these sinus headaches for which she usually just takes Tylenol as needed. Denies any new numbness, tingling, weakness, vision changes or symptoms consistent with ataxia. She endorses having a current headache at this time that is 5 out of 10 in severity and associated with photophobia and phonophobia that she reports having at baseline. Allergies Allergy/AdvReac Type Severity Reaction Status Date / Time levofloxacin Allergy Unknown muscle and Verified 06/03/20 21:33 joint pain tetanus toxoid, adsorbed Allergy Unknown CHEST Verified 06/03/20 21:33 PAIN, RESTLESSNESS atorvastatin AdvReac Intermediate ELEVATED Verified 06/03/20 21:33 OPK LEVEL PER FAMILY PRACTICE NOTES ON CHART tetracycline AdvReac Unknown ESOPHAGEAL Verified 06/03/20 21:33 EROSION Home Medications Home Medications Medication Instructions Recorded Confirmed Type calcium carbonate 600 mg calcium 600 mg PO QPM tab 04/24/19 06/03/20 History (1,500 mg) tablet vitamin B complex 1 tab PO QAM 04/24/19 06/03/20 History aspirin 81 mg tablet,delayed 81 mg PO QAM tab 04/27/19 06/03/20 History release coenzyme Q10 100 mg capsule 100 mg PO DAILY cap 04/27/19 06/03/20 History fluticasone propionate 50 2 sprays INTNAS DAILY PRN ml 10/05/19 06/03/20 History mcg/actuation nasal spray,suspension sucralfate 100 mg/mL oral 10 ml PO QID PRN #420 ml 11/08/19 06/03/20 Rx suspension albuterol sulfate 90 mcg/actuation 2 puffs INH Q6H PRN #18 gm 01/01/20 06/03/20 Rx aerosol inhaler gabapentin 100 mg capsule See Rx Instructions PO DAILY cap 03/19/20 06/03/20 History tramadol 37.5 mg-acetaminophen 325 1 tab PO Q6H PRN #100 tab 03/19/20 06/03/20 Rx mg tablet Lactobacillus rhamnosus GG 1 cap PO QPM 06/03/20 06/03/20 History [Culturelle] atenolol 25 mg PO QPM 06/03/20 06/03/20 History cetirizine [Zyrtec] 10 mg PO QAM 06/03/20 06/03/20 History esomeprazole magnesium [Nexium] 40 mg PO QAM 06/03/20 06/03/20 History glucos sul [id number] 1 cap PO BID 06/03/20 06/03/20 History [Glucosamine Chondroitin] light mineral oil-mineral oil 1 drp OPHTHALMIC (EYE) UD 06/03/20 06/03/20 History [Soothe XP] losartan 100 mg PO QAM 06/03/20 06/03/20 History magnesium 250 mg PO QAM 06/03/20 06/03/20 History omega-3 fatty acids [[place] 3 Fish 500 mg PO QPM 06/03/20 06/03/20 History Oil] rivaroxaban 20 mg PO QPM 06/03/20 06/03/20 History rosuvastatin 10 mg PO QPM 06/03/20 06/03/20 History triamterene-hydrochlorothiazid 1 tab PO DAILY 06/03/20 06/03/20 History [Maxzide-25mg] turmeric root extract 500 mg PO QAM 06/03/20 06/03/20 History vit C-vit H-lmykmk-kmkk-lutein 1 cap PO BID 06/03/20 06/03/20 History [PreserVision Lutein] Patient History Medical History Acid reflux disease AF (paroxysmal atrial fibrillation) Allergic rhinitis Aortic stenosis CAD (coronary artery disease) Carotid artery stenosis Cystocele, midline Degenerative lumbar spinal stenosis EKG, abnormal Generalized osteoarthritis of multiple sites Glaucoma H/O TIA (transient ischemic attack) and stroke History of breast cancer Hypercholesterolemia Hypertension Jerking movements of extremities Mitral regurgitation Pessary maintenance Piriformis syndrome Postinflammatory pulmonary fibrosis Restless legs syndrome Right tennis elbow Trochanteric bursitis, right hip Surgical History H/O dilation and curettage H/O eye surgery History of bilateral knee replacement History of esophagogastroduodenoscopy (EGD) S/P appendectomy S/P breast lumpectomy S/P cardiac cath S/P carotid endarterectomy S/P cataract extraction S/P cholecystectomy S/P colonoscopy S/P hysterectomy S/P knee replacement S/P sinus surgery S/P tubal ligation Family History Other Heart disease Hypertension Pancreatic cancer Prostate cancer Social History Smoking Status: Never smoker Hx Alcohol Use: No Hx Substance Use: No Preferred Language: Citizen Of [place] Communication Ability: Effective Visual Impairment: Limited Hearing Ability: Normal Accredited Farm Manager Required: No Beliefs That Will Affect Care: None marital status: / Current Living Situation: Alone current occupational status: retired Other Information That Helps Us Care for You: No Feels Safe at Home: Yes Safety Concerns: Feels Safe At This Time Seatbelt Use: always Review of Systems Review of Systems: 14 point review of systems completed and negative except as in HPI. Exam (Neuro) Physical Exam: General Exam: GEN: NAD, sitting in chair HEENT: No conjunctival injection, no rhinorrhea CV: RRR on monitor, no significant edema. PULM: Nonlabored respirations on room air. Neuro Exam: MS: Awake and Alert. Oriented to person, place, and month/year. Speech fluent and appropriate without dysarthria or paraphasic errors. Language intact including naming, comprehension, repetition. Cognition and memory grossly intact. Attention intact. No neglect. CN: Visual ivy full, + blink to threat bilaterally. No extinction to double simultaneous stimuli. Normal fundoscopic exam. PERRLA OU. EOMI without nystagmus. Facial sensation intact to LT. Facial muscles full and symmetric. Hearing intact to finger rub bilaterally. Uvula midline with symmetric palatal elevation. Shoulder shrug normal. Tongue midline. MOTOR: Normal bulk and tone. No pronator drift. BUE strength 5/5 at deltoids, biceps, triceps, wrist flexors and extensors, and finger flexors bilaterally. BLE strength 5/5 at iliopsoas, hamstrings, quadriceps, tibialis anterior, and gastrocnemius bilaterally. REFLEXES: 1+ at biceps, triceps, brachioradialis, absent patella, and absent Achilles bilaterally. Flexor plantar responses bilaterally. SENSORY: Intact to LT throughout and vibration in BUEs/BLEs at the knees, no extinction to double simultaneous stimuli. COORDINATION: No dysmetria or ataxia on [id number]-qr-lfmy bilaterally. Normal Senia bilaterally. GAIT: Slightly broad based gait with normal arm swing. Normal Romberg. NIH STROKE SCALE 1A. Level of Consciousness (0-3) = 0 1B. LOC Questions (0-2) = 0 1C. LOC Commands (0-2) = 0 2. Best Horizontal Gaze (0-2) = 0 3. Visual Ivy (0-3) = 0 4. Facial Palsy (0-3) = 0 5. Motor Arm Right (0-4) = 0 Left (0-4) = 0 6. Motor Leg Right (0-4) = 0 Left (0-4) = 0 7. Limb Ataxia (0-2) = 0 8. Sensory (0-2) = 0 9. Best Language (0-3) = 0 10. Dysarthria (0-2) = 0 11. Extinction and Inattention (0-2) = 0 NIHSS TOTAL = 0 Results & Data ([facility]) Vital Signs (Past 12 Hours) Vital Signs Temp Pulse Resp BP Pulse Ox 06/04/20 12:08 36.7 C 75 18 175/65 H 95 06/04/20 08:14 36.6 C 68 16 174/77 H 95 06/04/20 03:00 36.8 C 68 21 160/66 H 94 PG Care Time/CCT Total # of Minutes Spent Total Time Spent with Patient: Total time spent is greater than 50% in coordination of care (as documented) at patient's floor/unit and/or counseling patient: Coding Level of Care Code 71674 Initial Inpt Care Lvl 3 Diagnoses Headache R51 Headache chronicity pattern: acute headache Headache type: unspecified Intractability: not intractable Hypertension I10 Hypertension type: unspecified Unsteady R26.81 H/O TIA (transient ischemic attack) and stroke Z86.73 (1) Headache Headache chronicity pattern: acute headache Headache type: unspecified Intractability: not intractable Qualified Code(s): R51 - Headache (2) Hypertension Hypertension type: unspecified Qualified Code(s): I10 - Essential (primary) hypertension
--- NOTE | 2020-06-04 15:11 | Electrocardiogram Report ---
Test Reason : Blood Pressure : / mmHG Vent. Rate : 075 BPM Atrial Rate : 075 BPM P-R Int : 142 ms QRS Dur : 110 ms QT Int : 414 ms P-R-T Axes : 052 -19 037 degrees QTc Int : 462 ms Normal sinus rhythm Possible Left atrial enlargement Incomplete right bundle branch block Borderline ECG When compared with ECG of 12-DEC-2016 06:32, No significant change was found Confirmed by Ildefonso Donohue ([id number]) on 06/04/2020 3:11:20 PM Referred By: REFERRED SELF Confirmed By:Ildefonso Donohue
--- NOTE | 2020-06-04 15:14 | Electrocardiogram Report ---
Test Reason : Blood Pressure : / mmHG Vent. Rate : 064 BPM Atrial Rate : 064 BPM P-R Int : 158 ms QRS Dur : 122 ms QT Int : 448 ms P-R-T Axes : 053 -19 045 degrees QTc Int : 462 ms Normal sinus rhythm RSR' or QR pattern in V1 suggests right ventricular conduction delay Minimal voltage criteria for LVH, may be normal variant ( [employer] product ) Borderline ECG When compared with ECG of 03-JUN-2020 20:35, (unconfirmed) No significant change was found Confirmed by Ildefonso Donohue ([id number]) on 06/04/2020 3:14:10 PM Referred By: REFERRED SELF Confirmed By:Ildefonso Donohue
--- NOTE | 2020-06-04 17:32 | Hospitalist Progress Note ---
Date of Service June 04, 2020 Assessment & Plan (1) TIA (transient ischemic attack): Status post right CEA by Dr. Perez at [facility] in 2016. Left carotid bruit on examination, with known 50 to 60% stenosis on recent study at [facility]. - Continue aspirin and Xarelto. - Consulted PT/OT/speech/CM - Seen by neurology - Recommend MRI; delayed slightly due to checking on surgical clips, but these were approved today. - Also will consider offering her fenofibrate - A1c is 6.5%; fasting lipid is 93. (2) Headache: Consistent with prior headaches. - Will give Tylenol, Zofran, and magnesium per neurology (3) CAD (coronary artery disease): No chest pain to indicate ischemia. - Continue aspirin 81 mg daily, atenolol 25 mg daily, continue losartan & triamterene/HCTZ - Continue rosuvastatin 10 mg daily (4) Hypertension: See above (5) AF (paroxysmal atrial fibrillation): HR presently in the 70s. - Continue Xarelto 20 mg daily - Continue beta-farzaneh as above (6) Carotid artery stenosis: S/p right CEA at [place] in 04/2020. CTA neck this admission shows non- hemodynamically significant 25% of left carotid artery. - No inpatient needs (7) Acid reflux disease: Continue Nexium or substitute daily (8) DVT prophylaxis: Xarelto as above Admission and Anticipated Discharge Date Admission Date: June 03, 2020 Subjective Feeling very well today. Reports no fevers/chills, chest pain, shortness of breath, abdominal pain, nausea, or vomiting. Physical Exam Constitutional: WD/WN, vitals as above Eyes: EOM intact bilaterally; no conjunctival abnormality ENMT: external ear and nose normal, oropharynx normal Neck: trachea midline, no thyromegaly normal visual inspection Respiratory: normal respiratory effort, lungs clear to auscultation no respiratory distress Cardiovascular: RRR, no murmur, no edema Gastrointestinal (Abdomen): Inspection/Auscultation: abdomen normal to inspection; abdomen not distended Musculoskeletal: no cyanosis or clubbing, extremities motor strength 5/5 Skin: no rashes, warm and dry Neurologic: moves all extremities and awake Psychiatric: Orientation: alert, oriented to person and cooperative Results & Data Results & Data ([facility]) Vital Signs (Past 12 Hours) Vital Signs Temp Pulse Resp BP Pulse Ox 06/04/20 15:29 36.6 C 78 19 156/72 H 97 06/04/20 12:08 36.7 C 75 18 175/65 H 95 06/04/20 08:14 36.6 C 68 16 174/77 H 95 PG Care Time/CCT Total # of Minutes Spent Total Time Spent with Patient: Total time spent is greater than 50% in coordination of care (as documented) at patient's floor/unit and/or counseling patient: Coding Level of Care Code 70687 Subseq Hosp Care Lvl 3 Diagnoses TIA (transient ischemic attack) G45.9 Headache R51 Headache chronicity pattern: acute headache Headache type: unspecified Intractability: not intractable CAD (coronary artery disease) I25.10 Hypertension I10 Hypertension type: unspecified AF (paroxysmal atrial fibrillation) I48.0 Carotid artery stenosis I65.29 Acid reflux disease K21.9 DVT prophylaxis Z29.9 (1) Hypertension Hypertension type: unspecified Qualified Code(s): I10 - Essential (primary) hypertension (2) Headache Headache chronicity pattern: acute headache Headache type: unspecified Intractability: not intractable Qualified Code(s): R51 - Headache
[2020-06-04] MEDS ORDERED: ACETAMINOPHEN 1,000 MG/100 ML VIAL IV STA (17:40)
[2020-06-04] MEDS ORDERED: ondansetron HCL 8 MG in DEXTROSE 5% 50 ML IV ONE (18:00)
--- NOTE | 2020-06-04 18:14 | Magnetic Resonance Report ---
MR brain wo con HISTORY: 85 years-old Female Possible CVA . Acute strokelike symptoms COMPARISON: CT head, CTA head and neck 06/03/2020, brain MRI 04/23/2016 TECHNIQUE: Multiplanar multisequence MRI of the brain was obtained without the use of IV contrast. FINDINGS: No restricted diffusion to suggest acute or subacute infarct. Midline structures including the corpus callosum, brainstem, optic chiasm, pituitary and pineal glands appear unremarkable the sagittal T1 s eries. No cerebellar tonsillar herniation. No acute intracranial hemorrhage, midline shift, abnormal extra-axial collection, hydrocephalus or in tracranial mass. There is slow venous flow within the left transverse sinus. Cerebral venous sinuses are patent. Age-related involutional changes. Moderate to extensive T2/FLAIR hyperintensities about t he white matter. Major vascular flow voids are patent. Mastoid air cells and visualized paranasal sin uses are generally clear. Prior bilateral lens replacement. The skull and soft tissues are unremarkab le. IMPRESSION: 1. No acute intracranial abnormality, specifically there is no evidence of acute or subacute infarct. 2. Age-related involutional changes with moderate to extensive T2/FLAIR white matter hyperintensities suggestive of probable chronic microvascular ischemic disease. ACT 112: Negative or not required by law. The above report was generated using voice recognition software. It may contain grammatical, syntax o r spelling errors. Electronically signed by: Johnny Aguilar M.D. 06/04/2020 6:13 PM
[2020-06-04] MEDS ORDERED: MAGNESIUM SULFATE / D5W 1 GM/100 ML BAG IV ONE (18:15)
[2020-06-04] MEDS ORDERED: ROSUVASTATIN CALCIUM 10 MG TAB PO SCH (21:00)
[2020-06-04] MEDS ORDERED: GABAPENTIN 100 MG CAP PO SCH (21:00)
[2020-06-04] MEDS ORDERED: CALCIUM 600MG + VIT D 400 IU TAB PO SCH (21:00)
[2020-06-04] MEDS ORDERED: RIVAROXABAN 20 MG TAB PO SCH (21:00)
[2020-06-04] MEDS ORDERED: ATENOLOL 25 MG TABLET PO SCH (21:00)
[2020-06-04] MEDS ORDERED: LACTOBACILLUS ACIDOPHILUS (FLORANEX) TAB PO SCH (21:00)
[2020-06-04] MEDS ORDERED: OMEGA-3 (PURIFIED FISH OIL) 1 GM CAP PO SCH (21:00)
[2020-06-05 06:07] LABS: Basophils # (auto) 0.05 K/uL (0-0.2); Basophils % (auto) 1.1 %; Eosinophils # (auto) 0.06 K/uL (0-0.5); Eosinophils % (auto) 1.4 %; Hematocrit (blood only) 38.5 % (37-47); Hemoglobin 12.5 g/dL (12.0-16.0); Lymphocytes # (auto) 1.07 K/uL (1.2-3.4); Lymphocytes % (auto) 24.4 %; Mean Corpuscular Hemoglobin 30.7 pg (25-34); Mean Corpuscular Hgb Conc 32.5 g/dL (32-36); Mean Corpuscular Volume 94.6 fL (80-100); Mean Platelet Volume 10.5 fL (7.4-10.4); Monocytes # (auto) 0.75 K/uL (0.11-0.59); Monocytes % (auto) 17.1 %; Neutrophils # (auto) 2.46 K/uL (1.4-6.5); Platelet Count 196 K/uL (130-400); RDW Coefficient of Variation 12.7 % (11.5-14.5); RDW Standard Deviation 43.7 fL (36.4-46.3); Red Blood Count 4.07 M/uL (4.2-5.4); White Blood Count 4.39 K/uL (4.8-10.8)
[2020-06-05 06:19] LABS: INR 1.4 (0.9-1.1); Partial Thromboplastin Ratio 1.5; Partial Thromboplastin Time 41.5 Seconds (21.0-31.0); Prothrombin Time 14.6 Seconds (9.0-12.0)
[2020-06-05 06:42] LABS: Albumin Level 3.1 gm/dl (3.4-5.0); BUN Creatinine Ratio 16.1 (10-20); Calcium 10.1 mg/dl (8.5-10.1); Creatinine Clr Calc Pharmacy 30.2 ml/min; Est GFR (African American) 38.9; Est GFR (Non-African American) 33.6; Magnesium 2.1 mg/dl (1.8-2.4); Potassium 3.7 mmol/L (3.5-5.1)
[2020-06-05 06:45] LABS: Albumin Globulin Ratio 0.8 (0.9-2); Bilirubin,Total 0.6 mg/dl (0.2-1); Globulin 3.8 gm/dl (2.5-4.0); Total Protein 6.9 gm/dl (6.4-8.2)
[2020-06-05] MEDS: GABAPENTIN 100 MG CAP PO SCH (08:33)
[2020-06-05] MEDS: CEROVITE ADV FORMULA TAB PO SCH (08:33)
[2020-06-05] MEDS: LOSARTAN POTASSIUM 50 MG TAB PO SCH (08:33)
[2020-06-05] MEDS: MAGNESIUM OXIDE 400 MG TAB PO SCH (08:33)
[2020-06-05] MEDS: PANTOprazole 40 MG TAB PO SCH (08:33)
[2020-06-05] MEDS: ASPIRIN 81 MG ECTAB PO SCH (08:33)
[2020-06-05] MEDS: CETIRIZINE HCL 10 MG TABLET PO SCH (08:33)
[2020-06-05] MEDS: VITAMIN B COMPLEX TAB PO SCH (08:33)
[2020-06-05] MEDS ORDERED: STROKE PATIENT DISCHARGE STA (09:47)
--- NOTE | 2020-06-05 11:22 | Pharmacy Report ---
Pharmacist Stroke Counseling - Date of Service June 05, 2020 - Scope: Pharmacy has been consulted to provide medication discharge counseling for this patient admitted with [ischemic stroke] [hemorrhagic stroke] [transient ischemic attack] as per the Pharmacist Discharge Counseling for Stroke Patients Pr otocol. - Medications on Discharge: Home Medications Medication Instructions Recorded Confirmed calcium carbonate 600 mg calcium 600 mg PO QPM tab 04/24/19 06/03/20 (1,500 mg) tablet vitamin B complex 1 tab PO QAM 04/24/19 06/03/20 aspirin 81 mg tablet,delayed 81 mg PO QAM tab 04/27/19 06/03/20 release coenzyme Q10 100 mg capsule 100 mg PO DAILY cap 04/27/19 06/03/20 fluticasone propionate 50 2 sprays INTNAS DAILY PRN ml 10/05/19 06/03/20 mcg/actuation nasal spray,suspension gabapentin 100 mg capsule See Rx Instructions PO DAILY cap 03/19/20 06/03/20 Culturelle 1 cap PO QPM 06/03/20 06/03/20 Glucosamine Chondroitin 1 cap PO BID 06/03/20 06/03/20 PreserVision Lutein 1 cap PO BID 06/03/20 06/03/20 Soothe XP 1 drp OPHTHALMIC (EYE) UD 06/03/20 06/03/20 atenolol 25 mg PO QPM 06/03/20 06/03/20 cetirizine [Zyrtec] 10 mg PO QAM 06/03/20 06/03/20 esomeprazole magnesium [Nexium] 40 mg PO QAM 06/03/20 06/03/20 losartan 100 mg PO QAM 06/03/20 06/03/20 magnesium 250 mg PO QAM 06/03/20 06/03/20 omega-3 fatty acids 500 mg PO QPM 06/03/20 06/03/20 triamterene-hydrochlorothiazid 1 tab PO DAILY 06/03/20 06/03/20 [Maxzide-25mg] turmeric root extract 500 mg PO QAM 06/03/20 06/03/20 Medication Instructions Recorded sucralfate 100 mg/mL oral 10 ml PO QID PRN #420 ml 11/08/19 suspension albuterol sulfate 90 mcg/actuation 2 puffs INH Q6H PRN #18 gm 01/01/20 aerosol inhaler tramadol 37.5 mg-acetaminophen 325 1 tab PO Q6H PRN #100 tab 03/19/20 mg tablet rivaroxaban [Xarelto] 15 mg PO PM #30 tab 06/05/20 rosuvastatin 20 mg PO HS #30 tab 06/05/20 - Action: The above medications, specifically ones for stroke treatment/prophylaxis, have been reviewed in detail with the patient and/or patient sales representative education courses(s) prior to discharge. This includes indication, common adverse reactions, drug interactions, and medication administration. Medication counseling has been employed using the teach-back method to ensure understanding. - Outcome: The patient and/or patient sales representative education courses(s) have demonstrated understanding of the medications. Additional comments: Spoke with patient and reviewed medication changes. Talked about dosing increase for rosuvastatin. Patient to monitor for muscle pain with increased dose. Reports intolerance to other statin therapy. Dose decreased for xarelto due to kidney function. States she has not had issues with xarelto in the past. All other medications are the same/no changes. Patient demonstrated understanding of medication changes. No further questions from patient at this time. Thank you for allowing pharmacy to be involved in the care of this patient. Please call [phone] with any additional questions
--- NOTE | 2020-06-05 13:23 | Electrocardiogram Report ---
Test Reason : Blood Pressure : / mmHG Vent. Rate : 060 BPM Atrial Rate : 060 BPM P-R Int : 172 ms QRS Dur : 120 ms QT Int : 446 ms P-R-T Axes : 061 -25 057 degrees QTc Int : 446 ms Normal sinus rhythm Incomplete right bundle branch block Minimal voltage criteria for LVH, may be normal variant Borderline ECG When compared with ECG of 04-JUN-2020 06:49, No significant change was found Confirmed by Ildefonso Donohue ([id number]) on 06/05/2020 1:23:34 PM Referred By: REFERRED SELF Confirmed By:Ildefonso Donohue
--- NOTE | 2020-06-05 18:13 | Discharge Summary ---
Date of Service June 05, 2020 Admission HPI Per Admitting Provider The patient is an 85-year-old female with a past medical history including piriformis syndrome, lumbar degenerative disc disease/stenosis, lumbar radiculopathy with neurogenic claudication, history of TIA and stroke, RLS, postinflammatory pulmonary fibrosis, mild regurgitation, hypertension, hypercholesterolemia, history of breast cancer, carotid artery stenosis status post right CEA at [facility], aortic stenosis, CAD and paroxysmal atrial fibrillation. She presents as noted above. Work-up in the emergency department included a CT of the head without contrast, CTA of head which was negative, and CTA of neck which showed right carotid surgical clips. Principal Diagnosis Presumed TIA Discharge Exam Constitutional WD/WN, vitals as above Eyes EOM intact bilaterally; no conjunctival abnormality ENMT external ear and nose normal, oropharynx normal Neck trachea midline, no thyromegaly normal visual inspection Respiratory normal respiratory effort, lungs clear to auscultation no respiratory distress Cardiovascular RRR, no murmur, no edema Gastrointestinal (Abdomen) Inspection/Auscultation: abdomen normal to inspection; abdomen not distended Musculoskeletal no cyanosis or clubbing, extremities motor strength 5/5 Skin no rashes, warm and dry Neurologic moves all extremities and awake Psychiatric Orientation: alert, oriented to person and cooperative Discharge Data Allergies Allergy/AdvReac Type Severity Reaction Status Date / Time levofloxacin Allergy Unknown muscle and Verified 06/03/20 21:33 joint pain tetanus toxoid, adsorbed Allergy Unknown CHEST Verified 06/03/20 21:33 PAIN, RESTLESSNESS atorvastatin AdvReac Intermediate ELEVATED Verified 06/03/20 21:33 OPK LEVEL PER FAMILY PRACTICE NOTES ON CHART tetracycline AdvReac Unknown ESOPHAGEAL Verified 06/03/20 21:33 EROSION Consultations 06/03/20 23:23 ED Decision to Admit Stat 06/04/20 00:35 Consult Case Management - Discharge Planning Routine Consult Case Management - Discharge Planning Routine Consult Neurology Routine Ordered Studies 06/03/20 20:11 CT angio head w con Urgent CT angio neck with con Urgent CT head/brain wo con Urgent 06/04/20 08:37 MR brain wo con Routine Hospital Course (1) TIA (transient ischemic attack): Status post right CEA by Dr. Perez at [facility] in 2016. Left carotid bruit on examination, with known 50 to 60% stenosis on recent study at [facility]. - MRI brain on 06/04 showed no CVA. - Continue aspirin and Xarelto and rosuvastatin on discharge. I did increase the rosuvastatin to 20 mg. She has had statin intolerance in the past, so if this causes myalgais, she can lower the dose. If she does well, could consider raising it further. - Consulted PT/OT/speech/CM - A1c is 6.5%; fasting lipid is 93. (2) Headache: Consistent with prior headaches. - Will give Tylenol, Zofran, and magnesium per neurology -> Improved headache. (3) CAD (coronary artery disease): No chest pain to indicate ischemia. - Continue aspirin 81 mg daily, atenolol 25 mg daily, continue losartan & triamterene/HCTZ - Continue rosuvastatin 10 mg daily - Increased to 20 mg on discharge. (4) Hypertension: See above (5) AF (paroxysmal atrial fibrillation): HR presently in the 70s. - Continue Xarelto 20 mg daily (Of note, neurology note discusses valvular afib, but aortic stenosis does not qualify as valvular afib. So her DOAC is acceptable for her afib.) - Continue beta-farzaneh as above (6) Carotid artery stenosis: S/p right CEA at [facility] in 04/2020. CTA neck this admission shows non- hemodynamically significant 25% of left carotid artery. - No inpatient needs (7) Acid reflux disease: Continue Nexium or substitute daily (8) DVT prophylaxis: Xarelto as above Total Time Total Time Spent Total Time Spent (In Minutes): 35 Discharge Plan Discharge Items Patient Disposition: Home - Home Health Services Reason For Visit: ELEVATED TROPONIN, WEAKNESS Discharge Diagnosis: Possible TIA ("mini-stroke") Activity: Resume your previous activity Non-emergency contact: Primary Care Provider and Neurologist Call non-emergency contact if: your symptoms worsen Follow-up/Referrals: Cassidy Hernandez MD [Primary Care Provider] - 06/10/20 11:30 am Neli Bear PA-C [[facility] [employer]] - 08/14/20 3:45 pm (Please see Ms. Bear in 1-2 months for neurology follow up.) Diet: Heart Healthy Addtl Attending Provider Instructions: Ms. Juan, You were admitted with weakness that we were concerned was a stroke. Luckily, your MRI didn't show any sign of a stroke. Instead, we think this was maybe a "mini-stroke" also called a TIA. This is a temporary loss of blood flow to the neurons in the brain that does not result in any permanent damage. We are going to try to reduce your risk of any further stroke by optimizing your medications. I know you have had trouble with many statins in the past before settling on Crestor. We will increase your Crestor dose to 20 mg to see if you tolerate that. If so, please have your PCP keep you at the higher dose. If not, you can drop back down to the 10 mg dosing. Finally, we also lowered your Xarelto to a 15mg dose. This better suits your kidney function and reduces your risk of bleeding. Due to the contrast from some of your studies on admission, your kidney function went up a little bit. Please drink plenty of fluids for the next 2-3 days to make your urine light yellow to clearish. Your PCP can check your kidney function next time you see her, but I feel confident it will return to normal in a few days. Pending Studies at Discharge: No Stand-Alone Forms: My [facility]: [place], Smoking Cessation Medications and DC Order Prescriptions: New rosuvastatin 20 mg tablet 20 mg PO HS Qty: 30 RF: 1 Xarelto 15 mg tablet 15 mg PO PM Qty: 30 RF: 0 amoxicillin-pot clavulanate [Augmentin] 500-125 mg tablet 1 tab PO BID Qty: 14 RF: 0 Continued fluticasone propionate [Flonase Allergy Relief] 50 mcg/actuation spray,suspension 2 sprays INTNAS DAILY PRN (Reason: allergy symptoms) RF: 0 sucralfate [Carafate] 100 mg/mL suspension 10 ml PO QID PRN (Reason: nausea) Qty: 420 RF: 0 gabapentin 100 mg capsule See Rx Instructions PO DAILY RF: 0 tramadol-acetaminophen 37.5-325 mg tablet 1 tab PO Q6H PRN (Reason: pain) Qty: 100 RF: 0 vitamin B complex [B Complex 1] tablet 1 tab PO QAM RF: 0 calcium carbonate [Calcium 600] 600 mg calcium (1,500 mg) tablet 600 mg PO QPM RF: 0 aspirin 81 mg tablet,delayed release (DR/EC) 81 mg PO QAM RF: 0 coenzyme Q10 100 mg capsule 100 mg PO DAILY RF: 0 albuterol sulfate 90 mcg/actuation HFA aerosol inhaler 2 puffs INH Q6H PRN (Reason: shortness of breath or wheezing) Qty: 18 RF: 1 cetirizine [Zyrtec] 10 mg Tablet 10 mg PO QAM RF: 0 esomeprazole magnesium [Nexium] 40 mg Capsule,Delayed Release(Dr/Ec) 40 mg PO QAM RF: 0 magnesium 250 mg Tablet 250 mg PO QAM RF: 0 Culturelle 10 billion cell Capsule 1 cap PO QPM RF: 0 omega-3 fatty acids Capsule 500 mg PO QPM RF: 0 PreserVision Lutein 226 mg-200 unit -5 mg-0.8 mg Capsule 1 cap PO BID RF: 0 Glucosamine Chondroitin 550-30-1 mg Capsule 1 cap PO BID RF: 0 atenolol 25 mg tablet 25 mg PO QPM RF: 0 losartan 100 mg tablet 100 mg PO QAM RF: 0 Soothe XP 1-4.5 % Drops 1 drp OPHTHALMIC (EYE) UD RF: 0 turmeric root extract 500 mg Capsule 500 mg PO QAM RF: 0 triamterene-hydrochlorothiazid [Maxzide-25mg] 37.5-25 mg tablet 1 tab PO DAILY RF: 0 Discontinued rivaroxaban 20 mg tablet 20 mg PO QPM RF: 0 Discharge Orders: Discharge Order (Routine); Ordered 06/05/20 Ordered By: Samuel Marquis/Other Patient Handouts: Discharge Instructions for Stroke, Risk Factors for Stroke, ED TIA: Transient Ischemic Attack, A1C Admission Data Admit Date/Time: 06/03/20 23:57 Attending Provider: Samuel Olsen Admit Provider: Daquan Golden Primary Care Provider: Cassidy Hernandez Other Providers: Maurice Birmingham ; Samuel Olsen Other Interventions: Discharge Summary Assessment (RN) Last Done: 06/05/20 11:12 Coding Level of Care Code D/C Day Management >30 mins Diagnoses TIA (transient ischemic attack) G45.9 Headache R51 Headache chronicity pattern: acute headache Headache type: unspecified Intractability: not intractable CAD (coronary artery disease) I25.10 Hypertension I10 Hypertension type: unspecified AF (paroxysmal atrial fibrillation) I48.0 Carotid artery stenosis I65.29 Acid reflux disease K21.9 DVT prophylaxis Z29.9
== END 2020-06-05 12:05 | disposition home health service (06) ==
LOC: 2E 19:42 → ED 19:42 → SUATTDRO 23:57 → 2E 06-04 00:18

== ENCOUNTER 2023-02-10 16:59 | Observation (INO) ==
[2023-02-10] MEDS ORDERED: SODIUM CHLORIDE 0.9% 1000ML 1,000 ML IV STA (18:28)
--- NOTE | 2023-02-10 18:38 | Emergency Department Note ---
Impression & Plan Acute pain of right knee, Ambulatory dysfunction, Hematoma of left thigh ED Provider Note INFORMANT: Patient ED PROVIDER(S): Fady Santana DO CHIEF COMPLAINT: Right knee pain, unable to walk PLAN: Disposition: Admission Outpatient prescription management: none Discussion with: I spoke with the hospitalist, who will see the patient for admission/observation and further evaluation and consultation. MEDICAL DECISION MAKING: This is a 87-year-old female who lives alone presents to the ED with her daughter and [id number]. The patient was seen here yesterday for similar symptoms. She originally was seen at [place] emergency department on Wednesday. The patient had fallen that day. She had some x-rays done at that time and was found to have a toe injury. No other significant findings. She was here yesterday with some increased pain in the right knee. An x-ray was performed. There was a small effusion. The patient was discharged home on oxycodone. She presents again today because of increased pain in the right knee. She also is noted to have a large hematoma in the left lateral thigh. She denies striking her head or loss of consciousness there. No back or neck pain. No headaches. No chest pains. No shortness of breath. No specific reason for fever, per the patient. No upper respiratory symptoms. Exam shows clear lung sounds. She is in no distress on my exam. She does have significant mount of pain in the right knee with minimal movement. No obvious bruising to the right knee. Previous surgery by Dr. Ray. Toes are skip taped in the right foot. Vital signs show a temperature of 37.9. Blood pressure mildly elevated. Patient states that she is unable to go home because she is unable to get around because of her pain. She has pain both in her right knee and also in her left thigh where she has the hematoma. CBC does not show any leukocytosis. She does have an anemia of 10.4. Chest x-ray did not show acute disease. A femur x-ray on the left and right did not show acute fracture. Chemistry panel shows a BUN of 35 and creatinine of 1.45. Otherwise chemistry panel was unremarkable. Because the patient is unable to ambulate and lives alone, she will need further evaluation and likely rehab placement. Triage Nursing notes reviewed. Vital Signs: reviewed Prior /Outside records reviewed: none Differential diagnosis: Soft tissue injury, fracture, contusion, dislocation, UTI, pneumonia, viral syndrome, other. Diagnostics, as interpreted by me: 12 lead ECG: None Cardiac Monitoring ordered: none Medical decision rules: none Imaging studies: Chest x-ray: No acute disease. X-ray of the bilateral femurs: No fractures or dislocations. Procedures: none. Critical care: none. HPI: See MDM above. PAST MEDICAL HISTORY: See Below PAST SURGICAL HISTORY: See Below SOCIAL HISTORY: See Below HOME MEDICATIONS:See Below ALLERGIES: See Below VITALS: See Below PHYSICAL EXAMINATION: See MDM for positive findings otherwise unremarkable. CONSTITUTIONAL/VITAL SIGNS: Reviewed GENERAL:done as appropriate INTEGUMENTARY: done as appropriate HEAD: done as appropriate EYES: done as appropriate RESPIRATORY: done as appropriate CARDIOVASCULAR:done as appropriate GI/ABDOMEN:done as appropriate EXTREMITIES: done as appropriate NEUROLOGICAL: done as appropriate PSYCHIATRIC:done as appropriate MUSCULOSKELETAL:done as appropriate TRIAGE NURSING DOCUMENTATION REVIEWED. Past Med/Surg History Medical History Abnormal mammogram Acid reflux disease AF (paroxysmal atrial fibrillation) Allergic rhinitis Aortic stenosis CAD (coronary artery disease) Carotid artery stenosis CKD (chronic kidney disease), stage III Cystocele, midline Degenerative lumbar spinal stenosis Diastolic heart failure EKG, abnormal Generalized osteoarthritis of multiple sites Glaucoma H/O TIA (transient ischemic attack) and stroke History of breast cancer Hypercholesterolemia Hypertension Iron deficiency anemia Mitral regurgitation Pessary maintenance Postinflammatory pulmonary fibrosis Restless legs syndrome UTI symptoms Surgical History H/O dilation and curettage H/O eye surgery History of bilateral knee replacement History of esophagogastroduodenoscopy (EGD) S/P appendectomy S/P breast lumpectomy S/P cardiac cath S/P carotid endarterectomy S/P cataract extraction S/P cholecystectomy S/P colonoscopy S/P coronary artery stent placement S/P hysterectomy S/P sinus surgery S/P TAVR (transcatheter aortic valve replacement) S/P tubal ligation Family History Father Myocardial infarction Other Heart disease Hypertension Pancreatic cancer Prostate cancer Denies family history of Ovarian cancer Breast cancer Colorectal cancer Social History Smoking Status: Never smoker Second Hand Exposure: No; Do You Dip or Chew Tobacco: No; Hx Alcohol Use: No Hx Substance Use: No Preferred Language: Mauritian Communication Ability: Effective Visual Impairment: Limited Hearing Ability: Normal Casting Room Operator Required: No Beliefs That Will Affect Care: None marital status: / Current Living Situation: Alone current occupational status: retired How many Children do You have: 2 How many Children do You have Comment: 5 step-children Feels Safe at Home: Yes Childhood Exposure to Second-Hand Smoke: Yes Diet: low salt and regular caffeine: No Dental Care, Regularly: Yes Physical Activity Frequency: Does not Exercise Physical Activity Frequency Comment: yard/house work Seatbelt Use: always Sunscreen Use: Yes Do you think of yourself as: straight/heterosexual Gender Identity: Female Assistive Devices: Denture - Upper and Glasses Allergies Allergies Allergy/AdvReac Type Severity Reaction Status Date / Time levofloxacin Allergy Unknown muscle and Verified 01/06/23 13:33 joint pain tetanus toxoid, adsorbed Allergy Unknown CHEST Verified 01/06/23 13:33 PAIN, RESTLESSNESS atorvastatin AdvReac Intermediate ELEVATED Verified 01/06/23 13:33 OPK LEVEL PER FAMILY PRACTICE NOTES ON CHART tetracycline AdvReac Unknown ESOPHAGEAL Verified 01/06/23 13:33 EROSION Home Meds Home Medications Medication Instructions Recorded Confirmed vitamin B complex (B Complex 1 1 tab PO QAM 04/24/19 01/06/23 tablet) coenzyme Q10 100 mg capsule 100 mg PO DAILY 04/27/19 01/06/23 fluticasone propionate 50 2 sprays intranasal DAILY PRN 10/05/19 01/06/23 mcg/actuation nasal allergy symptoms spray,suspension (Flonase Allergy Relief) Lactobacillus rhamnosus GG 10 1 cap PO QPM 06/03/20 01/06/23 billion cell capsule (Culturelle) glucosamine sulf dipot 1 cap PO BID 06/03/20 01/06/23 chlr,msm,chond 550 mg-C 30 mg-edward 1 mg capsule (Glucosamine Chondroitin) light mineral oil 1 %-mineral oil 1 drp ophthalmic (eye) UD Dry Eyes 06/03/20 01/06/23 4.5 % eye drops (Soothe XP) magnesium 250 mg tablet 250 mg PO QAM 06/03/20 01/06/23 vit C 226 mg-vit E 90 mg-copper 1 cap PO BID 06/03/20 01/06/23 0.8 mg-zinc oxide-lutein 5 mg capsule (PreserVision Lutein) oxyquinoline 0.025 %-sodium lauryl 1 ea vaginal WK 07/15/20 01/06/23 sulfate 0.01 % vaginal gel (Trimo-Bustillo Jelly) omega 6-ofm-kye-fish oil 1,000 mg 1 cap PO DAILY 01/28/22 01/06/23 (120 mg-180 mg) capsule (Fish Oil) Previous Rx's Medication Instructions Recorded hydrocortisone acetate 25 mg 25 mg DE BID PRN itching #24 ea 11/12/20 rectal suppository (Anusol-HC) calcium carbonate 600 mg-vitamin 1 cap PO .dialy #30 caps 02/14/21 D3 25 mcg (1,000 unit) capsule albuterol sulfate 90 mcg/actuation 2 puff inhalation Q6H PRN 10/23/21 aerosol inhaler (Ventolin HFA) shortness of breath or wheezing #18 grams furosemide 20 mg tablet (Lasix) 20 mg PO DAILY PRN edema #30 tabs 10/31/21 cetirizine 10 mg tablet 10 mg PO DAILY #30 tabs 12/16/21 sucralfate 100 mg/mL oral 10 ml PO QID PRN nausea #420 mL 01/19/22 suspension (Carafate) aspirin 81 mg tablet,delayed 81 mg PO DAILY #90 tabs 07/21/22 release fluticasone 500 mcg-salmeterol 50 1 inh inhalation BID #60 ea 08/04/22 mcg/dose blistr powdr for inhalation (Advair Diskus) amlodipine 5 mg tablet 5 mg PO DAILY #90 tabs 11/05/22 metoprolol tartrate 25 mg tablet 25 mg PO BID #180 tabs 11/16/22 rivaroxaban 15 mg tablet (Xarelto) 15 mg PO PM #90 tabs 12/25/22 triamterene 37.5 1 tab PO DAILY #90 tabs 12/25/22 mg-hydrochlorothiazide 25 mg tablet (Maxzide-25mg) esomeprazole magnesium 40 mg 40 mg PO DAILY #90 caps 01/05/23 capsule,delayed release (Nexium) rosuvastatin 40 mg tablet 20 mg PO DAILY #90 tabs 01/21/23 tramadol 37.5 mg-acetaminophen 325 1 tab PO Q6H PRN pain #60 tabs 01/25/23 mg tablet oxycodone 5 mg tablet See Rx Instructions .Route 02/09/23 .COMPLEX PRN pain (scale score 7-10) #12 tabs gabapentin 100 mg capsule 100 mg PO TID #270 caps 02/10/23 losartan 100 mg tablet 100 mg PO DAILY #90 tabs 02/10/23 Results & Data (ED) Vital Signs Vital Signs - 24 hr 02/10/23 17:11 02/10/23 17:11 02/10/23 18:01 Temperature 37.9 C H Temperature Source Oral Pulse Rate 84 Pulse Rate [Right Finger] 84 77 Pulse Rate from SpO2 Sensor Respiratory Rate 20 20 14 Respiratory Effort / Characteristics Non-Labored Spontaneous Non-Labored Spontaneous Respiratory Depth Normal Normal Respiratory Pattern Regular Regular Blood Pressure 157/50 H Blood Pressure [Right Arm] 157/50 H 142/58 H Blood Pressure Mean 85 Blood Pressure Mean [Right Arm] 85 86 Pulse Oximetry 93 93 93 Oxygen Delivery Method Room Air Room Air Room Air Sepsis Recent Fever Within 48 Hours No Sepsis New/Unexplained Change in Mental Status No Sepsis Action Taken by Nursing No Action Required 02/10/23 20:00 02/10/23 19:45 02/10/23 20:30 Temperature Temperature Source Pulse Rate 77 79 76 Pulse Rate [Right Finger] Pulse Rate from SpO2 Sensor 77 76 Respiratory Rate 21 19 Respiratory Effort / Characteristics Respiratory Depth Respiratory Pattern Blood Pressure 153/54 H 162/56 H Blood Pressure [Right Arm] Blood Pressure Mean 87 91 Blood Pressure Mean [Right Arm] Pulse Oximetry 99 98 Oxygen Delivery Method Room Air Room Air Sepsis Recent Fever Within 48 Hours Sepsis New/Unexplained Change in Mental Status Sepsis Action Taken by Nursing 02/10/23 21:00 02/10/23 21:30 02/10/23 22:00 Temperature Temperature Source Pulse Rate 76 73 72 Pulse Rate [Right Finger] Pulse Rate from SpO2 Sensor 76 73 73 Respiratory Rate 18 21 21 Respiratory Effort / Characteristics Respiratory Depth Respiratory Pattern Blood Pressure 152/88 H 147/49 H 149/48 H Blood Pressure [Right Arm] Blood Pressure Mean 109 81 81 Blood Pressure Mean [Right Arm] Pulse Oximetry 92 91 90 Oxygen Delivery Method Room Air Room Air Room Air Sepsis Recent Fever Within 48 Hours Sepsis New/Unexplained Change in Mental Status Sepsis Action Taken by Nursing 02/10/23 22:30 Temperature Temperature Source Pulse Rate 74 Pulse Rate [Right Finger] Pulse Rate from SpO2 Sensor 74 Respiratory Rate 20 Respiratory Effort / Characteristics Respiratory Depth Respiratory Pattern Blood Pressure 154/49 H Blood Pressure [Right Arm] Blood Pressure Mean 84 Blood Pressure Mean [Right Arm] Pulse Oximetry 90 Oxygen Delivery Method Room Air Sepsis Recent Fever Within 48 Hours Sepsis New/Unexplained Change in Mental Status Sepsis Action Taken by Nursing Laboratory Data 02/10/23 18:28 02/10/23 18:28 Lab Results 02/10/23 02/10/23 02/10/23 Range/Units 18:28 18:28 18:28 WBC 7.50 (4.8-10.8) K/ul RBC 3.31 L (4.20-5.40) M/uL Hgb 10.4 L (12.0-16.0) g/dl Hct 32.0 L (37.0-47.0) % MCV 96.7 (80.0-100.0) fL MCH 31.4 (25.0-34.0) pg MCHC 32.5 (32.0-36.0) g/dL RDW Std Deviation 45.3 (36.4-46.3) fL RDW Coeff of Zion 12.8 (11.5-14.5) % Plt Count 152 (130-400) K/uL MPV 11.4 (9.4-12.4) fL Immature Gran % (Auto) 0.4 % Neut % (Auto) 68.3 % Lymph % (Auto) 14.0 % Orange % (Auto) 15.6 % Eos % (Auto) 0.8 % Baso % (Auto) 0.9 % Neut # (Auto) 5.12 (1.40-6.50) K/uL Lymph # (Auto) 1.05 L (1.2-3.4) K/uL Orange # (Auto) 1.17 H (0.11-0.59) K/uL Eos # (Auto) 0.06 (0-0.50) K/uL Baso # (Auto) 0.07 (0-0.2) K/uL Immature Gran # (Auto) 0.03 (0.01-0.20) K/uL Sodium 140 (136-145) mmol/L Potassium 4.8 (3.5-5.1) mmol/L Chloride 105 (98-107) mmol/L Carbon Dioxide 27 (21-32) mmol/L Anion Gap 8 (3-11) BUN 35 H (6-23) mg/dl Creatinine 1.45 H (0.6-1.2) mg/dl Est Cr Clr Drug Dosing 29.1 ml/min Est GFR ( Amer) 37.4 ml/min Est GFR (Non-Af Amer) 32.3 ml/min BUN/Creatinine Ratio 24.1 H (10-20) Glucose 112 H (70-99(Fasting)) mg/dl Lactate (0.4-2.0) mmol/L Calcium 9.9 (8.6-10.3) mg/dl Total Bilirubin 0.8 (0.2-1.0) mg/dl AST 56 H (13-39) U/L ALT 32 (7-52) U/L Alkaline Phosphatase 73 (34-104) U/L Total Protein 7.3 (6.0-8.3) gm/dl Albumin 4.3 (3.4-5.0) gm/dl Globulin 3.0 (2.5-4.0) gm/dl Albumin/Globulin Ratio 1.4 (0.9-2) Procalcitonin 0.08 (0-0.5) ng/ml SARS-CoV-2, RNA, NAAT (NEGATIVE) 02/10/23 02/10/23 Range/Units 19:29 Unknown WBC (4.8-10.8) K/ul RBC (4.20-5.40) M/uL Hgb (12.0-16.0) g/dl Hct (37.0-47.0) % MCV (80.0-100.0) fL MCH (25.0-34.0) pg MCHC (32.0-36.0) g/dL RDW Std Deviation (36.4-46.3) fL RDW Coeff of Zion (11.5-14.5) % Plt Count (130-400) K/uL MPV (9.4-12.4) fL Immature Gran % (Auto) % Neut % (Auto) % Lymph % (Auto) % Orange % (Auto) % Eos % (Auto) % Baso % (Auto) % Neut # (Auto) (1.40-6.50) K/uL Lymph # (Auto) (1.2-3.4) K/uL Orange # (Auto) (0.11-0.59) K/uL Eos # (Auto) (0-0.50) K/uL Baso # (Auto) (0-0.2) K/uL Immature Gran # (Auto) (0.01-0.20) K/uL Sodium (136-145) mmol/L Potassium (3.5-5.1) mmol/L Chloride (98-107) mmol/L Carbon Dioxide (21-32) mmol/L Anion Gap (3-11) BUN (6-23) mg/dl Creatinine (0.6-1.2) mg/dl Est Cr Clr Drug Dosing ml/min Est GFR ( Amer) ml/min Est GFR (Non-Af Amer) ml/min BUN/Creatinine Ratio (10-20) Glucose (70-99(Fasting)) mg/dl Lactate 1.0 (0.4-2.0) mmol/L Calcium (8.6-10.3) mg/dl Total Bilirubin (0.2-1.0) mg/dl AST (13-39) U/L ALT (7-52) U/L Alkaline Phosphatase (34-104) U/L Total Protein (6.0-8.3) gm/dl Albumin (3.4-5.0) gm/dl Globulin (2.5-4.0) gm/dl Albumin/Globulin Ratio (0.9-2) Procalcitonin (0-0.5) ng/ml SARS-CoV-2, RNA, NAAT NEGATIVE (NEGATIVE) Administered Medications Sodium Chloride (Nss 1000ml) 1,000 mls @ 125 mls/hr IV .Q8H STA Stop: 02/11/23 02:27 Last Admin: 02/10/23 19:37 Dose: 125 mls/hr Documented By: TRUMAN Discontinued Medications Morphine Sulfate (Morphine Sulfate 2 Mg/Ml Carp) 2 mg IV NOW STA Stop: 02/10/23 20:12 Last Admin: 02/10/23 20:14 Dose: 2 mg Documented By: TRUMAN Imaging Data Radiologist's Impression: Chest X-Ray 02/10/23 18:28 XR chest 1V portable CLINICAL HISTORY: Fever COMPARISON STUDY: Chest radiograph June 03, 2020. FINDINGS: Right neck surgical clips are incidentally noted. There is a prosthetic cardiac valve, likely aortic. There is moderate cardiomegaly without evidence for pulmonary edema. A triangular shaped density projects over the right lower lung. IMPRESSION: 1. Triangular-shaped density which projects over the right lower lung. The appearance raises the possibility of artifact or atelectasis. Consolidation is considered less likely however radiographic follow-up is recommended. 2. Cardiomegaly. No evidence for pulmonary edema. ACT 112: Negative or not required by law. Electronically signed by: Patrick Polanco M.D. 02/10/2023 7:57 PM Discharge Plan Visit Data Chief Complaint: Leg Injury/Pain Stated Complaint: EVAL, HERE YEST FOR TOE FX, PAIN INCREASING ED Provider: Fady Santana Discharge Problem: Acute pain of right knee, Ambulatory dysfunction, Hematoma of left thigh Patient Disposition: Being Evaluated by Hospitalist Forms Stand Alone Forms: My [facility] Prescriptions Prescriptions: No Action fluticasone propionate [Flonase Allergy Relief] 50 mcg/actuation spray,suspension 2 sprays INTNAS DAILY PRN (Reason: allergy symptoms) Rx Instructions: administer into each nostril calcium carbonate-vitamin D3 600mg (1,500mg) -1,000 unit capsule 1 cap PO .dialy Qty: 30 2RF furosemide [Lasix] 20 mg tablet 20 mg PO DAILY PRN (Reason: edema) Qty: 30 2RF amlodipine 5 mg tablet 5 mg PO DAILY Qty: 90 3RF metoprolol tartrate 25 mg tablet 25 mg PO BID Qty: 180 3RF Xarelto 15 mg tablet 15 mg PO PM Qty: 90 3RF Rx Instructions: must administer with evening meal triamterene-hydrochlorothiazid [Maxzide-25mg] 37.5-25 mg tablet 1 tab PO DAILY Qty: 90 3RF esomeprazole magnesium [Nexium] 40 mg capsule,delayed release(DR/EC) 40 mg PO DAILY Qty: 90 1RF rosuvastatin 40 mg tablet 20 mg PO DAILY Qty: 90 3RF tramadol-acetaminophen 37.5-325 mg tablet 1 tab PO Q6H PRN (Reason: pain) Qty: 60 1RF gabapentin 100 mg capsule 100 mg PO TID Qty: 270 3RF losartan 100 mg tablet 100 mg PO DAILY Qty: 90 3RF omega 0-dcc-ftw-fish oil [Fish Oil] 1,000 mg (120 mg-180 mg) capsule 1 cap PO DAILY aspirin 81 mg tablet,delayed release (DR/EC) 81 mg PO DAILY Qty: 90 3RF albuterol sulfate [Ventolin HFA] 90 mcg/actuation HFA aerosol inhaler 2 puff inhalation Q6H PRN (Reason: shortness of breath or wheezing) Qty: 18 2RF sucralfate [Carafate] 100 mg/mL suspension 10 ml PO QID PRN (Reason: nausea) Qty: 420 5RF fluticasone propion-salmeterol [Advair Diskus] 500-50 mcg/dose blister with device 1 inh inhalation BID Qty: 60 1RF vitamin B complex [B Complex 1] tablet 1 tab PO QAM coenzyme Q10 100 mg capsule 100 mg PO DAILY hydrocortisone acetate [Anusol-HC] 25 mg suppository 25 mg DE BID PRN (Reason: itching) Qty: 24 1RF cetirizine 10 mg tablet 10 mg PO DAILY Qty: 30 0RF magnesium 250 mg Tablet 250 mg PO QAM Culturelle 10 billion cell Capsule 1 cap PO QPM PreserVision Lutein 226 mg-200 unit -5 mg-0.8 mg Capsule 1 cap PO BID Glucosamine Chondroitin 550-30-1 mg Capsule 1 cap PO BID Soothe XP 1-4.5 % Drops 1 drp OPHTHALMIC (EYE) UD Trimo-Bustillo Jelly 0.025-0.01 % Gel 1 ea VAGINAL WK oxycodone 5 mg tablet See Rx Instructions .ROUTE .COMPLEX PRN (Reason: pain (scale score 7-10)) Qty: 12 0RF Rx Instructions: Use 1/2 to 1 tablet of the oxycodone by mouth up to every 6 hours as needed for severe pain. Monitor for drowsiness and sedation with this. Referrals Referrals: Devante Landeros DO [Primary Care Provider] -
[2023-02-10 19:33] LABS: Basophils # (auto) 0.07 K/uL (0-0.2); Basophils % (auto) 0.9 %; Eosinophils # (auto) 0.06 K/uL (0-0.50); Eosinophils % (auto) 0.8 %; Hemoglobin 10.4 g/dl (12.0-16.0); Immature Granulocytes # (auto) 0.03 K/uL (0.01-0.20); Immature Granulocytes % (auto) 0.4 %; Lymphocytes # (auto) 1.05 K/uL (1.2-3.4); Mean Corpuscular Hemoglobin 31.4 pg (25.0-34.0); Mean Corpuscular Hgb Conc 32.5 g/dL (32.0-36.0); Mean Corpuscular Volume 96.7 fL (80.0-100.0); Mean Platelet Volume 11.4 fL (9.4-12.4); Monocytes # (auto) 1.17 K/uL (0.11-0.59); Monocytes % (auto) 15.6 %; Neutrophils # (auto) 5.12 K/uL (1.40-6.50); Neutrophils % (auto) 68.3 %; Platelet Count 152 K/uL (130-400); RDW Coefficient of Variation 12.8 % (11.5-14.5); RDW Standard Deviation 45.3 fL (36.4-46.3); Red Blood Count 3.31 M/uL (4.20-5.40)
[2023-02-10 19:35] LABS: Albumin Globulin Ratio 1.4 (0.9-2); Albumin Level 4.3 gm/dl (3.4-5.0); BUN Creatinine Ratio 24.1 (10-20); Bilirubin,Total 0.8 mg/dl (0.2-1.0); Calcium 9.9 mg/dl (8.6-10.3); Creatinine Clr Calc Pharmacy 29.1 ml/min; Est GFR (African American) 37.4 ml/min; Est GFR (Non-African American) 32.3 ml/min; Potassium 4.8 mmol/L (3.5-5.1); Total Protein 7.3 gm/dl (6.0-8.3)
--- NOTE | 2023-02-10 19:58 | XRay Report ---
XR chest 1V portable CLINICAL HISTORY: Fever COMPARISON STUDY: Chest radiograph June 03, 2020. FINDINGS: Right neck surgical clips are incidentally noted. There is a prosthetic cardiac valve, like ly aortic. There is moderate cardiomegaly without evidence for pulmonary edema. A triangular shaped d ensity projects over the right lower lung. IMPRESSION: 1. Triangular-shaped density which projects over the right lower lung. The appearance raises the poss ibility of artifact or atelectasis. Consolidation is considered less likely however radiographic foll ow-up is recommended. 2. Cardiomegaly. No evidence for pulmonary edema. ACT 112: Negative or not required by law. Electronically signed by: Patrick Polanco M.D. 02/10/2023 7:57 PM
[2023-02-10] MEDS ORDERED: MoRPHine SULFATE 2 MG/ML CARP IV STA (20:11)
--- NOTE | 2023-02-10 21:22 | History & Physical Report ---
Date of Service February 10, 2023 Assessment & Plan (1) Fall: Plan: 87 y/o female with a PMHx of a fib on Xarelto, s/p TAVR, B TKR, HTN, HLD, and reactive airway disease here for evaluation of her bilateral knee and left hip pain admitted for pain control and possible placement at rehab. #Fall Patient with significant pain with ambulation and movement of the lower extremities following a fall 02/08. There have been no signs of fracture on previous images. Repeat imaging was done in the ED and is pending. My review of the images did not reveal any obvious fractures. Admitted for pain control. Good response to morphine in the ED. Will continue with hydrocodone/acetaminophen PRN. Can consider additional dosing of morphine if indicated. [] pain control [] f/u imaging studies [] PT/OT [] CM for ?placement #Blood loss anemia Patient has significant ecchymosis on exam. 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 Patient on Xarelto for atrial fibrillation. There has been a drop in her hemoglobin from 12.9 to 10.4. Would continue to monitor for signs of blood loss. If hemoglobin continues to drop would recommend repeating imaging to look for internal bleeding. [] AM CBC #TOPHER on CKD Patient has a history of CKD baseline Cr 1.08-1.09. Holding diuretics at this time. [] AM CMP #History of BTKR Hardware appropriately placed on imaging. Surgery was done with Dr. Ray. Could consider ortho consult. #Fracture right toe Skip taped. Likely will heal without further intervention. Continue to monitor. #A fib on Xarelto Patient rate and rhythm controlled at this time. Continue with home meds - metoprolol. #HTN Hold diuretics in setting of TOPHER. Otherwise continue home meds #HLD continue home meds see attending attestation for further documentation Code status: full DVT ppx: Xarelto FENGI: Heart Healthy Dispo: MedSurg (2) Contusion of knee, right: (3) Contusion of left hip and thigh: (4) Fracture of right toe: (5) Anticoagulant long-term use: (6) Ambulatory dysfunction: (7) CKD (chronic kidney disease), stage III: (8) S/P TAVR (transcatheter aortic valve replacement): (9) Hypertension: (10) Hypercholesterolemia: (11) Mitral regurgitation: History of Present Illness Chief Complaint: Pain Primary Care Provider: Devante Landeros DO 87 y/o female with a PMHx of a fib on Xarelto, HTN, HLD, and reactive airway disease here for evaluation of her bilateral knee and left hip pain. Patient fell 02/08. She was evaluated and there were no signs of fracture at that time. Patient was found to have small right knee effusion. Patient has been unable to achieve adequate pain control on an outpatient basis. She is unable to perform her ADLs most specifically ambulation without significant pain. She has returned to the ED for further pain control. In the ED she was hypertensive with shallow breathing and desaturations. She was placed on 2L NC and has since been weaned to RA. Maintaining sats >90. Temp was 37.9. She was found to have an TOPHER with Cr of 1.45 and was started on fluid resuscitation. Hbg 10.4 as well. Repeat imaging is pending. She was able to achieve adequate pain control with one time dose of morphine 2 mg IV. She was admitted for pain control with a likely need for rehab at a skilled facility. Allergies Allergy/AdvReac Type Severity Reaction Status Date / Time atorvastatin AdvReac Intermediate ELEVATED Verified 02/10/23 23:08 OPK LEVEL PER FAMILY PRACTICE NOTES ON CHART levofloxacin AdvReac Intermediate muscle and Verified 02/10/23 23:08 joint pain tetanus toxoid, adsorbed AdvReac Intermediate CHEST Verified 02/10/23 23:08 PAIN, RESTLESSNESS tetracycline AdvReac Unknown ESOPHAGEAL Verified 02/10/23 23:08 EROSION Home Medications Medication Instructions Recorded Confirmed Type coenzyme Q10 100 mg capsule 100 mg PO DAILY 04/27/19 02/10/23 History fluticasone propionate 50 2 sprays intranasal DAILY PRN 10/05/19 02/10/23 History mcg/actuation nasal allergy symptoms spray,suspension (Flonase Allergy Relief) Lactobacillus rhamnosus GG 10 1 cap PO DAILY 06/03/20 02/10/23 History billion cell capsule (Culturelle) glucosamine sulf dipot 1 cap PO BID 06/03/20 02/10/23 History chlr,msm,chond 550 mg-C 30 mg-edward 1 mg capsule (Glucosamine Chondroitin) light mineral oil 1 %-mineral oil 1 drp ophthalmic (eye) DIRECTED 06/03/20 02/10/23 History 4.5 % eye drops (Soothe XP) PRN Dry Eyes magnesium 250 mg tablet 250 mg PO QAM 06/03/20 02/10/23 History vit C 226 mg-vit E 90 mg-copper 1 cap PO BID 06/03/20 02/10/23 History 0.8 mg-zinc oxide-lutein 5 mg capsule (PreserVision Lutein) oxyquinoline 0.025 %-sodium lauryl 1 ea vaginal WK 07/15/20 02/10/23 History sulfate 0.01 % vaginal gel (Trimo-Bustillo Jelly) hydrocortisone acetate 25 mg 25 mg [place] BID PRN itching #24 ea 11/12/20 02/10/23 Rx rectal suppository (Anusol-HC) albuterol sulfate 90 mcg/actuation 2 puff inhalation Q6H PRN 10/23/21 02/10/23 Rx aerosol inhaler (Ventolin HFA) shortness of breath or wheezing #18 grams furosemide 20 mg tablet (Lasix) 20 mg PO DAILY PRN edema #30 tabs 10/31/21 02/10/23 Rx cetirizine 10 mg tablet 10 mg PO DAILY #30 tabs 12/16/21 02/10/23 Rx sucralfate 100 mg/mL oral 10 ml PO QID PRN nausea #420 mL 01/19/22 02/10/23 Rx suspension (Carafate) omega 6-qev-gxv-fish oil 1,000 mg 1 cap PO DAILY 01/28/22 02/10/23 History (120 mg-180 mg) capsule (Fish Oil) aspirin 81 mg tablet,delayed 81 mg PO DAILY #90 tabs 07/21/22 02/10/23 Rx release fluticasone 500 mcg-salmeterol 50 1 inh inhalation BID #60 ea 08/04/22 02/10/23 Rx mcg/dose blistr powdr for inhalation (Advair Diskus) amlodipine 5 mg tablet 5 mg PO DAILY #90 tabs 11/05/22 02/10/23 Rx metoprolol tartrate 25 mg tablet 25 mg PO BID #180 tabs 11/16/22 02/10/23 Rx rivaroxaban 15 mg tablet (Xarelto) 15 mg PO PM #90 tabs 12/25/22 02/10/23 Rx triamterene 37.5 1 tab PO DAILY #90 tabs 12/25/22 02/10/23 Rx mg-hydrochlorothiazide 25 mg tablet (Maxzide-25mg) esomeprazole magnesium 40 mg 40 mg PO DAILY #90 caps 01/05/23 02/10/23 Rx capsule,delayed release (Nexium) rosuvastatin 40 mg tablet 20 mg PO DAILY #90 tabs 01/21/23 02/10/23 Rx tramadol 37.5 mg-acetaminophen 325 1 tab PO Q6H PRN pain #60 tabs 01/25/23 02/10/23 Rx mg tablet oxycodone 5 mg tablet See Rx Instructions .Route 02/09/23 02/10/23 Rx .COMPLEX PRN pain (scale score 7-10) #12 tabs calcium carbonate 600 mg-vitamin 1 cap PO HS 02/10/23 02/10/23 History D3 25 mcg (1,000 unit) capsule vitamin B complex 1 tab PO DAILY 02/10/23 02/10/23 History gabapentin 100 mg capsule 100 mg PO TID #270 caps 02/11/23 Rx losartan 100 mg tablet 100 mg PO DAILY #90 tabs 02/11/23 Rx Past Med/Surg History Medical History Abnormal mammogram Acid reflux disease AF (paroxysmal atrial fibrillation) Allergic rhinitis Aortic stenosis CAD (coronary artery disease) Carotid artery stenosis CKD (chronic kidney disease), stage III Cystocele, midline Degenerative lumbar spinal stenosis Diastolic heart failure EKG, abnormal Generalized osteoarthritis of multiple sites Glaucoma H/O TIA (transient ischemic attack) and stroke History of breast cancer Hypercholesterolemia Hypertension Iron deficiency anemia Mitral regurgitation Pessary maintenance Postinflammatory pulmonary fibrosis Restless legs syndrome UTI symptoms Surgical History H/O dilation and curettage H/O eye surgery History of bilateral knee replacement History of esophagogastroduodenoscopy (EGD) S/P appendectomy S/P breast lumpectomy S/P cardiac cath S/P carotid endarterectomy S/P cataract extraction S/P cholecystectomy S/P colonoscopy S/P coronary artery stent placement S/P hysterectomy S/P sinus surgery S/P TAVR (transcatheter aortic valve replacement) S/P tubal ligation Family History Father Myocardial infarction Other Heart disease Hypertension Pancreatic cancer Prostate cancer Denies family history of Ovarian cancer Breast cancer Colorectal cancer Social History Smoking Status: Never smoker Second Hand Exposure: No; Do You Dip or Chew Tobacco: No; Hx Alcohol Use: No Hx Substance Use: No Preferred Language: Qatari Communication Ability: Effective Visual Impairment: Limited Hearing Ability: Normal Solution Designer Required: No Beliefs That Will Affect Care: None marital status: / Current Living Situation: Alone current occupational status: retired How many Children do You have: 2 How many Children do You have Comment: 5 step-children Other Information That Helps Us Care for You: No Feels Safe at Home: Yes Safety Concerns: Feels Safe At This Time Childhood Exposure to Second-Hand Smoke: Yes Diet: low salt and regular caffeine: No Dental Care, Regularly: Yes Physical Activity Frequency: Does not Exercise Physical Activity Frequency Comment: yard/house work Seatbelt Use: always Sunscreen Use: Yes Do you think of yourself as: straight/heterosexual Gender Identity: Female Assistive Devices: Cane and Walker Review of Systems Review of Systems: no f/c/CP/SOB/palpitations/abdominal pain/dysuria Physical Exam Physical Exam: Gen: well appearing female in NAD HEENT: AT NC Resp: CTAB no wheezing CV: RRR 2/6 systolic ejection murmur noted, DP and radial pulses 2+ symmetric, trace to 1+ pitting edema BLE (baseline status) Abd: soft, non-tender, non-distended, no masses or HSM noted Skin: extensive ecchymosis left hip Neuro: alert and oriented Psych: appropriate mood and affect MSK: skip taped second and third right toe, bruised, otherwise no gross deformities, able to move all extremities but with significant discomfort Results & Data Results & Data Vital Signs (Past 12 Hours) Vital Signs Temp Pulse Pulse Resp BP BP Pulse Ox 02/10/23 21:00 76 18 152/88 H 92 02/10/23 20:30 76 19 162/56 H 98 02/10/23 19:45 79 02/10/23 20:00 77 21 153/54 H 99 02/10/23 18:01 77 14 142/58 H 93 05/24/23 17:11 84 20 157/50 H 93 02/10/23 17:11 37.9 C H 84 20 157/50 H 93 O2 Del Method 02/10/23 21:00 Room Air 02/10/23 20:30 Room Air 02/10/23 19:45 02/10/23 20:00 Room Air 02/10/23 18:01 Room Air 02/10/23 17:11 Room Air 02/10/23 17:11 Room Air Laboratory Results 02/10/23 18:28 02/10/23 18:28 Diagnostic Findings Chest X-Ray 02/10/23 18:28 XR chest 1V portable CLINICAL HISTORY: Fever COMPARISON STUDY: Chest radiograph June 03, 2020. FINDINGS: Right neck surgical clips are incidentally noted. There is a prosthetic cardiac valve, likely aortic. There is moderate cardiomegaly without evidence for pulmonary edema. A triangular shaped density projects over the right lower lung. IMPRESSION: 1. Triangular-shaped density which projects over the right lower lung. The appearance raises the possibility of artifact or atelectasis. Consolidation is considered less likely however radiographic follow-up is recommended. 2. Cardiomegaly. No evidence for pulmonary edema. Supervising Physician Co-Signing Physician Notes Status post fall/ambulatory dysfunction/status post BTKR- Mechanical fall Patient unable to ambulate due to pain and stiffness Consult PT/OT Would likely need inpatient rehab Acetaminophen 650 mg by mouth every 6 hours as needed for mild pain or fever [place] 5/325, 1 every 6 hours as needed for moderate pain Acute kidney injury on CKD- Creatinine 1.45 on admission, with base 1.09 Receiving normal saline Recheck laboratories in a.m. Atrial fibrillation/hypertension- Continue metoprolol and Xarelto Remaining orders and notations as noted Resident Activity Tracking Resident Involvement: Resident Care Provided Care Provided: Adult Hospital Medicine (1) Fall Encounter type: subsequent encounter Qualified Code(s): W19.XXXD - Unspecified fall, subsequent encounter
[2023-02-10] MEDS ORDERED: ALBUTEROL HFA 8 GM INHALER INH PRN (23:32)
[2023-02-10] MEDS ORDERED: POLYETHYLENE (MIRALAX) 17 GM PACK PO PRN (23:32)
[2023-02-10] MEDS ORDERED: FLUTICASONE PROPIONATE NA SPR 16 GM BTL PRN (23:32)
[2023-02-11] MEDS: RIVAROXABAN 15 MG TAB PO SCH ×2 (00:20→17:37)
[2023-02-11] MEDS: GABAPENTIN 100 MG CAP PO SCH ×4 (00:20→19:35)
[2023-02-11] MEDS: METOPROLOL TARTRATE 25 MG TAB PO SCH ×3 (00:20→19:35)
[2023-02-11] MEDS: HYDROCODONE/ACETAMOPHEN 5/325MG TAB PO PRN ×2 (00:41→08:05)
[2023-02-11] MEDS ORDERED: SODIUM CHLORIDE 0.9% 1000ML 1,000 ML IV SCH (02:30)
[2023-02-11] MEDS ORDERED: MoRPHine SULFATE 2 MG/ML CARP IV STA (05:41)
--- NOTE | 2023-02-11 07:08 | XRay Report ---
XR femur LT 2V routine, XR femur RT 2V routine CLINICAL HISTORY: pain TECHNIQUE: 2 radiographic views of the bilateral femurs were obtained. Comparison: Comparison is made to pelvis radiograph 02/02/2020 FINDINGS: There is no evidence of an acute fracture. Degenerative changes are seen in the hip and knee joints. Patient is status post bilateral total knee arthroplasty. Vascular calcifications are noted. Calcifi c density in the region of the left groin is unchanged and favored to represent atherosclerotic calci fication IMPRESSION: Degenerative changes without evidence of acute bony injury. ACT 112: Negative or not required by law. Electronically signed by: Marv Lino M.D. 02/11/2023 7:07 AM
[2023-02-11] MEDS: CETIRIZINE HCL 10 MG TABLET PO SCH (08:05)
[2023-02-11] MEDS: ASPIRIN 81 MG ECTAB PO SCH (08:06)
[2023-02-11] MEDS: LOSARTAN POTASSIUM 50 MG TAB PO SCH (08:06)
[2023-02-11] MEDS: MAGNESIUM OXIDE 400 MG TAB PO SCH (08:06)
[2023-02-11] MEDS: amLODIPine BESYLATE 5 MG TAB PO SCH (08:07)
[2023-02-11] MEDS: PANTOprazole 40 MG TAB PO SCH (08:07)
[2023-02-11] MEDS: FLUTICASONE/VILANTEROL 200/25MCG 14 PUFFS/INHALER INH SCH (08:07)
[2023-02-11] MEDS ORDERED: ROSUVASTATIN CALCIUM 20 MG TAB PO SCH (09:00)
[2023-02-11 09:01] LABS: Albumin Globulin Ratio 1.5 (0.9-2); Albumin Level 3.9 gm/dl (3.4-5.0); Bilirubin,Total 1.2 mg/dl (0.2-1.0); Calcium 9.2 mg/dl (8.6-10.3); Est GFR (African American) 47.1 ml/min; Est GFR (Non-African American) 40.6 ml/min; Globulin 2.6 gm/dl (2.5-4.0); Total Protein 6.5 gm/dl (6.0-8.3)
[2023-02-11 09:17] LABS: Hematocrit (blood only) 30.4 % (37.0-47.0); Hemoglobin 9.9 g/dl (12.0-16.0); Mean Corpuscular Hemoglobin 31.8 pg (25.0-34.0); Mean Corpuscular Hgb Conc 32.6 g/dL (32.0-36.0); Mean Corpuscular Volume 97.7 fL (80.0-100.0); Platelet Count 144 K/uL (130-400); RDW Coefficient of Variation 12.9 % (11.5-14.5); RDW Standard Deviation 45.4 fL (36.4-46.3); Red Blood Count 3.11 M/uL (4.20-5.40); White Blood Count 5.82 K/ul (4.8-10.8)
--- NOTE | 2023-02-11 09:22 | Hospitalist Progress Note ---
Date of Service February 11, 2023 Assessment & Plan (1) Fall: Plan: 87 y/o female with a PMHx of a fib on Xarelto, s/p TAVR, B TKR, HTN, HLD, and reactive airway disease here for evaluation of her bilateral knee and left hip pain admitted for pain control and possible placement at rehab. Acute mechanical Fall, pain with ambulation and movement of the lower extremities following a fall 02/08. no signs of fracture on femur XRay and CXR , history of B/L TKR right knee is very tender with some effusion we will consult orthopedics, and evaluate hardware x-rays read as no fracture right toe fracture, fifth toe avulsion fracture patient had previously also had a right third toe dislocation which was reduced Admitted for pain control. PT/OT acute on chronic anemia Patient has significant ecchymosis on exam. 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 Holding diuretics. amlodipine for chronic hypertension losartan continues A fib on Xarelto at this time we will hold Xarelto until further evaluation of her anemia Patient rate and rhythm controlled with metoprolol 25 mg bid Patient is status post TAVR Code status: full DVT ppx: Xarelto (2) Contusion of knee, right: Plan: Right knee is most painful area initially without derangement on x-ray will have orthopedic reevaluate (3) Contusion of left hip and thigh: Admission and Anticipated Discharge Date Admission Date: February 10, 2023 Subjective Patient seen in the presence of her daughter. She is in good spirits. Her biggest complaints are right knee which is the most painful. She is ecchymosis on her left hip and left elbow and she is got skip taped of her fracture toes however her right knee is the most tender area as mentioned with some effusion but no ecchymosis. Of note on laboratory she has elevation of her transaminases with concern for possible liver injury with fall if patient has continued anemia or LFT changes will consider imaging of her liver Physical Exam Physical Exam: Awake alert and appropriate. Cardiac exam is regular lungs are clear ecchymosis on her left elbow is not tense ecchymosis on her left hip once again not tense abdomen without significant right upper quadrant tenderness or bruising on her flank on the right side there is some bruising on the left side. Results & Data Results & Data Vital Signs (Past 12 Hours) Vital Signs Temp Pulse Pulse Resp BP BP Pulse Ox 02/11/23 07:35 98.2 F 75 16 146/71 H 93 02/11/23 00:28 99.3 F 74 18 146/70 H 94 02/10/23 23:59 76 16 147/79 H 90 02/10/23 23:00 81 02/10/23 22:30 74 20 154/49 H 90 02/10/23 22:00 72 21 149/48 H 90 02/10/23 21:30 73 21 147/49 H 91 O2 Del Method 02/11/23 07:35 Room Air 02/11/23 00:28 Room Air 02/10/23 23:59 Room Air 02/10/23 23:00 02/10/23 22:30 Room Air 02/10/23 22:00 Room Air 02/10/23 21:30 Room Air Laboratory Results Reviewed CBC and PRP Diagnostic Findings Reviewed x-rays of knee showed them the patient PG Care Time/CCT Total # of Minutes Spent Total Time Spent with Patient: Total time spent is greater than 50% in coordination of care (as documented) at patient's floor/unit and/or counseling patient: Coding Level of Care Code 31245 SUB INP/OBS CARE 3/50MIN Diagnoses Fall W19.XXXD Encounter type: subsequent encounter Contusion of knee, right S80.01XA Contusion of left hip and thigh S70.02XA; S70.12XA (1) Fall Encounter type: subsequent encounter Qualified Code(s): W19.XXXD - Unspecified fall, subsequent encounter
[2023-02-11 09:55] LABS: Appearance Urine Clear (Clear); Bacteria Urine Automated 1+ (Negative); Bilirubin Urine Negative (Negative); Blood Urine Negative (Negative); Cast Urine Automated 0 /lpf (0-5); Color Urine Dark Yellow; Epithelial Cell Urine Auto >30 /lpf (0-5); Glucose Urine UA Negative (Negative); Ketones Urine Negative (Negative); Leukocyte Esterase Urine Trace (Negative); Nitrite Urine Negative (Negative); Protein Urine Negative (Negative); RBC Urine Automated 0-4 /hpf (0-4); Specific Gravity Urine 1.015 (1.000-1.030); Urobilinogen Urine Negative (Negative)
[2023-02-11] MEDS: ACETAMINOPHEN 500 MG TAB PO SCH ×2 (14:33→19:35)
--- NOTE | 2023-02-11 22:05 | Billing Data ---
Date of Service February 11, 2023 Coding Level of Care Code 48852 INT INP/OBS CARE
[2023-02-11] MEDS: oxyCODONE HCL IR 5 MG TAB (IMMEDIATE RELEASE) PO PRN (22:51)
--- NOTE | 2023-02-12 07:07 | Orthopedic Consultation ---
Date of Service February 12, 2023 Assessment & Plan (1) Contusion of knee, right: I see no signs of fracture or any major problem with the skeleton. Her muscles seem to be quite sore but that does not seem to be anything more than that. I do not suspect any signs of hip fracture or hip pathology. X-rays are all fairly normal. In light of this we will just continue to let her weight-bear as tolerated. Treat her symptomatically in the sling should all get better. She is okay for discharge anytime medically stable. She can weight-bear as tolerated. Any orthopedic questions can be directly [phone] (2) Fall: (3) Acute pain of right knee: History of Present Illness Reason for Consultation: . Right hip and leg pain after a fall. Requesting Physician: . Attending Physician: Jhon Hinojosa MD . Patient is an 87-year-old the female long-term patient of mine who presents for evaluation of pain after a fall. She is well-known to me from previous bilateral knee replacements. She is done well from this. She apparently had a fall several days ago and landed on her left hip. She was admitted for decreased ambulatory ability. She does not report really any significant pain lying in bed but says she has some pain on the right leg with weightbearing particularly. X-rays been obtained. She does have some bruising of her left hip. Denies much in way of pain previous to this. Allergies Allergy/AdvReac Type Severity Reaction Status Date / Time atorvastatin AdvReac Intermediate ELEVATED Verified 02/10/23 23:08 OPK LEVEL PER FAMILY PRACTICE NOTES ON CHART levofloxacin AdvReac Intermediate muscle and Verified 02/10/23 23:08 joint pain tetanus toxoid, adsorbed AdvReac Intermediate CHEST Verified 02/10/23 23:08 PAIN, RESTLESSNESS tetracycline AdvReac Unknown ESOPHAGEAL Verified 02/10/23 23:08 EROSION Home Medications Medication Instructions Recorded Confirmed Type coenzyme Q10 100 mg capsule 100 mg PO DAILY 04/27/19 02/10/23 History fluticasone propionate 50 2 sprays intranasal DAILY PRN 10/05/19 02/10/23 History mcg/actuation nasal allergy symptoms spray,suspension (Flonase Allergy Relief) Lactobacillus rhamnosus GG 10 1 cap PO DAILY 06/03/20 02/10/23 History billion cell capsule (Culturelle) glucosamine sulf dipot 1 cap PO BID 06/03/20 02/10/23 History chlr,msm,chond 550 mg-C 30 mg-edward 1 mg capsule (Glucosamine Chondroitin) light mineral oil 1 %-mineral oil 1 drp ophthalmic (eye) DIRECTED 06/03/20 02/10/23 History 4.5 % eye drops (Soothe XP) PRN Dry Eyes magnesium 250 mg tablet 250 mg PO QAM 06/03/20 02/10/23 History vit C 226 mg-vit E 90 mg-copper 1 cap PO BID 06/03/20 02/10/23 History 0.8 mg-zinc oxide-lutein 5 mg capsule (PreserVision Lutein) oxyquinoline 0.025 %-sodium lauryl 1 ea vaginal WK 07/15/20 02/10/23 History sulfate 0.01 % vaginal gel (Trimo-Bustillo Jelly) hydrocortisone acetate 25 mg 25 mg MA BID PRN itching #24 ea 11/12/20 02/10/23 Rx rectal suppository (Anusol-HC) albuterol sulfate 90 mcg/actuation 2 puff inhalation Q6H PRN 10/23/21 02/10/23 Rx aerosol inhaler (Ventolin HFA) shortness of breath or wheezing #18 grams furosemide 20 mg tablet (Lasix) 20 mg PO DAILY PRN edema #30 tabs 10/31/21 02/10/23 Rx cetirizine 10 mg tablet 10 mg PO DAILY #30 tabs 12/16/21 02/10/23 Rx sucralfate 100 mg/mL oral 10 ml PO QID PRN nausea #420 mL 01/19/22 02/10/23 Rx suspension (Carafate) omega 6-ycg-vrt-fish oil 1,000 mg 1 cap PO DAILY 01/28/22 02/10/23 History (120 mg-180 mg) capsule (Fish Oil) aspirin 81 mg tablet,delayed 81 mg PO DAILY #90 tabs 07/21/22 02/10/23 Rx release fluticasone 500 mcg-salmeterol 50 1 inh inhalation BID #60 ea 08/04/22 02/10/23 Rx mcg/dose blistr powdr for inhalation (Advair Diskus) amlodipine 5 mg tablet 5 mg PO DAILY #90 tabs 11/05/22 02/10/23 Rx metoprolol tartrate 25 mg tablet 25 mg PO BID #180 tabs 11/16/22 02/10/23 Rx rivaroxaban 15 mg tablet (Xarelto) 15 mg PO PM #90 tabs 12/25/22 02/10/23 Rx triamterene 37.5 1 tab PO DAILY #90 tabs 12/25/22 02/10/23 Rx mg-hydrochlorothiazide 25 mg tablet (Maxzide-25mg) esomeprazole magnesium 40 mg 40 mg PO DAILY #90 caps 01/05/23 02/10/23 Rx capsule,delayed release (Nexium) rosuvastatin 40 mg tablet 20 mg PO DAILY #90 tabs 01/21/23 02/10/23 Rx tramadol 37.5 mg-acetaminophen 325 1 tab PO Q6H PRN pain #60 tabs 01/25/23 02/10/23 Rx mg tablet oxycodone 5 mg tablet See Rx Instructions .Route 02/09/23 02/10/23 Rx .COMPLEX PRN pain (scale score 7-10) #12 tabs calcium carbonate 600 mg-vitamin 1 cap PO HS 02/10/23 02/10/23 History D3 25 mcg (1,000 unit) capsule vitamin B complex 1 tab PO DAILY 02/10/23 02/10/23 History gabapentin 100 mg capsule 100 mg PO TID #270 caps 02/11/23 Rx losartan 100 mg tablet 100 mg PO DAILY #90 tabs 02/11/23 Rx Past Med/Surg History Medical History Abnormal mammogram Acid reflux disease AF (paroxysmal atrial fibrillation) Allergic rhinitis Aortic stenosis CAD (coronary artery disease) Carotid artery stenosis CKD (chronic kidney disease), stage III Cystocele, midline Degenerative lumbar spinal stenosis Diastolic heart failure EKG, abnormal Generalized osteoarthritis of multiple sites Glaucoma H/O TIA (transient ischemic attack) and stroke History of breast cancer Hypercholesterolemia Hypertension Iron deficiency anemia Mitral regurgitation Pessary maintenance Postinflammatory pulmonary fibrosis Restless legs syndrome UTI symptoms Surgical History H/O dilation and curettage H/O eye surgery History of bilateral knee replacement History of esophagogastroduodenoscopy (EGD) S/P appendectomy S/P breast lumpectomy S/P cardiac cath S/P carotid endarterectomy S/P cataract extraction S/P cholecystectomy S/P colonoscopy S/P coronary artery stent placement S/P hysterectomy S/P sinus surgery S/P TAVR (transcatheter aortic valve replacement) S/P tubal ligation Family History Father Myocardial infarction Other Heart disease Hypertension Pancreatic cancer Prostate cancer Denies family history of Ovarian cancer Breast cancer Colorectal cancer Social History Smoking Status: Never smoker Second Hand Exposure: No; Do You Dip or Chew Tobacco: No; Hx Alcohol Use: No Hx Substance Use: No Preferred Language: Citizen Of [place] Communication Ability: Effective Visual Impairment: Limited Hearing Ability: Normal Ordnance Keeper Required: No Beliefs That Will Affect Care: None marital status: / Current Living Situation: Alone current occupational status: retired How many Children do You have: 2 How many Children do You have Comment: 5 step-children Other Information That Helps Us Care for You: No Feels Safe at Home: Yes Safety Concerns: Feels Safe At This Time Childhood Exposure to Second-Hand Smoke: Yes Diet: low salt and regular caffeine: No Dental Care, Regularly: Yes Physical Activity Frequency: Does not Exercise Physical Activity Frequency Comment: yard/house work Seatbelt Use: always Sunscreen Use: Yes Do you think of yourself as: straight/heterosexual Gender Identity: Female Assistive Devices: Cane and Walker Review of Systems All systems reviewed & are unremarkable except as noted in HPI & below. Physical Exam . Physical examination the right leg reveals no obvious deformity. She likes to hang it over the edge of the bed for unclear reasons but says it feels more comfortable there. The leg is well aligned. She had a well-healed incision in the front of her knee. I will detect any knee effusion. There is no bruising of the right leg. She can do a straight leg raise. Describes some lateral hip pain that radiates down the medial side of her knee. I can passively rotate her hip without any pain at all. She is neurologically intact. Once again she can do a straight leg raise. Summation of left hip and leg reveals single bruise over the lateral side of the hip. Some mild tenderness there. She can do a straight leg raise. Minimal pain with this. X-rays x-ray of the right femur and the right knee were reviewed. Shows a skeletally mature patient. The knee replacements in good position. No signs of problems. No signs of loosening no signs of fracture. He does have a pretty good bone to her femur but no signs of fracture. Mild to hip arthritis. Results & Data Results & Data Laboratory Results . Diagnostic Findings . X-rays of the right femur and the right knee were reviewed. Shows evidence of the right knee replacement. No signs of problems. Minimal if any effusion. Mild hip arthritis. Good cortices. She got anterior lateral bone in her femur but no signs of fracture. PG Care Time/CCT Total # of Minutes Spent Total Time Spent with Patient: Total time spent is greater than 50% in coordination of care (as documented) at patient's floor/unit and/or counseling patient: Coding Level of Care Code 18357 IN/OBS CONSULT LVL 4,60M Diagnoses Contusion of knee, right S80.01XA Fall W19.XXXD Encounter type: subsequent encounter Acute pain of right knee M25.561 (2) Fall Encounter type: subsequent encounter Qualified Code(s): W19.XXXD - Unspecified fall, subsequent encounter
[2023-02-12] MEDS: FLUTICASONE/VILANTEROL 200/25MCG 14 PUFFS/INHALER INH SCH (08:25)
[2023-02-12] MEDS: GABAPENTIN 100 MG CAP PO SCH ×3 (08:25→20:37)
[2023-02-12] MEDS: MAGNESIUM OXIDE 400 MG TAB PO SCH (08:26)
[2023-02-12] MEDS: amLODIPine BESYLATE 5 MG TAB PO SCH (08:26)
[2023-02-12] MEDS: LOSARTAN POTASSIUM 50 MG TAB PO SCH (08:26)
[2023-02-12] MEDS: ASPIRIN 81 MG ECTAB PO SCH (08:26)
[2023-02-12] MEDS: METOPROLOL TARTRATE 25 MG TAB PO SCH ×2 (08:26→20:39)
[2023-02-12] MEDS: CETIRIZINE HCL 10 MG TABLET PO SCH (08:27)
[2023-02-12] MEDS: ROSUVASTATIN CALCIUM 10 MG TAB PO SCH (08:27)
[2023-02-12] MEDS: ACETAMINOPHEN 500 MG TAB PO SCH ×3 (08:27→20:38)
[2023-02-12] MEDS: PANTOprazole 40 MG TAB PO SCH (08:27)
[2023-02-12] MEDS: oxyCODONE HCL IR 5 MG TAB (IMMEDIATE RELEASE) PO PRN (10:12)
[2023-02-12 10:31] LABS: Hematocrit (blood only) 24.9 % (37.0-47.0); Mean Corpuscular Hemoglobin 31.4 pg (25.0-34.0); Mean Corpuscular Hgb Conc 32.1 g/dL (32.0-36.0); Mean Corpuscular Volume 97.6 fL (80.0-100.0); Mean Platelet Volume 10.7 fL (9.4-12.4); Platelet Count 132 K/uL (130-400); RDW Coefficient of Variation 12.8 % (11.5-14.5); RDW Standard Deviation 45.5 fL (36.4-46.3); Red Blood Count 2.55 M/uL (4.20-5.40); White Blood Count 5.14 K/ul (4.8-10.8)
[2023-02-12 10:52] LABS: Albumin Globulin Ratio 1.5 (0.9-2); Albumin Level 3.2 gm/dl (3.4-5.0); BUN Creatinine Ratio 23.7 (10-20); Bilirubin,Total 0.8 mg/dl (0.2-1.0); Calcium 8.6 mg/dl (8.6-10.3); Creatinine Clr Calc Pharmacy 26.9 ml/min; Est GFR (African American) 35.4 ml/min; Est GFR (Non-African American) 30.5 ml/min; Globulin 2.2 gm/dl (2.5-4.0); Potassium 4.4 mmol/L (3.5-5.1); Total Protein 5.4 gm/dl (6.0-8.3)
--- NOTE | 2023-02-12 13:17 | CT Scan Report ---
CT abd pelvis wo con CLINICAL HISTORY: eval for retroperioneal bleed TECHNIQUE: Helical axial images of the abdomen and pelvis were obtained. Automated dose lowering tech niques and/or adjustment according to patient size were utilized for this exam. This exam was perfor med without intravenous contrast. CT DOSE: 1074.83 mGy.cm COMPARISON: None available at the time of this dictation. FINDINGS: Lower chest: Bibasilar atelectasis versus scarring is seen. Liver: Unremarkable. No focal lesions are seen. Gallbladder and biliary tree: Patient is status post cholecystectomy. No intra- or extrahepatic bilia ry ductal dilation. Pancreas: Unremarkable, no focal lesions. Spleen: Unremarkable. Adrenals: Unremarkable. Kidneys and ureters: Renal cysts are seen. Nonobstructive stones are seen. Bladder: Unremarkable. Reproductive organs: Patient is status post hysterectomy. A vaginal pessary is seen. Bowel: Diverticulosis is seen without evidence of diverticulitis. Lymph nodes Retroperitoneal: Subcentimeter lymph nodes are noted. Pelvic: Unremarkable. Mesenteric: Unremarkable. Peritoneum: Normal. Vessels: Atherosclerotic calcifications are seen. Abdominal wall: A fat-containing umbilical hernia is seen. Bones: Degenerative changes in the visualized spine. IMPRESSION: No acute abnormalities and in particular no evidence of retroperitoneal or intraperitoneal hemorrhage . ACT 112: Negative or not required by law. Electronically signed by: Marv Lino M.D. 02/12/2023 1:14 PM
--- NOTE | 2023-02-12 17:14 | Hospitalist Progress Note ---
Date of Service February 12, 2023 Assessment & Plan (1) Fall: Plan: 87 y/o female with a PMHx of a fib on Xarelto, s/p TAVR, B TKR, HTN, HLD, and reactive airway disease here for evaluation of her bilateral knee and left hip pain admitted for pain control and possible placement at rehab. Acute mechanical Fall, pain with ambulation and movement of the lower extremities following a fall 02/08. no signs of fracture on femur XRay and CXR , history of B/L TKR right knee is very tender with some effusion we did consult orthopedics, and evaluated hardware concurs no fracture or internal derangement right toe fracture, fifth toe avulsion fracture patient had previously also had a right third toe dislocation which was reduced Admitted for pain control. Improving daily PT/OT evaluations endorses subacute nursing facility subacute rehab acute on chronic anemia Patient has significant ecchymosis on exam. Clinical course complicated by alf anticoagulation with Xarelto for atrial fibrillation. 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 Holding diuretics. amlodipine for chronic hypertension losartan continues A fib on Xarelto at this time we will hold Xarelto until further evaluation of her anemia Patient rate and rhythm controlled with metoprolol 25 mg bid Patient is status post TAVR (2) Contusion of knee, right: Plan: Evaluation by orthopedics feels no internal derangement (3) Contusion of left hip and thigh: Plan Anticipate discharge 02/13 Admission and Anticipated Discharge Date Admission Date: February 10, 2023 Subjective Patient states aches and pains are improving was evaluated by orthopedics in the morning of 02/12 is particularly with her painful knee and was felt to have no internal derangement. [facility] likely on 527 Initial a.m. hemoglobin had dropped to 8 afternoon hemoglobin was [address] scan abdomen pelvis look for retroperitoneal bleed and also parenchymal injury to internal organs these were not corroborated on exam exam was relatively normal Physical Exam Physical Exam: Physical exam was without remark with exception of her bruises from 1 day prior. She has no particular abdominal pain and some minor right flank bruising which looks traumatic and no Mckinney Ladd sign Results & Data Results & Data Vital Signs (Past 12 Hours) Vital Signs Temp Pulse Pulse Resp BP BP Pulse Ox 02/12/23 15:17 98.8 F 77 16 112/60 94 02/12/23 09:15 99.5 F 88 14 129/61 99 02/12/23 07:44 98.6 F 74 16 145/67 H 98 O2 Del Method O2 Flow Rate 02/12/23 15:17 Room Air 02/12/23 09:15 Nasal Cannula 2 02/12/23 07:44 Nasal Cannula 3 Laboratory Results Reviewed CBC reviewed afternoon hemoglobin reviewed chemistry panel PG Care Time/CCT Total # of Minutes Spent Total Time Spent with Patient: Total time spent is greater than 50% in coordination of care (as documented) at patient's floor/unit and/or counseling patient: Coding Level of Care Code 17063 SUB INP/OBS CARE 2/35MIN Diagnoses Fall W19.XXXD Encounter type: subsequent encounter Contusion of knee, right S80.01XA Contusion of left hip and thigh S70.02XA; S70.12XA (1) Fall Encounter type: subsequent encounter Qualified Code(s): W19.XXXD - Unspecified fall, subsequent encounter
[2023-02-12] MEDS: RIVAROXABAN 15 MG TAB PO SCH (17:47)
[2023-02-13] MEDS: oxyCODONE HCL IR 5 MG TAB (IMMEDIATE RELEASE) PO PRN (03:10)
[2023-02-13 07:20] LABS: Hematocrit (blood only) 25.1 % (37.0-47.0); Hemoglobin 8.1 g/dl (12.0-16.0); Mean Corpuscular Hemoglobin 31.4 pg (25.0-34.0); Mean Corpuscular Hgb Conc 32.3 g/dL (32.0-36.0); Mean Corpuscular Volume 97.3 fL (80.0-100.0); Mean Platelet Volume 10.5 fL (9.4-12.4); Platelet Count 154 K/uL (130-400); RDW Coefficient of Variation 12.8 % (11.5-14.5); RDW Standard Deviation 45.5 fL (36.4-46.3); Red Blood Count 2.58 M/uL (4.20-5.40); White Blood Count 4.86 K/ul (4.8-10.8)
[2023-02-13 07:22] LABS: Creatinine Clr Calc Pharmacy 27.6 ml/min; Est GFR (African American) 36.5 ml/min; Est GFR (Non-African American) 31.5 ml/min
[2023-02-13] MEDS: MAGNESIUM OXIDE 400 MG TAB PO SCH (07:43)
[2023-02-13] MEDS: amLODIPine BESYLATE 5 MG TAB PO SCH (07:43)
[2023-02-13] MEDS: GABAPENTIN 100 MG CAP PO SCH (07:43)
[2023-02-13] MEDS: ROSUVASTATIN CALCIUM 10 MG TAB PO SCH (07:43)
[2023-02-13] MEDS: METOPROLOL TARTRATE 25 MG TAB PO SCH (07:43)
[2023-02-13] MEDS: CETIRIZINE HCL 10 MG TABLET PO SCH (07:43)
[2023-02-13] MEDS: ACETAMINOPHEN 500 MG TAB PO SCH (07:44)
[2023-02-13] MEDS: PANTOprazole 40 MG TAB PO SCH (07:44)
[2023-02-13] MEDS: LOSARTAN POTASSIUM 50 MG TAB PO SCH (07:44)
[2023-02-13] MEDS: FLUTICASONE/VILANTEROL 200/25MCG 14 PUFFS/INHALER INH SCH (07:45)
--- NOTE | 2023-02-13 14:18 | Discharge Summary ---
Date of Service February 13, 2023 Admission HPI Per Admitting Provider 87 y/o female with a PMHx of a fib on Xarelto, HTN, HLD, and reactive airway disease here for evaluation of her bilateral knee and left hip pain. Patient fell 02/08. She was evaluated and there were no signs of fracture at that time. Patient was found to have small right knee effusion. Patient has been unable to achieve adequate pain control on an outpatient basis. She is unable to perform her ADLs most specifically ambulation without significant pain. She has returned to the ED for further pain control. In the ED she was hypertensive with shallow breathing and desaturations. She was placed on 2L NC and has since been weaned to RA. Maintaining sats >90. Temp was 37.9. She was found to have an TOPHER with Cr of 1.45 and was started on fluid resuscitation. Hbg 10.4 as well. Repeat imaging is pending. She was able to achieve adequate pain control with one time dose of morphine 2 mg IV. She was admitted for pain control with a likely need for rehab at a skilled facility. Principal Diagnosis Falls with contusion Anemia of secondary to acute blood loss anemia, associated with chronic anticoagulation use and contusions Discharge Exam Patient awake and alert no focal complaints other than improving musculoskeletal complaints from her fall Discharge Data Allergies Allergy/AdvReac Type Severity Reaction Status Date / Time atorvastatin AdvReac Intermediate ELEVATED Verified 02/10/23 23:08 OPK LEVEL PER FAMILY PRACTICE NOTES ON CHART levofloxacin AdvReac Intermediate muscle and Verified 02/10/23 23:08 joint pain tetanus toxoid, adsorbed AdvReac Intermediate CHEST Verified 02/10/23 23:08 PAIN, RESTLESSNESS tetracycline AdvReac Unknown ESOPHAGEAL Verified 02/10/23 23:08 EROSION Consultations 02/10/23 20:13 ED Decision to Admit Stat 02/11/23 13:51 Consult Orthopedic Surgery Routine Ordered Studies 02/12/23 11:06 CT abd pelvis wo con Routine Hospital Course (1) Fall: 87 y/o female with a PMHx of a fib on Xarelto, s/p TAVR, B TKR, HTN, HLD, and reactive airway disease here for evaluation of her bilateral knee and left hip pain admitted for pain control and possible placement at rehab. Acute mechanical Fall, pain with ambulation and movement of the lower extre mities following a fall 02/08. no signs of fracture on femur XRay and CXR , history of B/L TKR right knee is very tender with some effusion we did consult orthopedics, and evaluated hardware concurs no fracture or internal derangement right toe fracture, fifth toe avulsion fracture patient had previously also had a right third toe dislocation which was reduced Improving daily PT/OT evaluations endorses subacute nursing facility subacute rehab acute on chronic anemia Patient has significant ecchymosis on exam. Clinical course complicated by half-way anticoagulation with Xarelto for atrial fibrillation. 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 Holding furosemide at time of discharge amlodipine for chronic hypertension losartan continues A fib on Xarelto at this time we will resume the Xarelto after transfer to correction facility Patient rate and rhythm controlled with metoprolol 25 mg bid Patient is status post TAVR (2) Contusion of knee, right: Evaluation by orthopedics feels no internal derangement (3) Contusion of left hip and thigh: Plan Anticipate discharge 02/13 Total Time Total Time Spent Total Time Spent (In Minutes): It required greater than 30 minutes to prepare this patient for discharge Discharge Plan Discharge Items Patient Disposition: Transfer Alf [facility] Reason For Visit: PAIN CONTROL Discharge Diagnosis: mechanical fall contusions acute blood loss anemia from injury on half-way anticoagulation fracture R 5th toe, dislocated R 3rd toe Activity: Per Instructions section Activity Comment: per PT/OT Non-emergency contact: Primary Care Provider Call non-emergency contact if: your symptoms worsen Follow-up/Referrals: Devante Landeros DO [Primary Care Provider] - Diet: Regular Addtl Attending Provider Instructions: Pt did have some acute blood loss anemia will benefit from IROn supplementation, please check blood work to assure that her blood counts are increasing, the pt does have a history of GI blood loss This patient with her anemia will have her anticoagulation held until the with reevaluation at that time. Her diuretics and losartan were also held due to acute kidney injury and her blood pressures been stable without these medications assessment for reinstitution will be required, as her creatinine has sort of settled around 1.51.4 range typically had been lower in the past Pending Studies at Discharge: No Stand-Alone Forms: My [facility] Skilled Items Patient informed of condition?: Yes DNR: No Discharge Level of Care: Skilled Communicable Disease: No Discharge Prognosis: Stable Lines: None Urinary Catheter: No Medications and DC Order Prescriptions: New acetaminophen [Tylenol Extra Strength] 500 mg Tablet 1,000 mg PO TID PRN (Reason: fever or pain) Qty: 30 0RF ferrous sulfate [iron] 325 mg (65 mg iron) tablet 325 mg PO Q OTHER DAY Qty: 20 0RF Continued fluticasone propionate [Flonase Allergy Relief] 50 mcg/actuation spray,suspension 2 sprays INTNAS DAILY PRN (Reason: allergy symptoms) Rx Instructions: administer into each nostril amlodipine 5 mg tablet 5 mg PO DAILY Qty: 90 3RF metoprolol tartrate 25 mg tablet 25 mg PO BID Qty: 180 3RF esomeprazole magnesium [Nexium] 40 mg capsule,delayed release(DR/EC) 40 mg PO DAILY Qty: 90 1RF rosuvastatin 40 mg tablet 20 mg PO DAILY Qty: 90 3RF gabapentin 100 mg capsule 100 mg PO TID Qty: 270 1RF losartan 100 mg tablet 100 mg PO DAILY Qty: 90 3RF omega 5-dun-lyx-fish oil [Fish Oil] 1,000 mg (120 mg-180 mg) capsule 1 cap PO DAILY aspirin 81 mg tablet,delayed release (DR/EC) 81 mg PO DAILY Qty: 90 3RF albuterol sulfate [Ventolin HFA] 90 mcg/actuation HFA aerosol inhaler 2 puff inhalation Q6H PRN (Reason: shortness of breath or wheezing) Qty: 18 2RF fluticasone propion-salmeterol [Advair Diskus] 500-50 mcg/dose blister with device 1 inh inhalation BID Qty: 60 1RF cetirizine 10 mg tablet 10 mg PO DAILY Qty: 30 0RF magnesium 250 mg Tablet 250 mg PO QAM Culturelle 10 billion cell Capsule 1 cap PO DAILY PreserVision Lutein 226 mg-200 unit -5 mg-0.8 mg Capsule 1 cap PO BID Soothe XP 1-4.5 % Drops 1 drp OPHTHALMIC (EYE) DIRECTED PRN (Reason: Dry Eyes) vitamin B complex Tablet 1 tab PO DAILY calcium carbonate-vitamin D3 600mg (1,500mg) -1,000 unit capsule 1 cap PO HS Changed oxycodone 5 mg tablet See Rx Instructions .ROUTE .COMPLEX PRN (Reason: pain (scale score 7-10)) Qty: 12 0RF Rx Instructions: 1 tablet of the oxycodone by mouth up to every 6 hours as needed for severe pain. Monitor for drowsiness and sedation with this. Held furosemide [Lasix] 20 mg tablet 20 mg PO DAILY PRN (Reason: edema) Qty: 30 2RF Hold Instructions: Resume on 02/16/23. Xarelto 15 mg tablet 15 mg PO PM Qty: 90 3RF Hold Instructions: Resume on 02/16/23. Rx Instructions: must administer with evening meal Discontinued triamterene-hydrochlorothiazid [Maxzide-25mg] 37.5-25 mg tablet 1 tab PO DAILY Qty: 90 3RF tramadol-acetaminophen 37.5-325 mg tablet 1 tab PO Q6H PRN (Reason: pain) Qty: 60 1RF sucralfate [Carafate] 100 mg/mL suspension 10 ml PO QID PRN (Reason: nausea) Qty: 420 5RF coenzyme Q10 100 mg capsule 100 mg PO DAILY hydrocortisone acetate [Anusol-HC] 25 mg suppository 25 mg CA BID PRN (Reason: itching) Qty: 24 1RF Glucosamine Chondroitin 550-30-1 mg Capsule 1 cap PO BID Trimo-Bustillo Jelly 0.025-0.01 % Gel 1 ea VAGINAL WK Discharge Orders: Discharge Order (Routine); Ordered 02/13/23 Ordered By: Jhon Hinojosa Admission Data Admit Date/Time: 02/10/23 21:10 Attending Provider: Jhon Hinojosa Admit Provider: Hoda Becerril Primary Care Provider: Devante Landeros Other Providers: Daquan Golden ; Lacho Ray ; Charisse Almonte Other Interventions: Discharge Summary Assessment (RN) Last Done: 02/13/23 11:26 Coding Level of Care Code 74085 INP/OBS DISCH >30 MIN Diagnoses Fall W19.XXXD Encounter type: subsequent encounter Contusion of knee, right S80.01XA Contusion of left hip and thigh S70.02XA; S70.12XA
== END 2023-02-13 11:27 ==
LOC: EDINP 16:59 → ED 16:59 → SUATTDRO 21:10 → 3W 23:30